=== PATIENT | female | born 1945 | race Hispanic/Latino ===

== ENCOUNTER 2017-07-17 08:50 | Observation (INO) | payer OTHER ==
[2017-07-17] MEDS ORDERED: NA CHLORIDE 0.9% 1,000 ML ONE (09:11)
[2017-07-17] MEDS ORDERED: METOPROLOL TARTRATE 5 MG/5 ML INJ IV ONE (09:11)
[2017-07-17 09:44] LABS: Absolute Lymphocytes (CBC) 2.5 K/uL (0.7-4.9); Absolute Monocytes 0.9 K/uL (0.1-1.3); Absolute Neutrophil 4.5 K/uL (1.8-8.0); Basophils % 0.7 % (0-1.3); Eosinophils % 1.8 % (0-4.4); Hematocrit 38.6 % (36.0-45.0); Lymphocytes % 31.2 % (15.3-44.8); MCH 26.8 pg (27.0-35.0); MCV 81.5 fL (80-100); MPV 9.1 fL (7.6-11.3); Monocytes % 11.6 % (3.3-12.3); RBC Red Blood Cell Count 4.73 M/uL (3.86-4.86)
[2017-07-17 09:47] LABS: Protime INR 0.99
[2017-07-17 09:50] LABS: Potassium 3.7 mEq/L (3.6-5.0)
[2017-07-17 09:53] LABS: Albumin 4.2 g/dL (3.2-5.5); Bilirubin Total 0.5 mg/dL (0.3-1.2); Magnesium 2.2 mg/dL (1.8-2.5); Protein, Total 8.3 g/dL (6.0-8.3)
[2017-07-17 10:12] LABS: Urine Bacteria <20 /HPF (<20); Urine Culture Reflex Order NOT NEEDED; Urine RBC <5 /HPF (NONE SEEN)
--- NOTE | 2017-07-17 10:44 | EDPHYS ---
Physician Documentation [facility] Name: Jazz Jones Age: 72 yrs Sex: Female : 1945 Arrival Date: 07/17/2017 Time: 08:58 Bed 4 Private MD: ED Physician Lawrence Rich HPI: 07/17 10:24 This 72 yrs old Female presents to ER via EMS with complaints of Chest Pain. ps1 10:24 The patient or guardian reports chest pain that is located primarily in the substernal ps1 area. 10:25 Onset: this morning, upon awakening. The pain does not radiate. Associated signs and ps1 symptoms: Pertinent positives: palpitations. The chest pain is described as burning. Duration: The patient or guardian reports a single episode, that is still ongoing. Severity of pain: At its worst the pain was moderate in the emergency department the pain has improved. monitor on arrival demonstrated afib with RVR. . Historical: - Allergies: 09:00 No Known Allergies; ae1 - Home Meds: 09:00 amlodipine oral once daily [Active]; herbal supplements [Active]; Hydrochlorothiazide ae1 Oral [Active]; lisinopril Oral once daily for Hypertension [Active]; Tribenzor 40-5-12.5 mg Oral tab 1 tab once daily [Active]; - PMHx: 09:00 Anxiety; Diabetes - NIDDM; Hypertension; ae1 - Immunization history:: Flu vaccine is not up to date. - Social history:: Smoking status: Patient/guardian denies using tobacco. - Ebola Screening: : Patient negative for fever greater than or equal to 101.5 degrees Fahrenheit, and additional compatible Ebola Virus Disease symptoms Patient denies exposure to infectious person. ROS: 10:25 Constitutional: Negative for fever, chills, and weight loss, Eyes: Negative for injury, ps1 pain, redness, and discharge. 10:25 Abdomen/GI: Negative for abdominal pain, nausea, vomiting, diarrhea, and constipation, Back: Negative for injury and pain, : Negative for injury, bleeding, discharge, and swelling, MS/Extremity: Negative for injury and deformity, Skin: Negative for injury, rash, and discoloration, Neuro: Negative for headache, weakness, numbness, tingling, and seizure. 10:25 Cardiovascular: Positive for chest pain, palpitations. 10:25 Respiratory: Positive for cough, with no reported sputum. Exam: 10:25 Constitutional: This is a well developed, well nourished patient who is awake, alert, ps1 and in no acute distress. Head/Face: Normocephalic, atraumatic. Eyes: Pupils equal round and reactive to light, extra-ocular motions intact. Lids and lashes normal. Conjunctiva and sclera are non-icteric and not injected. ENT: Nares patent. No nasal discharge, no septal abnormalities noted. Tympanic membranes are normal and external auditory canals are clear. Oropharynx with no redness, swelling, or masses, exudates, or evidence of obstruction, uvula midline. Mucous membranes moist. Chest/axilla: Normal chest wall appearance and motion. Nontender with no deformity. No lesions are appreciated. 10:25 Cardiovascular: Rate: tachycardic, Rhythm: irregularly irregular, Pulses: no pulse deficits are appreciated. Vital Signs: 08:58 BP 163 / 64; Pulse 114; Resp 22; Temp 97.9(O); Pulse Ox 93% on R/A; Weight 104.33 kg ae1 (R); 09:29 BP 163 / 64; Pulse 67; Resp 15; Pulse Ox 100% on 2 lpm NC; ae1 10:18 BP 119 / 52; Pulse 50; Resp 19; Pulse Ox 98% on NC; jb1 10:52 BP 136 / 53; Pulse 72; Resp 18; Pulse Ox 98% on R/A; ae1 11:54 BP 139 / 71; Pulse 60; Resp 15; Pulse Ox 98% on R/A; ae1 MDM: 09:01 Data reviewed: vital signs, nurses notes, EMS record, lab test result(s), EKG, ps1 radiologic studies. Medication response: metoprolol iV. ED course: Patient spontaneously converted with IV metoprolol. Will give 50mg PO and plan for admission for chest pain rule out. . 09:09 Patient medically screened. ps1 07/17 09:08 Order name: BNP; Complete Time: 10: ps1 07/17 09:08 Order name: CBC with Diff; Complete Time: 10:23 ps1 07/17 09:08 Order name: Magnesium; Complete Time: 10: ps1 07/17 09:08 Order name: PT-INR; Complete Time: 10: ps1 07/17 09:08 Order name: Ptt, Activated; Complete Time: 10:23 ps1 07/17 09:08 Order name: Troponin (emerg Dept Use Only); Complete Time: 10: ps1 07/17 09:08 Order name: XRAY Chest (1 view); Complete Time: 11:37 ps1 07/17 09:08 Order name: EKG; Complete Time: 09:09 ps1 07/17 09:08 Order name: CMP; Complete Time: 10: [facility] 07/17 09:21 Order name: Urine Culture jb 07/17 09:21 Order name: Urine Microscopic Only; Complete Time: 10:23 jb 07/17 09:29 Order name: Urine Dipstick--Ancillary (enter results) 07/17 09:08 Order name: Cardiac monitoring; Complete Time: 09: ps1 07/17 09:08 Order name: EKG - Nurse/Tech; Complete Time: 09: ps1 07/17 09:08 Order name: IV Saline Lock; Complete Time: 09: ps1 07/17 09:08 Order name: Labs collected and sent; Complete Time: 09: ps1 07/17 09:08 Order name: O2 Per Protocol; Complete Time: 09: ps1 07/17 09:08 Order name: O2 Sat Monitoring; Complete Time: 09: [facility] 07/17 09:08 Order name: Urine Dipstick-Ancillary (obtain specimen); Complete Time: 09: [facility] 07/17 11:04 Order name: Heart Healthy EDAR EC:01 Rate is 152 beats/min. Rhythm is irregular. QRS Dubberly is Normal. QRS interval is normal. ps1 QT interval is normal. ST Segment is depressed in leads V2, V3, V4, V5. Clinical impression: Atrial Fibrillation and atrial fibrillation with RVR. Interpreted by me. Administered Medications: 09:09 Drug: Metoprolol 5 mg Route: IVP; Site: right antecubital; ae1 10:25 Follow up: Response: Cardiac rhythm changed ae1 09:09 Drug: NS 0.9% 1000 ml Route: IV; Rate: 1 bolus; Site: right antecubital; ae1 11:55 Follow up: IV Status: Completed infusion ae1 Disposition: 10:31 Critical Care:. ps1 Disposition: 07/17/17 10:43 Hospitalization ordered by Tad Cerda for Inpatient Admission. Preliminary diagnosis is Atrial fibrillation with RVR. Chest pain. - Bed requested for Telemetry/MedSurg (Inpatient). - Status is Inpatient Admission. ae1 - Condition is Stable. - Problem is new. - Symptoms have improved. UTI on Admission? No Critical care time excluding procedures: 10:31 Critical care time: Bedside Care: 45 minutes. Total time: 45 minutes ps1 Signatures: Dispatcher [employer] Nadira Fuentes RN RN dw Andrea Nelson RN RN ae1 Lawrence Rich MD MD ps1 Corrections: (The following items were deleted from the chart) 11:46 10:43 Hospitalization Ordered by Tad Cerda DO for Inpatient Admission. Preliminary diagnosis is Atrial fibrillation with RVR. Chest pain. Bed requested for Telemetry/MedSurg (Inpatient). Status is Inpatient Admission. Condition is Stable. Problem is new. Symptoms have improved. UTI on Admission? No. ps1 12:27 11:46 07/17/2017 10:43 Hospitalization Ordered by Tad Cerda DO for Inpatient ae1 Admission. Preliminary diagnosis is Atrial fibrillation with RVR. Chest pain. Bed requested for Telemetry/MedSurg (Inpatient). Status is Inpatient Admission. Condition is Stable. Problem is new. Symptoms have improved. UTI on Admission? No. dw
--- NOTE | 2017-07-17 10:44 | ER ---
Nurse's Notes [facility] Name: Jazz Jones Age: 72 yrs Sex: Female : 1945 Arrival Date: 07/17/2017 Time: 08:58 Bed 4 Private MD: Diagnosis: Atrial fibrillation with RVR. Chest pain Presentation: 07/17 09:01 Presenting complaint: EMS states: Patient called EMS for chest pain that awake patient ae1 from sleep this morning. Patient describes pain as "burning" to the med sternal area. Patient also reports cough for the last 2 weeks. Transition of care: patient was not received from another setting of care. Onset of symptoms was July 17, 2017 at 06:00. Risk Assessment: Do you want to hurt yourself or someone else? Patient reports no desire to harm self or others. Initial Sepsis Screen: Does the patient meet any 2 criteria? RR > 20 per min. HR > 90 bpm. Does the patient have a suspected source of infection? No. Patient's initial sepsis screen is negative. Care prior to arrival: Medication(s) given: Normal saline infusion, 500 mL, EKG, afib in the 140s IV initiated. 18 GA, in the right antecubital area. 09:01 Acuity: ISABEL 2 ae1 09:01 Method Of Arrival: EMS: [facility] ae1 Triage Assessment: 09:04 General: Appears uncomfortable, obese, Behavior is cooperative, anxious. Pain: Denies ae1 pain. Complains of pain in Patient denies pain at this time but had chest pain this morning to mid sternal area. Neuro: Level of Consciousness is awake, alert, obeys commands, Oriented to person, place, time, situation. Cardiovascular: Heart tones S1 S2 present Rhythm is atrial fibrillation. Respiratory: Reports shortness of breath at rest Breath sounds are clear bilaterally. GI: Abdomen is round obese, Bowel sounds present X 4 quads. : Urine is clear. Derm: Skin is pale. Historical: - Allergies: 09:00 No Known Allergies; ae1 - Home Meds: 09:00 amlodipine oral once daily [Active]; herbal supplements [Active]; Hydrochlorothiazide ae1 Oral [Active]; lisinopril Oral once daily for Hypertension [Active]; Tribenzor 40-5-12.5 mg Oral tab 1 tab once daily [Active]; - PMHx: 09:00 Anxiety; Diabetes - NIDDM; Hypertension; ae1 - Immunization history:: Flu vaccine is not up to date. - Social history:: Smoking status: Patient/guardian denies using tobacco. - Ebola Screening: : Patient negative for fever greater than or equal to 101.5 degrees Fahrenheit, and additional compatible Ebola Virus Disease symptoms Patient denies exposure to infectious person. Screenin:31 Abuse screen: Denies threats or abuse. Nutritional screening: No deficits noted. ae1 Tuberculosis screening: No symptoms or risk factors identified. Fall Risk None identified. Assessment: 09:16 Reassessment: HR decreased from 114-140, to 74 bpm, still atrial fibrillation. ae1 09:30 Pain: Pain does not radiate. Pain began suddenly. ae1 09:45 Reassessment: Patient was incontinent of urine. Bedding changed, pull-up applied, ae1 patient up to bedside commode as well to urinate again. 10:25 Reassessment: Patient appears in no apparent distress at this time. Patient and/or ae1 family updated on plan of care and expected duration. Pain level reassessed. Patient states feeling better. Patient states symptoms have improved. Pain: Denies pain. 10:53 Reassessment: Patient appears in no apparent distress at this time. Patient and/or ae1 family updated on plan of care and expected duration. Pain level reassessed. Patient states feeling better. Patient states symptoms have improved. Vital Signs: 08:58 BP 163 / 64; Pulse 114; Resp 22; Temp 97.9(O); Pulse Ox 93% on R/A; Weight 104.33 kg ae1 (R); 09:29 BP 163 / 64; Pulse 67; Resp 15; Pulse Ox 100% on 2 lpm NC; ae1 10:18 BP 119 / 52; Pulse 50; Resp 19; Pulse Ox 98% on NC; jb1 10:52 BP 136 / 53; Pulse 72; Resp 18; Pulse Ox 98% on R/A; ae1 11:54 BP 139 / 71; Pulse 60; Resp 15; Pulse Ox 98% on R/A; ae1 ED Course: 08:58 Patient arrived in ED. ae1 09:00 Lawrence Rich MD is Attending Physician. ps1 09:03 Triage completed. ae1 09:03 Oxygen administration via nasal cannula Response to oxygen therapy: symptoms improved. ae1 09:03 Placed in gown. Bed in low position. Call light in reach. Side rails up X2. Cardiac ae1 monitor on. Pulse ox on. NIBP on. Warm blanket given. 09:05 EKG completed in triage. Results shown to MD. ae1 09:15 Andrea Nelson, RN is Primary Nurse. ae1 09:22 Initial lab(s) drawn, by me, sent to lab. EKG done, by ED staff, reviewed by Lawrence Rich MD. 09:26 XRAY Chest (1 view) In Process Unspecified. EDMS 09:30 Arm band placed on left wrist. ae1 10:43 Tad Cerda DO is Hospitalizing Provider. ps1 12:06 No provider procedures requiring assistance completed. Patient admitted, IV remains in ae1 place. Administered Medications: 09:09 Drug: Metoprolol 5 mg Route: IVP; Site: right antecubital; ae1 10:25 Follow up: Response: Cardiac rhythm changed ae1 09:09 Drug: NS 0.9% 1000 ml Route: IV; Rate: 1 bolus; Site: right antecubital; ae1 11:55 Follow up: IV Status: Completed infusion ae1 Outcome: 10:43 Decision to Hospitalize by Provider. ps1 12:06 Admitted to Tele accompanied by tech, family with patient, via stretcher, room 413, ae1 with chart, Report called to FILIPE Guerra 12:06 Condition: stable 12:06 Instructed on follow up and referral plans. the need for admit, Demonstrated understanding of instructions. 12:27 Patient left the ED. ae1 Signatures: Dispatcher [employer] Alexandre Adamson Andrea, FILIPE RN josh1 Lawrence Rich MD MD ps1 Corrections: (The following items were deleted from the chart) 10:25 10:20 Reassessment: ae1 ae1
--- NOTE | 2017-07-17 11:34 | RAD REPORT ---
EXAM DESCRIPTION: RAD - Chest Single View - 07/17/2017 9:33 am CLINICAL HISTORY: Chest pain COMPARISON: April 09 TECHNIQUE: AP portable chest image was obtained 0916 hours . FINDINGS: No focal lung parenchymal process. Lung parenchyma similar to comparison. Heart size is ac centuated by body habitus and portable technique. No true vascular engorgement suspected. No measurab le pleural effusion and no pneumothorax. No gross bony abnormality seen. No acute aortic findings jesus pected. IMPRESSION: No acute cardiopulmonary process. Large body habitus and portable technique accentuate heart, vasculature and lung markings.
[2017-07-17] MEDS ORDERED: ACETAMINOPHEN 500 MG TAB PO PRN (12:52)
--- NOTE | 2017-07-17 12:58 | P.HP ---
Certification for Inpatient Patient admitted to: Observation Patient will require the following post-hospital care: None Practitioner: I am a practitioner with admitting privileges, knowledge of patient current condition, hospital course, and medical plan of care. Services: Services provided to patient in accordance with Admission requirements found in Title 42 Section 412.3 of the Code of Federal Regulations <Ratna Reyes - Last Filed: 07/17/17 13:15> Patient admitted to: Observation With expected LOS: <2 Midnights Patient will require the following post-hospital care: None Practitioner: I am a practitioner with admitting privileges, knowledge of patient current condition, hospital course, and medical plan of care. Services: Services provided to patient in accordance with Admission requirements found in Title 42 Section 412.3 of the Code of Federal Regulations <ElmiraphilomenaTad - Last Filed: 07/17/17 13:54> Patient History Date of Service: 07/17/17 Primary Care Provider: Dr. Burnett Reason for admission: Chest pain with new onset A. fib History of Present Illness: Pt was awoken from sleep with chest pain. Noted palpitations. Pt states this is new but is unable to get rid of an annoying cough for a while now Home medications list reviewed: Yes (Attempted to verify med list with [employer], unable 2nd to [employer] computer prob) - Past Medical/Surgical History Has patient received pneumonia vaccine in the past: No Diabetic: No -: HTN -: Anxiety -: "borderline diabetic" - Social History Smoking Status: Never smoker Alcohol use: No CD- Drugs: No Caffeine use: Yes Place of Residence: Home <Ratna Reyes - Last Filed: 07/17/17 13:15> Date of Service: 07/17/17 History of Present Illness: 72-year-old female with history of hypertension came to the emergency room with palpitations and chest pain. Patient takes multiple medications for blood pressure. Patient had some mild shortness of breath. Edema to the lower extremities noted. Upon evaluation in the emergency room she was found to be in new onset atrial fibrillation. Patient given medication in the ER. This corrected quickly. Patient now on back in normal sinus rhythm. When I evaluated the patient she was not in any distress. Patient remained stable. Patient has seen Cardiology in the past. - Past Medical/Surgical History Has patient received pneumonia vaccine in the past: No Diabetic: No -: Pre diabetes Past Surgical History: Reviewed- Non-Contributory Psychosocial/ Personal History: Patient is - Family History Family History: Reviewed- Non-Contributory - Social History Smoking Status: Never smoker Alcohol use: No CD- Drugs: No Caffeine use: Yes Place of Residence: Home <Tad Cerda - Last Filed: 07/17/17 13:54> Allergies No Known Allergies Allergy (Verified 06/19/16 08:35) Home Medications: Amlodipine [Norvasc*] 10 mg PO DAILY 06/19/16 Hydrochlorothiazide [Hydrochlorothiazide*] 12.5 mg PO DAILY 06/19/16 Lisinopril [Prinivil*] 20 mg PO DAILY 06/19/16 Doxazosin [Cardura*] 1 mg PO BID #60 tab 06/20/16 Review of Systems General: Unremarkable Eyes: Unremarkable ENT: Unremarkable Respiratory: Cough Cardiovascular: Chest Pain, Palpitations Gastrointestinal: Unremarkable Genitourinary: Unremarkable Musculoskeletal: Unremarkable Integumentary: Unremarkable Neurological: Unremarkable Lymphatics: Unremarkable <AmyAbbyy - Last Filed: 07/17/17 13:15> General: Unremarkable Eyes: Unremarkable ENT: Unremarkable Respiratory: Cough Cardiovascular: Chest Pain, Palpitations Gastrointestinal: Unremarkable Genitourinary: Unremarkable Musculoskeletal: Unremarkable Integumentary: As per HPI (Edema to the lower extremities) Neurological: Unremarkable Lymphatics: Unremarkable <Tad Cerad - Last Filed: 07/17/17 13:54> Physical Examination - Vital Signs Temperature: 97.9 F Blood Pressure: 139/71 Pulse: 60 Respirations: 15 Pulse Ox (%): 98 - Physical Exam General: In no apparent distress, Oriented x3 HEENT: Atraumatic, Normocephalic Neck: Supple, 2+ carotid pulse no bruit, JVD not distended Respiratory: Normal air movement, Other (bases with mild crackles) Cardiovascular: Normal pulses, No gallops, No rubs Gastrointestinal: Normal bowel sounds Musculoskeletal: No clubbing, No swelling Integumentary: No rashes Neurological: Normal speech, Normal strength at 5/5 x4 extr Lymphatics: No axilla or inguinal lymphadenopathy External genitalia: Deferred Rectal: Deferred - Studies Laboratory Data (last 24 hrs) 07/17/17 09:15: PT 11.7, INR 0.99, APTT 30.4 05/27/18 09:15: Sodium 140, Potassium 3.7, BUN 19, Creatinine 0.78, Glucose 100 , Magnesium 2.2, Total Bilirubin 0.5, AST 27, ALT 17, Alkaline Phosphatase 73 07/17/17 09:15: WBC 8.2, Hgb 12.7, Hct 38.6, Plt Count 251 07/17/17 09:15: B-Natriuretic Peptide 84 <Ratna Reyes - Last Filed: 07/17/17 13:15> - Physical Exam General: Alert, In no apparent distress, Oriented x3, Cooperative HEENT: Atraumatic, Normocephalic, PERRLA, Mucous membr. moist/pink Neck: Supple, 2+ carotid pulse no bruit, JVD not distended Respiratory: Crackles/rales (Crackles to the bases), Other Cardiovascular: Normal pulses (Patient now in normal sinus rhythm, rate controlled previously in atrial fibrillation) Gastrointestinal: Normal bowel sounds, Non-distended, No tenderness, No masses, No rebound, No guarding Integumentary: Tenderness/swelling (Mild pitting edema to the lower extremities bilateral) Neurological: Normal speech, Normal strength at 5/5 x4 extr, Normal tone, Normal affect Lymphatics: No axilla or inguinal lymphadenopathy - Studies Laboratory Data (last 24 hrs) 07/17/17 09:15: PT 11.7, INR 0.99, APTT 30.4 07/17/17 09:15: Sodium 140, Potassium 3.7, BUN 19, Creatinine 0.78, Glucose 100 , Magnesium 2.2, Total Bilirubin 0.5, AST 27, ALT 17, Alkaline Phosphatase 73 07/17/17 09:15: WBC 8.2, Hgb 12.7, Hct 38.6, Plt Count 251 07/17/17 09:15: B-Natriuretic Peptide 84 <Tad Cerda - Last Filed: 07/17/17 13:54> Assessment and Plan - Problems (Diagnosis) (1) Atrial fibrillation Current Visit: Yes Status: Acute Plan: Atrial fibrillation - Metoprolol po, will observe for return of chest pain or a. fib, Cardiology consult, anticoagulation Qualifiers: Atrial fibrillation type: paroxysmal Qualified Code(s): I48.0 - Paroxysmal atrial fibrillation Discharge Plan: Home Plan to discharge in: 24 Hours - Advance Directives Does patient have a Living Will: No Does patient have a Durable POA for Healthcare: No - Code Status/Comfort Care Code Status Assessed: Yes Code Status: Full Code Time Spent Managing Pts Care (In Minutes): 30 <Ratna Reyes - Last Filed: 07/17/17 13:15> - Problems (Diagnosis) (1) Palpitations Current Visit: Yes Status: Acute Plan: Patient presented with new onset atrial fibrillation with RVR. Patient now in normal sinus rhythm. Case discussed with cardiology. Will continue with metoprolol 50 mg 1 pill twice daily. Patient on multiple medications for blood pressure. Will hold her her home medications. Will review with cardiology. Will start DVT prophylaxis. Will continue with aspirin 325 mg daily. Will check tsh, echocardiogram. Mild overload noted. Likely underlying CHF. Will start Lasix. Recheck chest x-ray in the morning. (2) Chest pain Current Visit: Yes Status: Acute Plan: Will monitor cardiac enzymes. Will continue with above plan of care. Qualifiers: Chest pain type: unspecified Qualified Code(s): R07.9 - Chest pain, unspecified (3) Shortness of breath Current Visit: Yes Status: Acute Plan: Suspect underlying CHF. Echocardiogram ordered. Lasix ordered. Cardiology consulted. Will maintain sats above 90%. Will teach 1500 cc per day fluid restriction. (4) CHF (congestive heart failure) Current Visit: Yes Status: Suspected Plan: Suspect systolic dysfunction. Continue as above. IV Lasix started. Echocardiogram ordered. Cardiology consulted. Will teach on 1500 cc per day fluid restriction and low-salt diet. Qualifiers: Heart failure type: systolic Heart failure chronicity: acute on chronic Qualified Code(s): I50.23 - Acute on chronic systolic (congestive) heart failure (5) Hypertension Current Visit: Yes Status: Chronic Plan: Patient now on metoprolol 50 mg 1 pill twice daily. Will hold her other home medications. Qualifiers: Hypertension type: essential hypertension Qualified Code(s): I10 - Essential (primary) hypertension (6) Anxiety Current Visit: Yes Status: Chronic Plan: Will provide medication for anxiety. (7) Atrial fibrillation Current Visit: Yes Status: Acute Plan: Patient presented with atrial fibrillation with RVR. Now in normal sinus rhythm. Will continue with metoprolol 50 mg 1 pill twice daily. Will monitor closely. Will continue above plan of care. Will start DVT prophylaxis. Will start aspirin 325 mg daily. Cardiology consulted. Await further recommendations. Echocardiogram ordered. Qualifiers: Atrial fibrillation type: paroxysmal Qualified Code(s): I48.0 - Paroxysmal atrial fibrillation Discharge Plan: Home Plan to discharge in: 24 Hours - Advance Directives Does patient have a Living Will: No Does patient have a Durable POA for Healthcare: No - Code Status/Comfort Care Code Status Assessed: Yes Code Status: Full Code Physician Review: Patient Assessed, Agree with Above Assessment and Plan Time Spent Managing Pts Care (In Minutes): 55 <Tad Cerda - Last Filed: 07/17/17 13:54>
[2017-07-17 15:38] LABS: Urine Blood TRACE (NEG); Urine Glucose NEGATIVE (NEG); Urine Protein NEGATIVE (NEG); Urine Specific Gravity 1.015 (1.005-1.030); Urine pH 7.5 (5.0-7.0)
[2017-07-17 16:11] VITALS: BMI 44.9
[2017-07-17] MEDS ORDERED: ENOXAPARIN 40 MG/0.4 ML SQ SCH (17:00)
[2017-07-17] MEDS: FUROSEMIDE 20 MG/ 2ML VIAL IV SCH (17:38)
[2017-07-17] MEDS: METOPROLOL TAR 50 MG TAB PO SCH (20:39)
[2017-07-17] MEDS ORDERED: ATORVASTATIN 40 MG TAB PO SCH (21:00)
[2017-07-18 04:33] LABS: Absolute Lymphocytes (CBC) 2.3 K/uL (0.7-4.9); Absolute Neutrophil 3.7 K/uL (1.8-8.0); Basophils % 0.8 % (0-1.3); Hematocrit 33.6 % (36.0-45.0); Lymphocytes % 31.6 % (15.3-44.8); MCH 26.4 pg (27.0-35.0); MCV 81.8 fL (80-100); Monocytes % 14.4 % (3.3-12.3); RBC Red Blood Cell Count 4.11 M/uL (3.86-4.86)
[2017-07-18 05:19] LABS: Potassium 3.6 mEq/L (3.6-5.0); Thyroid Stimulating Hormone 2.3 uIU/mL (0.34-5.60)
--- NOTE | 2017-07-18 07:59 | RAD REPORT ---
EXAM DESCRIPTION: RAD - Chest Pa And Lat (2 Views) - 07/18/2017 7:10 am CLINICAL HISTORY: CHF COMPARISON: July 17 TECHNIQUE: PA and lateral views of the chest were obtained. FINDINGS: The lungs are clear of a focal mass or infiltrate. Trachea is midline. Heart size and pul monary vasculature within limits of normal. Known pulmonary edema pattern seen and no significant sahara lure or volume overload. Mild prominence of the interstitial markings is believed to be baseline for the patient. No pleural effusion or pneumothorax seen. Mild thoracic spine degenerative change present. No acute bone findings seen. No aortic abnormality. IMPRESSION: No acute cardiopulmonary process. No new or progressive finding from prior study.
[2017-07-18] MEDS: FUROSEMIDE 20 MG/ 2ML VIAL IV SCH (08:37)
[2017-07-18] MEDS: METOPROLOL TAR 50 MG TAB PO SCH (08:42)
--- NOTE | 2017-07-18 08:50 | P.DS ---
Admission Date: 07/17/17 Discharge Date: 07/18/17 Primary Care Provider: Dr. Burnett Disposition: ROUTINE DISCHARGE Discharge Condition: GOOD Reason for Admission: Chest pain with new onset A. fib Consultations: Cardiology-Dr. Hall - Problems (1) Palpitations Current Visit: Yes Status: Acute (2) Chest pain Current Visit: Yes Status: Acute Qualifiers: Chest pain type: unspecified Qualified Code(s): R07.9 - Chest pain, unspecified (3) Shortness of breath Current Visit: Yes Status: Acute (4) CHF (congestive heart failure) Current Visit: Yes Status: Suspected Qualifiers: Heart failure type: systolic Heart failure chronicity: acute on chronic Qualified Code(s): I50.23 - Acute on chronic systolic (congestive) heart failure (5) Hypertension Current Visit: Yes Status: Chronic Qualifiers: Hypertension type: essential hypertension Qualified Code(s): I10 - Essential (primary) hypertension (6) Anxiety Current Visit: Yes Status: Chronic (7) Atrial fibrillation Current Visit: Yes Status: Acute Qualifiers: Atrial fibrillation type: paroxysmal Qualified Code(s): I48.0 - Paroxysmal atrial fibrillation Brief History of Present Illness: 72-year-old female with history of hypertension came to the emergency room with palpitations and chest pain. Patient takes multiple medications for blood pressure. Patient had some mild shortness of breath. Edema to the lower extremities noted. Upon evaluation in the emergency room she was found to be in new onset atrial fibrillation. Patient given medication in the ER. This corrected quickly. Patient now on back in normal sinus rhythm. When I evaluated the patient she was not in any distress. Patient remained stable. Patient has seen Cardiology in the past. Hospital Course: Patient presented with palpitations. Patient found to have new onset atrial fibrillation. This resolved quickly in the ER. Patient was seen by Cardiology. Patient started on beta-dipti therapy. Patient remained normal sinus rhythm during her stay. At discharge patient will continue with metoprolol 50 mg 1 pill twice daily. Patient may continue with aspirin 325 mg 1 pill daily. No need for chronic anti coagulation therapy at this time. Patient will need to follow up with cardiology within the next 5 days to follow up this hospitalization. Patient will need outpatient echocardiogram and possible cardiac stress test to further address her condition. Education on atrial fibrillation will be provided. Patient has hypertension. Medications have been adjusted. At discharge Derek and Alis had been discontinued. New medication includes metoprolol 50 mg 1 pill twice daily. Patient may continue with lisinopril 20 mg daily and hydrochlorothiazide 12.5 mg once daily. Recommendation is to maintain blood pressures less 150/80. Further adjustment can be done by her PCP or cardiology. Patient has hyperlipidemia. LDL 112. New medication includes Lipitor 40 mg 1 pill once daily. Suspect CHF. At discharge patient will continue with a 1500 cc per day fluid restriction and low-salt diet. Patient will follow up with cardiology to have outpatient echocardiogram and cardiac evaluation. Patient will continue with hydrochlorothiazide 12.5 mg 1 pill once daily. Vital Signs/Physical Exam: Temp Pulse Resp BP Pulse Ox 97.5 F 58 20 151/22 H 98 07/18/17 04:00 07/18/17 08:42 07/18/17 04:00 07/18/17 08:42 07/18/17 04:00 General: Alert, In no apparent distress, Oriented x3, Cooperative HEENT: Atraumatic, Mucous membr. moist/pink Neck: Supple Respiratory: Clear to auscultation bilaterally, Normal air movement Cardiovascular: Normal pulses, Regular rate/rhythm Gastrointestinal: Normal bowel sounds, Soft and benign, Non-distended, No tenderness, No masses, No rebound, No guarding Musculoskeletal: No erythema, No tenderness, No warmth Integumentary: No tenderness/swelling, No erythema, No warmth, No cyanosis Neurological: Normal speech, Normal strength at 5/5 x4 extr, Normal tone, Normal affect Lymphatics: No axilla or inguinal lymphadenopathy Laboratory Data at Discharge: WBC 7.2 K/uL (4.3-10.9) 07/18/17 03:56 Hgb 10.9 g/dL (12.0-15.0) L 07/18/17 03:56 Hct 33.6 % (36.0-45.0) L 07/18/17 03:56 Plt Count 226 K/uL (152-406) 07/18/17 03:56 PT 11.7 SECONDS (9.5-12.5) 07/17/17 09:15 INR 0.99 07/17/17 09:15 APTT 30.4 SECONDS (24.3-36.9) 07/17/17 09:15 Sodium 136 mEq/L (135-145) 07/18/17 03:56 Potassium 3.6 mEq/L (3.6-5.0) 07/18/17 03:56 BUN 22 mg/dL (6-20) H 07/18/17 03:56 Creatinine 0.88 mg/dL (0.44-1.00) 07/18/17 03:56 Glucose 94 mg/dL (65-120) 07/18/17 03:56 Magnesium 2.2 mg/dL (1.8-2.5) 07/17/17 09:15 Total Bilirubin 0.5 mg/dL (0.3-1.2) 07/17/17 09:15 AST 27 IU/L (10-42) 07/17/17 09:15 ALT 17 IU/L (10-60) 07/17/17 09:15 Alkaline Phosphatase 73 IU/L (42-121) 07/17/17 09:15 Troponin I < 0.03 ng/mL (<0.03) 07/17/17 17:00 B-Natriuretic Peptide 84 pg/ml (<=100) 07/17/17 09:15 Triglycerides 98 mg/dL (35-160) 07/18/17 03:56 Cholesterol 200 mg/dL (<200) 07/18/17 03:56 HDL Cholesterol 68 mg/dL (29-89) 07/18/17 03:56 Cholesterol/HDL Ratio 2.94 07/18/17 03:56 Home Medications: Hydrochlorothiazide [Hydrochlorothiazide*] 12.5 mg PO DAILY 06/19/16 Lisinopril [Prinivil*] 20 mg PO DAILY 06/19/16 Aspirin Tab [Sissy Aspirin*] 325 mg PO DAILY #90 tab 07/18/17 Atorvastatin Calcium [Lipitor] 40 mg PO BEDTIME #30 tab 07/18/17 Metoprolol Tartrate [Lopressor*] 50 mg PO BID #60 tab 07/18/17 New Medications: Aspirin Tab [Sissy Aspirin*] 325 mg PO DAILY #90 tab Atorvastatin Calcium [Lipitor] 40 mg PO BEDTIME #30 tab Metoprolol Tartrate [Lopressor*] 50 mg PO BID #60 tab Patient Discharge Instructions: 1. Patient will need to follow up with her PCP in 1 week to follow up this hospitalization. 2. Patient presented with palpitations. Patient found to have new onset atrial fibrillation. This resolved quickly. Patient was seen by Cardiology. Patient started on beta- dipti therapy. At discharge patient will continue with metoprolol 50 mg 1 pill twice daily. Patient may continue with aspirin 325 mg 1 pill daily. No need for chronic anti coagulation therapy at this time. Patient will need to follow up with cardiology within the next 5 days to follow up this hospitalization. Patient will need outpatient echocardiogram and possible cardiac stress test to further address her condition. Education on atrial fibrillation will be provided. 3. Patient has hypertension. Medications have been adjusted. At discharge Norvasc and Cardura had been discontinued. New medication includes metoprolol 50 mg 1 pill twice daily. Patient may continue with lisinopril 20 mg daily and hydrochlorothiazide 12.5 mg once daily. Recommendation is to maintain blood pressures less 150/80. Further adjustment can be done by her PCP or cardiology. 4. Patient has hyperlipidemia. LDL 112. New medication includes Lipitor 40 mg 1 pill once daily. 5. Suspect CHF. At discharge patient will continue with a 1500 cc per day fluid restriction and low-salt diet. Patient will follow up with cardiology to have outpatient echocardiogram and cardiac evaluation. Patient will continue with hydrochlorothiazide 12.5 mg 1 pill once daily. Diet: AHA Activity: Fall precautions Time spent managing pt's care (in minutes): 55
[2017-07-18] MEDS ORDERED: ASPIRIN 325 MG TAB PO SCH (09:00)
[2017-07-18] MEDS ORDERED: LISINOPRIL 20 MG TAB PO SCH (09:00)
[2017-07-18] MEDS ORDERED: hydroCHLOROthiazide 12.5 MG CAP PO SCH (09:00)
--- NOTE | 2017-07-18 09:32 | CON ---
Date of Consultation: 07/17/2017 Reason For Consultation: Atypical chest pain and atrial fibrillation that have already resolved. History Of Present Illness: Ms. Jones is a 72-year-old woman. We have seen her in the office in the past. She basically has a history of anxiety, diabetes, and hypertension. She came in with atypica l chest pain, was noted to be in atrial fibrillation with rapid ventricular response. IV beta-blocke rs and p.o. beta-blockers were given. She converted to normal sinus rhythm, and her chest pain went away. She denied PND, orthopnea, pedal edema, or syncope. Denies any nausea or vomiting. Has had s ome shortness of breath and diaphoresis with her chest pain. She has already ruled out from [place] stand point. Past Medical History: As stated above. Allergies: NONE. Review of Systems: Negative. Social History: Negative. Family History: Negative. Medications: Include amlodipine, lisinopril, and hydrochlorothiazide. Physical Examination: Vital Signs: Blood pressure was 140/60, O2 saturation was 97% on room air. I's and O's were adequat e. HEENT: Negative. Neck: Supple without any bruit, lymphadenopathy, JVD, or thyromegaly. Chest: Clear to auscultation and percussion. Cardiac: Revealed a regular rhythm and rate without any murmurs, gallops, or rubs. Abdomen: Benign. Extremities: Revealed no clubbing, cyanosis, or edema. Diagnostic Data: All normal except for the EKG that was stated earlier. Her chest x-ray was negativ e. The last EKG prior to this was in March 2017, and she showed sinus bradycardia at that time. Impression And Plan: Ms. Jones is normally a patient of Dr. Diana, but she had not seen him for a few years. Again, I think Ms. Jones probably needs to be on a beta-dipti and aspirin in addition t o her lisinopril and amlodipine. From my standpoint, she can go home whenever it is okay with Dr. Bernardo horvath. I would like to see her in the office in the very near future. She really needs to have an ec hocardiogram and a Lexiscan, and then decide whether to anticoagulate her with Coumadin or any of the novel anticoagulants depending on her findings. Case was discussed with the patient and the family. She can go home whenever it is okay with Dr. Cerda. ALICIA/GARRISON Voice ID: [id number] Report ID: [id number]
[2017-07-18 11:17] VITALS: TEMP 97.6
[2017-07-18 12:23] VITALS: O2SAT 99
--- NOTE | 2017-07-18 12:43 | EKG ---
Test Date: 2017-07-18 Test Time: 07:45:17 Box Sealing Machine Operator: MARCO MEASUREMENT RESULTS: Intervals: Rate: 47 [place]: 204 QRSD: 80 QT: 468 QTc: 414 [place]: P: 26 [place]: 204 QRS: 37 T: 35 INTERPRETIVE STATEMENTS: Marked sinus bradycardia with sinus arrhythmia Abnormal ECG Compared to ECG 07/17/2017 09:55:43 Sinus rhythm no longer present Electronically Signed On 07-18-17 12:43:20 CDT by Chuy Hall
--- NOTE | 2017-07-18 12:47 | EKG ---
Test Date: 2017-07-17 Test Time: 09:01:52 Core Feeder: JODY MEASUREMENT RESULTS: Intervals: Rate: 152 [place]: QRSD: 74 QT: 254 QTc: 403 [place]: P: [place]: QRS: -4 T: 132 INTERPRETIVE STATEMENTS: Atrial fibrillation with rapid ventricular response Marked ST abnormality, possible inferior subendocardial injury Abnormal ECG Compared to ECG 04/09/2017 10:35:53 ST (T wave) deviation now present Sinus bradycardia no longer present Left ventricular hypertrophy no longer present Electronically Signed On 07-18-17 12:43:55 CDT by Chuy Hall
--- NOTE | 2017-07-18 12:47 | EKG ---
Test Date: 2017-07-17 Test Time: 09:55:43 Supervisor Microwave: JODY MEASUREMENT RESULTS: Intervals: Rate: 63 [place]: 202 QRSD: 70 QT: 412 QTc: 421 [place]: P: 48 [place]: 202 QRS: 7 T: 18 INTERPRETIVE STATEMENTS: Normal sinus rhythm Normal ECG Compared to ECG 07/17/2017 09:01:52 Atrial fibrillation no longer present ST (T wave) deviation no longer present Electronically Signed On 07-18-17 12:43:54 CDT by Chuy Hall
[2017-07-18 13:49] VITALS: BP 134/56
== END 2017-07-18 12:43 | disposition home or self-care (01) ==
LOC: ER 08:50 → ERHOLD 11:00 → INTOOBSV 11:00 → 4TH 12:13
PROVIDERS: ADMIT Family Medicine; ATTEND Family Medicine
DX: I48.0 Paroxysmal atrial fibrillation (principal); R07.9 Chest pain, unspecified; R00.2 Palpitations; I10 Essential (primary) hypertension; F41.9 Anxiety disorder, unspecified; E78.5 Hyperlipidemia, unspecified
CPT/HCPCS: 36415; 71045; 71046; 80048; 80053; 80061; 83735; 83880; 84439; 84443; 84484 ×3; 85025 ×2; 85610; 85730; 87077; 87086; 87088; 87186; 93005 ×3; 96361; 96374; 99285; G0378 ×2; J1650; J1940 ×2; J7030; 81003; 81015

== ENCOUNTER 2017-08-04 09:09 | Emergency (ER) | payer OTHER ==
[2017-08-04 09:44] LABS: Absolute Lymphocytes (CBC) 1.6 K/uL (0.7-4.9); Absolute Monocytes 0.8 K/uL (0.1-1.3); Eosinophils % 2.6 % (0-4.4); Hematocrit 36.8 % (36.0-45.0); Lymphocytes % 23.3 % (15.3-44.8); MCH 27.3 pg (27.0-35.0); MCV 82.1 fL (80-100); Monocytes % 12.5 % (3.3-12.3); RBC Red Blood Cell Count 4.49 M/uL (3.86-4.86)
[2017-08-04 09:54] LABS: Urine Blood TRACE (NEG); Urine Glucose NEGATIVE (NEG); Urine Protein TRACE (NEG); Urine Specific Gravity 1.015 (1.005-1.030)
[2017-08-04 10:09] LABS: Potassium 3.6 mEq/L (3.6-5.0)
--- NOTE | 2017-08-04 10:44 | EDPHYS ---
Physician Documentation [facility] Name: Jazz Jones Age: 72 yrs Sex: Female : 1945 Arrival Date: 08/04/2017 Time: 09:10 Bed 6 Private MD: ED Physician Elian Mccormack HPI: 08/04 09:11 This 72 yrs old Female presents to ER via Unassigned with complaints of rn Shortness Of Breath. 09:11 The patient has shortness of breath while cleaning. Onset: The symptoms/episode rn began/occurred just prior to arrival. Duration: The symptoms are intermittent. Severity of symptoms: At their worst the symptoms were moderate in the emergency department the symptoms have resolved. The patient has experienced similar episodes in the past. Reports cleaning, has hx of anxiety, states the clutter andsmall area was making her anxious, felt palpitations and sob, has resolved since EMS arrival. No other changes recently, + chronic cough from lisinopril, no fever. NO current chest pain/sob.. Historical: - Allergies: 09:16 No Known Allergies; tw2 - Home Meds: 09:16 Tribenzor 40-5-12.5 mg Oral tab 1 tab once daily [Active]; lisinopril Oral once daily tw2 for Hypertension [Active]; Hydrochlorothiazide Oral [Active]; herbal supplements [Active]; amlodipine oral once daily [Active]; - PMHx: 09:16 Anxiety; Diabetes - NIDDM; Hypertension; tw2 - Immunization history:: Adult Immunizations up to date. - Family history:: not pertinent. - Social history:: Smoking status: Patient/guardian denies using tobacco. - Ebola Screening: : Patient denies travel to an Ebola-affected area in the 21 days before illness onset. - Hospitalizations: : No recent hospitalization is reported. ROS: 09:11 Constitutional: Negative for fever, chills, and weight loss, Neck: Negative for injury, rn pain, and swelling, Cardiovascular: Negative for chest pain, and edema, Respiratory: Negative for cough, wheezing, and pleuritic chest pain, Abdomen/GI: Negative for abdominal pain, nausea, vomiting, diarrhea, and constipation, MS/Extremity: Negative for injury and deformity, Skin: Negative for injury, rash, and discoloration, Neuro: Negative for headache, weakness, and seizure. Exam: 09:11 Constitutional: This is a well developed, well nourished patient who is awake, alert, rn and in no acute distress. Head/Face: Normocephalic, atraumatic. Eyes: Pupils equal round and reactive to light, extra-ocular motions intact. Lids and lashes normal. Conjunctiva and sclera are non-icteric and not injected. Cornea within normal limits. Periorbital areas with no swelling, redness, or edema. Neck: Trachea midline, no thyromegaly or masses palpated, and no cervical lymphadenopathy. Supple, full range of motion without nuchal rigidity, or vertebral point tenderness. No Meningismus. Cardiovascular: Regular rate and rhythm with a normal S1 and S2. No gallops, murmurs, or rubs. Normal PMI, no JVD. No pulse deficits. Respiratory: Lungs have equal breath sounds bilaterally, clear to auscultation and percussion. No rales, rhonchi or wheezes noted. No increased work of breathing, no retractions or nasal flaring. Abdomen/GI: Soft, non-tender, with normal bowel sounds. No distension or tympany. No guarding or rebound. No evidence of tenderness throughout. MS/ Extremity: Pulses equal, no cyanosis. Neurovascular intact. Full, normal range of motion. Equal circumference. Neuro: Awake and alert, GCS 15, oriented to person, place, time, and situation. Cranial nerves II-XII grossly intact. Motor strength 5/5 in all extremities. Sensory grossly intact. 09:31 ECG was reviewed by the Attending Physician. rn Vital Signs: 09:11 BP 195 / 68; Pulse 48; Resp 17; Temp 98.5(O); Pulse Ox 97% on R/A; Pain 0/10; tw2 10:19 BP 179 / 67; Pulse 42; Resp 17; Pulse Ox 97% on R/A; tw2 11:33 BP 148 / 82; Pulse 86; Resp 17; Pulse Ox 95% on R/A; tw2 MDM: 09:10 Patient medically screened. rn 10:42 Differential diagnosis: Anxiety Reaction pneumonia, Pneumothorax Psychogenic pulmonary rn edema. Data reviewed: vital signs, nurses notes, lab test result(s), EKG, radiologic studies, plain films, and as a result, I will discharge patient. Counseling: I had a detailed discussion with the patient and/or guardian regarding: the historical points, exam findings, and any diagnostic results supporting the discharge/admit diagnosis, lab results, radiology results, the need for outpatient follow up, to return to the emergency department if symptoms worsen or persist or if there are any questions or concerns that arise at home. Special discussion: I discussed with the patient/guardian in detail that at this point there is no indication for admission to the hospital. It is understood, however, that if the symptoms persist or worsen the patient needs to return immediately for re-evaluation. 08/04 09:11 Order name: CBC with Diff; Complete Time: 10:06 rn 08/04 09:11 Order name: Basic Metabolic Panel; Complete Time: 10:33 rn 08/04 09:11 Order name: Troponin (emerg Dept Use Only); Complete Time: 10:33 rn 08/04 09:11 Order name: BNP; Complete Time: 10:33 08/04 09:11 Order name: XRAY Chest Pa And Lat (2 Views) 08/04 09:52 Order name: Urine Dipstick--Ancillary (enter results); Complete Time: 10:06 08/04 09:11 Order name: IV Start; Complete Time: 09:35 rn 08/04 09:11 Order name: EKG; Complete Time: 09:11 rn 08/04 09:11 Order name: EKG - Nurse/Tech; Complete Time: 09:16 rn EC:31 Rate is 49 beats/min. Rhythm is regular. QRS [place] is Normal. [place] interval is normal. QRS rn interval is normal. No Q waves. T waves are Normal. No ST changes noted. Clinical impression: Sinus bradycardia. Interpreted by me. Administered Medications: No medications were administered Disposition: 08/04/17 10:42 Discharged to Home. Impression: Hyperventilation, Anxiety disorder, unspecified. - Condition is Stable. - Discharge Instructions: Panic Attacks, Hyperventilation, Generalized Anxiety Disorder. - Medication Reconciliation Form, Thank You Letter, Antibiotic Education, Prescription Opioid Use form. - Follow up: Private Physician; When: As needed; Reason: Recheck today's complaints, Re-evaluation by your physician. - Problem is new. - Symptoms have improved. Signatures: Dispatcher [employer] EDMS Mccormack, Elian, MD MD rn Borden, Amada, RN RN tw2 Corrections: (The following items were deleted from the chart) 11:47 10:42 08/04/2017 10:42 Discharged to Home. Impression: Hyperventilation; Anxiety tw2 disorder, unspecified. Condition is Stable. Forms are Medication Reconciliation Form, Thank You Letter, Antibiotic Education, Prescription Opioid Use. Follow up: Private Physician; When: As needed; Reason: Recheck today's complaints, Re-evaluation by your physician. Problem is new. Symptoms have improved. rn
--- NOTE | 2017-08-04 10:44 | ER ---
Nurse's Notes [facility] Name: Jazz Jones Age: 72 yrs Sex: Female : 1945 Arrival Date: 08/04/2017 Time: 09:10 Bed 6 Private MD: Diagnosis: Hyperventilation;Anxiety disorder, unspecified Presentation: 08/04 09:10 Presenting complaint: EMS states: pt c/o SOB, 95%RA upon arrival, pt states she just tw2 moved to a smaller apartment and is anxious over the clutter, vs stable. Transition of care: patient was not received from another setting of care. Onset of symptoms was August 04, 2017. Risk Assessment: Do you want to hurt yourself or someone else? Patient reports no desire to harm self or others. Initial Sepsis Screen: Does the patient meet any 2 criteria? No. Patient's initial sepsis screen is negative. Does the patient have a suspected source of infection? No. Patient's initial sepsis screen is negative. Care prior to arrival: None. 09:10 Method Of Arrival: EMS: [facility] tw2 09:10 Acuity: ISABEL 3 tw2 Triage Assessment: 09:36 General: Appears in no apparent distress. Respiratory: Reports shortness of breath tw2 while cleaning and being anxious d/t clutter in smaller apartment Onset: The symptoms/episode began/occurred this morning, the patient has mild shortness of breath. Historical: - Allergies: 09:16 No Known Allergies; tw2 - Home Meds: 09:16 Tribenzor 40-5-12.5 mg Oral tab 1 tab once daily [Active]; lisinopril Oral once daily tw2 for Hypertension [Active]; Hydrochlorothiazide Oral [Active]; herbal supplements [Active]; amlodipine oral once daily [Active]; - PMHx: 09:16 Anxiety; Diabetes - NIDDM; Hypertension; tw2 - Immunization history:: Adult Immunizations up to date. - Family history:: not pertinent. - Social history:: Smoking status: Patient/guardian denies using tobacco. - Ebola Screening: : Patient denies travel to an Ebola-affected area in the 21 days before illness onset. - Hospitalizations: : No recent hospitalization is reported. Screenin:15 Abuse screen: Denies threats or abuse. Nutritional screening: No deficits noted. tw2 Tuberculosis screening: No symptoms or risk factors identified. Fall Risk None identified. Assessment: 09:12 General: Appears in no apparent distress. obese, well groomed, Behavior is calm, tw2 cooperative, appropriate for age. Pain: Denies pain. Neuro: Level of Consciousness is awake, alert, obeys commands, Oriented to person, place, time, situation. Cardiovascular: Denies chest pain, shortness of breath, Rhythm is sinus bradycardia. Respiratory: Airway is patent Respiratory effort is even, unlabored, Respiratory pattern is regular, symmetrical, Breath sounds are clear bilaterally. GI: No signs and/or symptoms were reported involving the gastrointestinal system. Abdomen is round non-distended, Bowel sounds present X 4 quads. : No signs and/or symptoms were reported regarding the genitourinary system. EENT: No signs and/or symptoms were reported regarding the EENT system. Derm: No signs and/or symptoms reported regarding the dermatologic system. Musculoskeletal: Range of motion: intact in all extremities. 09:35 Reassessment: pt taken via w/c to xray at this time. tw2 10:19 Reassessment: Patient appears in no apparent distress at this time. No changes from tw2 previously documented assessment. Patient and/or family updated on plan of care and expected duration. Pain level reassessed. Patient is alert, oriented x 3, equal unlabored respirations, skin warm/dry/pink. 11:33 Reassessment: Patient appears in no apparent distress at this time. No changes from tw2 previously documented assessment. Patient and/or family updated on plan of care and expected duration. Pain level reassessed. Patient is alert, oriented x 3, equal unlabored respirations, skin warm/dry/pink. Vital Signs: 09:11 BP 195 / 68; Pulse 48; Resp 17; Temp 98.5(O); Pulse Ox 97% on R/A; Pain 0/10; tw2 10:19 BP 179 / 67; Pulse 42; Resp 17; Pulse Ox 97% on R/A; tw2 11:33 BP 148 / 82; Pulse 86; Resp 17; Pulse Ox 95% on R/A; tw2 ED Course: 09:10 Patient arrived in ED. tw2 09:10 Elian Mccormack MD is Attending Physician. rn 09:10 Bed in low position. Call light in reach. Side rails up X 1. phototypesetting equipment monitor on. Pulse tw2 ox on. NIBP on. Warm blanket given. 09:11 Triage completed. tw2 09:11 Arm band placed on. tw2 09:15 EKG done, by ED staff, reviewed by Elian Mccormack MD. jp3 09:17 Amada Borden, RN is Primary Nurse. tw2 09:25 No provider procedures requiring assistance completed. Inserted saline lock: 22 gauge tw2 in right antecubital area, using aseptic technique. Blood collected. 09:30 Urine collected: clean catch specimen, clear, deonte colored. jb1 09:42 X-ray completed. Patient tolerated procedure well. Patient moved to radiology via jb2 wheelchair. Patient moved back from radiology. 09:43 XRAY Chest Pa And Lat (2 Views) In Process Unspecified. EDMS 11:47 IV discontinued, intact, bleeding controlled, No redness/swelling at site. Pressure tw2 dressing applied. Administered Medications: No medications were administered Outcome: 10:42 Discharge ordered by MD. rn 11:47 Patient left the ED. tw2 11:47 Discharged to home ambulatory, with significant other. tw2 11:47 Condition: stable 11:47 Discharge instructions given to patient, significant other, Instructed on discharge instructions, follow up and referral plans. Demonstrated understanding of instructions, follow-up care. Signatures: Dispatcher [employer] EDMS Alexandre Del Real jb1 Clyde Villarreal jb2 Elian Mccormack MD MD rn Wise, Tara, RN RN tw2 Gregorio Jung jp3 Corrections: (The following items were deleted from the chart) 09:31 09:30 Missed attempt(s): freddy [email or web address]
--- NOTE | 2017-08-04 11:33 | EKG ---
Test Date: 2017-08-04 Test Time: 09:15:14 Electrical Logging Engineer: NICKIE MEASUREMENT RESULTS: Intervals: Rate: 49 [place]: 188 QRSD: 88 QT: 458 QTc: 413 [place]: P: 46 [place]: 188 QRS: 0 T: 9 INTERPRETIVE STATEMENTS: Sinus bradycardia with sinus arrhythmia Otherwise normal ECG Compared to ECG 07/18/2017 07:45:17 No significant changes Electronically Signed On 08-04-17 11:32:06 CDT by Chuy Hall
--- NOTE | 2017-08-04 11:44 | RAD REPORT ---
EXAM DESCRIPTION: RAD - Chest Pa And Lat (2 Views) - 08/04/2017 9:53 am CLINICAL HISTORY: Palpitations;Dyspnea Chest pain. COMPARISON: Chest Pa And Lat (2 Views) dated 07/18/2017; Chest Single View dated 07/17/2017; Chest Pa And Lat (2 Views) dated 04/09/2017; Chest Single View dated 06/19/2016 FINDINGS: The lungs are clear. The heart is mildly prominent in size. No displaced fractures. IMPRESSION: Mild cardiomegaly.
[2017-08-04 12:18] VITALS: TEMP 98.5
[2017-08-04 12:21] VITALS: BP 148/82; O2SAT 95
== END 2017-08-04 11:47 | disposition home or self-care (01) ==
LOC: ER 09:09
DX: R06.4 Hyperventilation (principal); F41.9 Anxiety disorder, unspecified; E11.9 Type 2 diabetes mellitus without complications; I10 Essential (primary) hypertension
CPT/HCPCS: 36415; 71046; 80048; 81003; 83880; 84484; 85025; 93005; 99284

== ENCOUNTER 2017-09-07 20:55 | Emergency (ER) | payer OTHER ==
[2017-09-07] MEDS ORDERED: HYDRALAZINE HCL 20 MG/ML VIAL ONE (21:33)
[2017-09-07 21:43] LABS: Absolute Lymphocytes (CBC) 2.1 K/uL (0.7-4.9); Absolute Monocytes 0.9 K/uL (0.1-1.3); Absolute Neutrophil 5.3 K/uL (1.8-8.0); Eosinophils % 1.4 % (0-4.4); Hematocrit 36.2 % (36.0-45.0); Lymphocytes % 24.5 % (15.3-44.8); MCH 27.4 pg (27.0-35.0); MCV 82.2 fL (80-100); MPV 9.3 fL (7.6-11.3); Monocytes % 10.9 % (3.3-12.3)
[2017-09-07 21:52] LABS: Potassium 3.9 mmol/L (3.5-5.1)
--- NOTE | 2017-09-07 22:23 | RAD REPORT ---
EXAM DESCRIPTION: Anh Single View09/07/2017 9:26 pm CLINICAL HISTORY: sob COMPARISON: none FINDINGS: The lungs appear clear of acute infiltrate. The heart is borderline enlarged IMPRESSION: No acute abnormalities displayed
--- NOTE | 2017-09-07 22:35 | ER ---
Nurse's Notes [facility] Name: Jazz Jones Age: 72 yrs Sex: Female : 1945 Arrival Date: 09/07/2017 Time: 20:56 Bed 7 Private MD: Diagnosis: Hypertensive heart disease without heart failure Presentation: 09/07 20:45 Presenting complaint: EMS states: HER DOCTOR HAS BEEN CHANGING HER MEDICINES AND HER bp BLOOD PRESSURE IS UP. 20:45 Transition of care: patient was not received from another setting of care. Onset of bp symptoms is unknown. Risk Assessment: Do you want to hurt yourself or someone else? Patient reports no desire to harm self or others. Initial Sepsis Screen: Does the patient meet any 2 criteria? No. Patient's initial sepsis screen is negative. Does the patient have a suspected source of infection? No. Patient's initial sepsis screen is negative. Care prior to arrival: IV initiated. 20 GA, in the right antecubital area, Glucose check: 140. 20:45 Method Of Arrival: EMS: [facility] bp 20:45 Acuity: ISABEL 3 bp Triage Assessment: 20:45 General: Appears in no apparent distress. comfortable, obese, Behavior is cooperative, bp appropriate for age, anxious. Pain: Denies pain. EENT: No deficits noted. Neuro: Level of Consciousness is awake, alert, obeys commands, Oriented to person, place, time, situation, Appropriate for age. Cardiovascular: No deficits noted. Respiratory: Airway is patent Respiratory effort is even, unlabored, Respiratory pattern is regular, symmetrical. GI: No signs and/or symptoms were reported involving the gastrointestinal system. : No signs and/or symptoms were reported regarding the genitourinary system. Derm: No deficits noted. Musculoskeletal: Circulation, motion, and sensation intact. Range of motion: intact in all extremities. Historical: - Allergies: 21:01 Lisinopril; bp - Home Meds: 21:01 Hydrochlorothiazide Oral [Active]; Lopressor Oral [Active]; bp - PMHx: 21:01 Anxiety; Diabetes - NIDDM; Hypertension; bp - Immunization history:: Adult Immunizations up to date. - Social history:: Smoking status: Patient/guardian denies using tobacco. - Ebola Screening: : Patient negative for fever greater than or equal to 101.5 degrees Fahrenheit, and additional compatible Ebola Virus Disease symptoms Patient denies exposure to infectious person Patient denies travel to an Ebola-affected area in the 21 days before illness onset No symptoms or risks identified at this time. Screenin:06 Abuse screen: Denies threats or abuse. Denies injuries from another. Nutritional bp screening: No deficits noted. Tuberculosis screening: No symptoms or risk factors identified. Fall Risk None identified. Assessment: 21:00 General: SEE TRIAGE NOTE. bp 22:00 Reassessment: S/S IMPROVING, NIDA AND HTN NOTED ON MONITOR. LABS IN PROCESS. bp 22:59 Reassessment: PT D/C HOME AMBULATORY, DX WITH HYPERTENSIVE HEART DISEASE. bp Vital Signs: 21:00 BP 210 / 68; Pulse 50; Resp 18; Temp 98.1; Pulse Ox 98% ; Weight 104.33 kg; bp 22:00 BP 176 / 64; Pulse 50; Resp 16; Pulse Ox 98% ; bp 23:00 BP 192 / 66; Pulse 46; Resp 14; Pulse Ox 99% ; bp ED Course: 20:45 Arm band placed on. bp 20:56 Patient arrived in ED. bp 21:00 Triage completed. bp 21:00 Jake Tillman MD is Attending Physician. gs 21:00 Patient has correct armband on for positive identification. Bed in low position. Call bp light in reach. Side rails up X2. Adult w/ patient. 21:00 Maintain EMS IV. Dressing intact. Good blood return noted. Site clean \T\ dry. Gauge \T\ bp site: 20 GAUGE R AC. 21:19 Paul Rodrigues, FILIPE is Primary Nurse. bp 21:24 X-ray completed. Portable x-ray completed in exam room. Patient tolerated procedure kp1 well. 21:26 XRAY Chest (1 view) In Process Unspecified. EDMS 23:00 No provider procedures requiring assistance completed. IV discontinued, intact, bp bleeding controlled, No redness/swelling at site. Pressure dressing applied. Administered Medications: 21:30 Drug: hydrALAZINE 10 mg Route: IV; Rate: calculated rate; Site: right antecubital; bp Outcome: 22:34 Discharge ordered by . gs 23:00 Discharged to home ambulatory, with family. bp 23:00 Condition: stable 23:00 Discharge instructions given to patient, Instructed on discharge instructions, follow up and referral plans. Demonstrated understanding of instructions, follow-up care. 23:01 Patient left the ED. bp Signatures: Dispatcher [employer] EDTammy Vasquez kp1 Jake Tillman MD MD gs Peltier, Brian, FILIPE RN bp Corrections: (The following items were deleted from the chart) 21:09 21:00 Inserted saline lock: 20 gauge in right antecubital area, using aseptic bp technique. bp
--- NOTE | 2017-09-07 22:35 | EDPHYS ---
Physician Documentation [facility] Name: Jazz Jones Age: 72 yrs Sex: Female : 1945 Arrival Date: 09/07/2017 Time: 20:56 Bed 7 Private MD: ED Physician Jake Tillman HPI: 09/07 22:31 This 72 yrs old Female presents to ER via EMS with complaints of Blood gs Pressure Problem. 22:31 The patient has elevated blood pressure and discovered this at home. Onset: The gs symptoms/episode began/occurred 2 week(s) ago. Modifying factors: The symptoms are aggravated by discontinuation of meds, The symptoms are alleviated by prescription meds. Associated signs and symptoms: Pertinent positives: dyspnea, occasionally. Severity of symptoms: At its worst the blood pressure was severe, in the emergency department the blood pressure is improved, mildly. The patient has experienced similar episodes in the past, a few times. The patient has been recently seen by a physician: a animal services officer. Historical: - Allergies: 21:01 Lisinopril; bp - Home Meds: 21:01 Hydrochlorothiazide Oral [Active]; Lopressor Oral [Active]; bp - PMHx: 21:01 Anxiety; Diabetes - NIDDM; Hypertension; bp - Immunization history:: Adult Immunizations up to date. - Social history:: Smoking status: Patient/guardian denies using tobacco. - Ebola Screening: : Patient negative for fever greater than or equal to 101.5 degrees Fahrenheit, and additional compatible Ebola Virus Disease symptoms Patient denies exposure to infectious person Patient denies travel to an Ebola-affected area in the 21 days before illness onset No symptoms or risks identified at this time. ROS: 22:31 All other systems are negative. gs Exam: 22:31 Head/Face: Normocephalic, atraumatic. Eyes: Pupils equal round and reactive to light, gs extra-ocular motions intact. Lids and lashes normal. Conjunctiva and sclera are non-icteric and not injected. Cornea within normal limits. Periorbital areas with no swelling, redness, or edema. ENT: Nares patent. No nasal discharge, no septal abnormalities noted. Tympanic membranes are normal and external auditory canals are clear. Oropharynx with no redness, swelling, or masses, exudates, or evidence of obstruction, uvula midline. Mucous membranes moist. Neck: Trachea midline, no thyromegaly or masses palpated, and no cervical lymphadenopathy. Supple, full range of motion without nuchal rigidity, or vertebral point tenderness. No Meningismus. Chest/axilla: Normal chest wall appearance and motion. Nontender with no deformity. No lesions are appreciated. Cardiovascular: Regular rate and rhythm with a normal S1 and S2. No gallops, murmurs, or rubs. Normal PMI, no JVD. No pulse deficits. Respiratory: Lungs have equal breath sounds bilaterally, clear to auscultation and percussion. No rales, rhonchi or wheezes noted. No increased work of breathing, no retractions or nasal flaring. Abdomen/GI: Soft, non-tender, with normal bowel sounds. No distension or tympany. No guarding or rebound. No evidence of tenderness throughout. Back: No spinal tenderness. No costovertebral tenderness. Full range of motion. Skin: Warm, dry with normal turgor. Normal color with no rashes, no lesions, and no evidence of cellulitis. MS/ Extremity: Pulses equal, no cyanosis. Neurovascular intact. Full, normal range of motion. Neuro: Awake and alert, GCS 15, oriented to person, place, time, and situation. Cranial nerves II-XII grossly intact. Motor strength 5/5 in all extremities. Sensory grossly intact. Cerebellar exam normal. Normal gait. 22:31 Constitutional: The patient appears alert, awake. 22:31 Cardiovascular: Rate: bradycardic. 22:31 ECG was reviewed by the Attending Physician. Vital Signs: 21:00 BP 210 / 68; Pulse 50; Resp 18; Temp 98.1; Pulse Ox 98% ; Weight 104.33 kg; bp 22:00 BP 176 / 64; Pulse 50; Resp 16; Pulse Ox 98% ; bp 23:00 BP 192 / 66; Pulse 46; Resp 14; Pulse Ox 99% ; bp MDM: 21:13 Patient medically screened. gs 22:31 Differential diagnosis: hypertensive crisis, Malignant HTN, cad. Data reviewed: vital gs signs, nurses notes. Counseling: I had a detailed discussion with the patient and/or guardian regarding: the need for outpatient follow up, a animal services officer. Response to treatment: the patient's symptoms have markedly improved after treatment, and as a result, I will discharge patient. 09/07 21:15 Order name: PT-INR; Complete Time: 22:10 09/07 21:15 Order name: Basic Metabolic Panel; Complete Time: 22:10 09/07 21:15 Order name: CBC with Diff; Complete Time: 22:10 09/07 21:15 Order name: Troponin (emerg Dept Use Only); Complete Time: 22:10 09/07 21:15 Order name: XRAY Chest (1 view); Complete Time: 22:30 09/07 22:33 Order name: Urine Dipstick--Ancillary (enter results) ms 09/07 21:15 Order name: O2 Sat Monitoring; Complete Time: 21:47 09/07 21:15 Order name: EKG; Complete Time: 21:16 09/07 21:15 Order name: Cardiac monitoring; Complete Time: 21:37 09/07 21:15 Order name: EKG - Nurse/Tech; Complete Time: 21:37 09/07 21:15 Order name: IV Saline Lock; Complete Time: 21:17 09/07 21:15 Order name: Labs collected and sent; Complete Time: 21:48 09/07 21:15 Order name: O2 Per Protocol; Complete Time: 21:17 EC:31 Rate is 42 beats/min. Rhythm is regular. SC interval is normal. QRS interval is normal. gs No Q waves. T waves are Normal. No ST changes noted. Clinical impression: Abnormal EKG without significant change. Interpreted by me. Administered Medications: 21:30 Drug: hydrALAZINE 10 mg Route: IV; Rate: calculated rate; Site: right antecubital; bp Disposition: 09/07/17 22:34 Discharged to Home. Impression: Hypertensive heart disease without heart failure. - Condition is Stable. - Discharge Instructions: Hypertension. - Medication Reconciliation Form, Thank You Letter, Antibiotic Education, Prescription Opioid Use form. - Follow up: Private Physician; When: 2 - 3 days; Reason: Re-evaluation by your physician. Signatures: Dispatcher [employer] Jake Galloway MD MD gs Peltier, Brian, RN RN bp Corrections: (The following items were deleted from the chart) 23:01 22:34 09/07/2017 22:34 Discharged to Home. Impression: Hypertensive heart disease bp without heart failure. Condition is Stable. Forms are Medication Reconciliation Form, Thank You Letter, Antibiotic Education, Prescription Opioid Use. Follow up: Private Physician; When: 2 - 3 days; Reason: Re-evaluation by your physician. gs
[2017-09-07 22:58] LABS: Urine Blood TRACE (NEG); Urine Glucose NEGATIVE (NEG); Urine Protein NEGATIVE (NEG); Urine Specific Gravity 1.015 (1.005-1.030)
[2017-09-07 23:05] VITALS: TEMP 98.1
[2017-09-07 23:07] VITALS: BP 192/66; O2SAT 99
--- NOTE | 2017-09-08 13:54 | EKG ---
Test Date: 2017-09-07 Test Time: 21:28:02 [employer] Network Technician: TREVOR MEASUREMENT RESULTS: Intervals: Rate: 42 [place]: 190 QRSD: 86 QT: 474 QTc: 395 [place]: P: 37 [place]: 190 QRS: 2 T: 17 INTERPRETIVE STATEMENTS: Marked sinus bradycardia with sinus arrhythmia Abnormal ECG Compared to ECG 08/04/2017 09:15:14 No significant changes Electronically Signed On 09-08-17 13:52:02 CDT by Chuy Hall
== END 2017-09-07 23:01 | disposition home or self-care (01) ==
LOC: ER 20:55
DX: I11.9 Hypertensive heart disease without heart failure (principal); E11.9 Type 2 diabetes mellitus without complications; Z79.4 Long term (current) use of insulin
CPT/HCPCS: 36415; 71045; 80048; 81003; 84484; 85025; 85610; 93005; 96374; 99283; J0360

== ENCOUNTER 2018-04-14 21:36 | Emergency (ER) | payer OTHER ==
[2011-11-11 16:59] VITALS: BP 179/57
[2018-04-14] MEDS ORDERED: TRAMADOL HCL 50 MG TAB ONE (22:31)
[2018-04-14] MEDS ORDERED: IBUPROFEN 400 MG TAB ONE (22:31)
--- NOTE | 2018-04-15 00:04 | EDPHYS ---
Physician Documentation [facility] Name: Jazz Jones Age: 72 yrs Sex: Female : 1945 Arrival Date: 04/14/2018 Time: 21:37 Bed 15 Private MD: Sami Diana F ED Physician Jake Tillman HPI: 04/14 22:15 This 72 yrs old Female presents to ER via EMS with complaints of right knee cp pain. 22:15 The patient presents with pain, that is acute. The complaints affect the right knee. cp 22:15 Onset: The symptoms/episode began/occurred suddenly, today, while driving. Modifying cp factors: the symptoms are aggravated by movement, weight bearing, bending knee. Associated signs and symptoms: Pertinent positives: swelling, Pertinent negatives calf tenderness, fever, warmth. 22:15 Context: the patient can fully bear weight, can ambulate using a cane. Treatment prior cp to arrival includes: no previous treatment. Severity of symptoms: in the emergency department the symptoms have improved, mildly. Historical: - Allergies: 21:33 Lisinopril; jb4 - Home Meds: 21:33 Hydrochlorothiazide Oral [Active]; Lopressor Oral [Active]; jb4 - PMHx: 21:33 Anxiety; Diabetes - NIDDM; Hypertension; jb4 - PSHx: 21:33 None; jb4 - Immunization history:: Adult Immunizations up to date, Pneumococcal vaccine is not up to date, Flu vaccine is not up to date. - Social history:: Smoking status: Patient/guardian denies using tobacco, Patient/guardian denies using alcohol. - Ebola Screening: : No symptoms or risks identified at this time. ROS: 22:20 Constitutional: Negative for body aches, chills, fever, poor PO intake. cp 22:20 Eyes: Negative for injury, pain, redness, and discharge. cp 22:20 ENT: Negative for drainage from ear(s), ear pain, sore throat, difficulty swallowing, difficulty handling secretions. 22:20 Cardiovascular: Negative for chest pain, palpitations. 22:20 Respiratory: Negative for cough, shortness of breath, wheezing. 22:20 Abdomen/GI: Negative for abdominal pain, nausea, vomiting, and diarrhea. 22:20 Back: Negative for pain at rest, pain with movement, radiated pain. 22:20 MS/extremity: Positive for pain, swelling, tenderness, of the right knee, Negative for injury or acute deformity, decreased range of motion, paresthesias. 22:20 Skin: Negative for cellulitis, rash. 22:20 Neuro: Negative for dizziness, numbness, weakness. 22:20 All other systems are negative. Exam: 22:28 Constitutional: The patient appears in no acute distress, alert, awake, cp non-diaphoretic, non-toxic, well developed, well nourished, obese. 22:28 Head/Face: Normocephalic, atraumatic. cp 22:28 Eyes: Periorbital structures: appear normal, Conjunctiva: normal, no exudate, no injection, Sclera: no appreciated abnormality, Lids and lashes: appear normal, bilaterally. 22:28 ENT: External ear(s): are unremarkable, Nose: is normal, Mouth: is normal, Posterior pharynx: Airway: no evidence of obstruction, patent. 22:28 Neck: ROM/movement: is normal, is supple, without pain, no range of motions limitations, no nuchal rigidity. 22:28 Chest/axilla: Inspection: normal. 22:28 Cardiovascular: Rate: normal. 22:28 Respiratory: the patient does not display signs of respiratory distress, Respirations: normal, no use of accessory muscles, no retractions, no splinting, no tachypnea. 22:28 Back: pain, is absent, ROM is normal. 22:28 Skin: cellulitis, is not appreciated, no rash present. 22:30 Musculoskeletal/extremity: ROM: limited passive range of motion due to pain, in the cp right knee, Perfusion: the extremity is normally perfused throughout, Sensation intact. Joints: All joints are normal except the right knee displays painful range of motion, tenderness, Weight bearing: can bear weight with assistance only, uses cane, DVT Exam: No signs of deep vein thrombosis. Vital Signs: 21:33 BP 193 / 67; Pulse 70; Resp 16; Temp 97.7(O); Pulse Ox 98% on R/A; Weight 113.4 kg (R); jb4 Height 5 ft. 0 in. (152.40 cm) (R); Pain 4/10; 22:15 BP 186 / 85; Pulse 76; Resp 17 S; Pulse Ox 97% on R/A; cc3 23:27 BP 167 / 89; Pulse 75; Resp 18 S; Pulse Ox 97% on R/A; cc3 04/15 00:25 BP 155 / 52; Pulse 77; Resp 18 S; Pulse Ox 96% on R/A; cc3 04/14 21:33 Body Mass Index 48.82 (113.40 kg, 152.40 cm) jb4 MDM: 04/14 21:50 Patient medically screened. cp 22:15 Differential diagnosis: dislocation, closed fracture, tendonitis. cp 04/15 00:00 Data reviewed: vital signs, nurses notes, radiologic studies, plain films. cp 00:00 Test interpretation: by ED physician or midlevel provider: plain radiologic studies. cp Counseling: I had a detailed discussion with the patient and/or guardian regarding: the historical points, exam findings, and any diagnostic results supporting the discharge/admit diagnosis, the presence of at least one elevated blood pressure reading (>120/80) during this emergency department visit, radiology results, the need for outpatient follow up, a orthopedic surgeon, to return to the emergency department if symptoms worsen or persist or if there are any questions or concerns that arise at home. Response to treatment: the patient's symptoms have markedly improved after treatment, and as a result, I will discharge patient. 04/14 22:14 Order name: XRAY Knee RIGHT 3 view cp Administered Medications: 04/14 22:29 Drug: Ibuprofen 800 mg {Note: given FILIPE Wasserman.} Route: PO; cc3 23:00 Follow up: Response: No adverse reaction; Pain is decreased cc3 22:29 Drug: traMADol 50 mg {Note: given by FILIPE Wasserman.} Route: PO; cc3 23:00 Follow up: Response: No adverse reaction; Pain is decreased cc3 Disposition: 04/15 03:45 Co-signature as Attending Physician, Jake Tillman MD. Disposition: 04/15/18 00:02 Discharged to Home. Impression: Pain in right knee. - Condition is Stable. - Discharge Instructions: Knee Pain. - Prescriptions for Mobic 7.5 mg Oral Tablet - take 1 tablet by ORAL route once daily take with food; 20 tablet. Ultracet 37.5- 325 mg Oral Tablet - take 1 tablet by ORAL route every 6 hours - for up to 5 days; do not exceed 8 tablets per day.; 20 tablet. - Medication Reconciliation Form, Thank You Letter, Antibiotic Education, Prescription Opioid Use form. - Follow up: Jesse Paulino MD; When: 2 - 3 days; Reason: Recheck today's complaints. - Problem is new. - Symptoms have improved. Signatures: Dispatcher [employer] EDMS Padilla Syed PA PA cp Moi Cano RN RN jb4 Jake Tillman MD MD gs Cordel, Charlene cc3 Corrections: (The following items were deleted from the chart) : 00:02 04/15/2018 00:02 Discharged to Home. Impression: Pain in right knee. Condition is cc3 Stable. Forms are Medication Reconciliation Form, Thank You Letter, Antibiotic Education, Prescription Opioid Use. Follow up: Jesse Paulino; When: 2 - 3 days; Reason: Recheck today's complaints. Problem is new. Symptoms have improved. cp 17:04/14 23:00 Data reviewed: vital signs, nurses notes, radiologic studies, plain films, cp 04/15 17:04/14 23:00 Test interpretation: by ED physician or midlevel provider: plain radiologic cp studies, cp 04/15 17:04/14 23:00 Counseling: I had a detailed discussion with the patient and/or guardian cp regarding: the historical points, exam findings, and any diagnostic results supporting the discharge/admit diagnosis, radiology results, the need for outpatient follow up, a orthopedic surgeon, to return to the emergency department if symptoms worsen or persist or if there are any questions or concerns that arise at home, cp 04/15 17:04/14 23:00 Response to treatment: the patient's symptoms have markedly improved after cp treatment, and as a result, I will discharge patient, cp
--- NOTE | 2018-04-15 00:04 | ER ---
Nurse's Notes [facility] Name: Jazz Jones Age: 72 yrs Sex: Female : 1945 Arrival Date: 04/14/2018 Time: 21:37 Bed 15 Private MD: Sami Diana F Diagnosis: Pain in right knee Presentation: 04/14 21:33 Presenting complaint: EMS states: Pt was driving her car a couple hours ago. Started jb4 having right knee pain when applying pressure to the knee. Reports that the pain radiates up the leg, and is 9/10. Was able to ambulate to the restroom with her walker. Reports that the right knee is swollen. 21:33 Transition of care: patient was not received from another setting of care. Onset of jb4 symptoms was April 14, 2018. Risk Assessment: Do you want to hurt yourself or someone else? Patient reports no desire to harm self or others. Initial Sepsis Screen: Does the patient meet any 2 criteria? No. Patient's initial sepsis screen is negative. Does the patient have a suspected source of infection? No. Patient's initial sepsis screen is negative. Care prior to arrival: None. 21:33 Method Of Arrival: EMS: [facility] jb4 21:33 Acuity: ISABEL 3 jb4 Triage Assessment: 22:30 General: Appears in no apparent distress. uncomfortable, Behavior is calm, cooperative, cc3 appropriate for age. Pain: Complains of pain in right knee. EENT: No signs and/or symptoms were reported regarding the EENT system. Neuro: Level of Consciousness is awake, alert, obeys commands, Oriented to person, place, time, situation, Appropriate for age. Cardiovascular: Denies chest pain, Patient's skin is warm and dry. Respiratory: Airway is patent Respiratory effort is even, unlabored, Respiratory pattern is regular, symmetrical. GI: Abdomen is round obese. : No signs and/or symptoms were reported regarding the genitourinary system. Derm: No signs and/or symptoms reported regarding the dermatologic system. Musculoskeletal: Circulation, motion, and sensation intact. Range of motion: limited in right knee. Historical: - Allergies: 21:33 Lisinopril; jb4 - Home Meds: 21:33 Hydrochlorothiazide Oral [Active]; Lopressor Oral [Active]; jb4 - PMHx: 21:33 Anxiety; Diabetes - NIDDM; Hypertension; jb4 - PSHx: 21:33 None; jb4 - Immunization history:: Adult Immunizations up to date, Pneumococcal vaccine is not up to date, Flu vaccine is not up to date. - Social history:: Smoking status: Patient/guardian denies using tobacco, Patient/guardian denies using alcohol. - Ebola Screening: : No symptoms or risks identified at this time. Screenin:30 Abuse screen: Denies threats or abuse. Denies injuries from another. Nutritional cc3 screening: No deficits noted. Tuberculosis screening: No symptoms or risk factors identified. Fall Risk Ambulatory Aid- None/Bed Rest/Nurse Assist (0 pts). Gait- Weak (10 pts.). Mental Status- Oriented to own ability (0 pts). Assessment: 22:30 General: see triage assessment. cc3 23:18 Reassessment: Patient appears in no apparent distress at this time. Patient and/or cc3 family updated on plan of care and expected duration. Pain level reassessed. Patient is alert, oriented x 3, equal unlabored respirations, skin warm/dry/pink. 04/15 00:30 Reassessment: Patient appears in no apparent distress at this time. Patient and/or cc3 family updated on plan of care and expected duration. Pain level reassessed. Patient is alert, oriented x 3, equal unlabored respirations, skin warm/dry/pink. PA Page discharged the patient home with prescription given. No IV cannula in situ. Patient left ER vitally stable by wheelchair escorted by her . Patient states feeling better. Patient states symptoms have improved. Vital Signs: 04/14 21:33 BP 193 / 67; Pulse 70; Resp 16; Temp 97.7(O); Pulse Ox 98% on R/A; Weight 113.4 kg (R); jb4 Height 5 ft. 0 in. (152.40 cm) (R); Pain 4/10; 22:15 BP 186 / 85; Pulse 76; Resp 17 S; Pulse Ox 97% on R/A; cc3 23:27 BP 167 / 89; Pulse 75; Resp 18 S; Pulse Ox 97% on R/A; cc3 04/15 00:25 BP 155 / 52; Pulse 77; Resp 18 S; Pulse Ox 96% on R/A; cc3 04/14 21:33 Body Mass Index 48.82 (113.40 kg, 152.40 cm) jb4 ED Course: 04/14 21:33 Arm band placed on left wrist. jb4 21:37 Patient arrived in ED. ds1 21:44 Moi Cano, RN is Primary Nurse. jb4 21:46 Triage completed. jb4 21:49 Padilla Syed PA is PHCP. cp 21:50 Jake Tillman MD is Attending Physician. cp 22:27 Bhavya Fisher is Primary Nurse. cc3 22:30 Patient has correct armband on for positive identification. Placed in gown. Bed in low cc3 position. Side rails up X 1. Pulse ox on. NIBP on. 04/15 00:01 Sami Diana MD is Private Physician. ds1 00:01 Jesse Paulino MD is Referral Physician. cp 00:30 No provider procedures requiring assistance completed. Patient did not have IV access cc3 during this emergency room visit. 02:43 XRAY Knee RIGHT 3 view In Process Unspecified. EDMS Administered Medications: 04/14 22:29 Drug: Ibuprofen 800 mg {Note: given FILIPE Wasserman.} Route: PO; cc3 23:00 Follow up: Response: No adverse reaction; Pain is decreased cc3 22:29 Drug: traMADol 50 mg {Note: given by FILIPE Wasserman.} Route: PO; cc3 23:00 Follow up: Response: No adverse reaction; Pain is decreased cc3 Outcome: 04/15 00:02 Discharge ordered by MD. cp 00:30 Discharged to home via wheelchair, with family. cc3 00:30 Condition: stable 00:30 Discharge instructions given to patient, family, Instructed on discharge instructions, follow up and referral plans. medication usage, Demonstrated understanding of instructions, follow-up care, medications, Prescriptions given X 2. 00:31 Patient left the ED. cc3 Signatures: Dispatcher [employer] EDNM Cici Vaz ds1 Padilla Syed PA PA cp Moi Cano, FILIPE DENT jbBhavya Resendiz cc3
--- NOTE | 2018-04-15 10:57 | RAD REPORT ---
EXAM DESCRIPTION: RAD - Knee Right 3 View - 04/14/2018 10:40 pm CLINICAL HISTORY: PAIN Pain and swelling COMPARISON: No comparisons FINDINGS: Prominent tricompartmental osteoarthritis. A moderate suprapatellar joint effusion. The erika cheryl are demineralized. An acute fracture is not identified. IMPRESSION: Moderate suprapatellar joint effusion.
== END 2018-04-15 00:31 | disposition home or self-care (01) ==
LOC: ER 21:36
DX: M25.561 Pain in right knee (principal); F41.9 Anxiety disorder, unspecified; E11.9 Type 2 diabetes mellitus without complications; I10 Essential (primary) hypertension
CPT/HCPCS: 99284

== ENCOUNTER 2019-02-03 08:21 | Observation (INO) | payer OTHER ==
[2019-02-03] MEDS ORDERED: NITROGLYCERIN 1 GM PKT TD ONE (08:43)
[2019-02-03] MEDS ORDERED: IPRATROPIUM BROM 0.5MG/2.5ML ONE (08:43)
[2019-02-03] MEDS ORDERED: LEVALBUTEROL 1.25 MG/3 ML NEB ONE (08:43)
[2019-02-03] MEDS ORDERED: MORPHINE 2 MG/ML SYR ONE (08:44)
[2019-02-03] MEDS ORDERED: FUROSEMIDE 40 MG/4 ML VIAL ONE (08:44)
[2019-02-03] MEDS ORDERED: ONDANSETRON 4 MG/2 ML VIAL ONE (08:44)
[2019-02-03 08:58] LABS: Absolute Lymphocytes (CBC) 1.4 K/uL (0.7-4.9); Basophils % 1.1 % (0-1.3); Hematocrit 37.8 % (36.0-45.0); Lymphocytes % 16.1 % (15.3-44.8); MPV 8.6 fL (7.6-11.3)
[2019-02-03 09:00] LABS: Protime INR 1.08
--- NOTE | 2019-02-03 09:11 | EDPHYS ---
Physician Documentation [facility] Name: Jazz Jones Age: 73 yrs Sex: Female : 1945 Arrival Date: 02/03/2019 Time: 08:24 Bed 4 Private MD: ED Physician Padilla Dominique HPI: 02/03 08:29 This 73 yrs old Female presents to ER via EMS with complaints of Breathing radhika Difficulty. 08:29 The patient has shortness of breath at rest, with light activity. Onset: The radhika symptoms/episode began/occurred 2 day(s) ago. Duration: The symptoms are continuous, and are steadily getting worse. The patient's shortness of breath is aggravated by exertion, supine position, is alleviated by rest, sitting up, application of supplemental oxygen. Associated signs and symptoms: The patient has no apparent associated signs or symptoms. Severity of symptoms: At their worst the symptoms were moderate in the emergency department the symptoms are unchanged. The patient has experienced similar episodes in the past, several times. Historical: - Allergies: 08:29 Lisinopril; sv - Home Meds: 08:29 hydrochlorothiazide 12.5 mg oral tab once daily [Active]; Norvasc 10 mg Oral tab 1 tab sv once daily [Active]; losartan potassium 50 mg BID [Active]; 08:32 aspirin 325 mg Oral tab 1 tab once daily [Active]; sv - PMHx: 08:29 Anxiety; Diabetes - NIDDM; Hypertension; sv 08:32 CHF; sv - PSHx: 08:29 None; vc - Immunization history:: Adult Immunizations up to date, Flu vaccine is up to date. - Social history:: Smoking status: Patient/guardian denies using tobacco. - Family history:: not pertinent. - Ebola Screening: : No symptoms or risks identified at this time. ROS: 08:29 Constitutional: Negative for fever, chills, and weight loss, Eyes: Negative for injury, radhika pain, redness, and discharge, ENT: Negative for injury, pain, and discharge, Neck: Negative for injury, pain, and swelling, Cardiovascular: Negative for chest pain, palpitations, and edema, Abdomen/GI: Negative for abdominal pain, nausea, vomiting, diarrhea, and constipation, Back: Negative for injury and pain, : Negative for injury, bleeding, discharge, and swelling, MS/Extremity: Negative for injury and deformity, Skin: Negative for injury, rash, and discoloration, Neuro: Negative for headache, weakness, numbness, tingling, and seizure, Psych: Negative for depression, anxiety, suicide ideation, homicidal ideation, and hallucinations, Allergy/Immunology: Negative for hives, rash, and allergies, Endocrine: Negative for neck swelling, polydipsia, polyuria, polyphagia, and marked weight changes, Hematologic/Lymphatic: Negative for swollen nodes, abnormal bleeding, and unusual bruising. 08:29 Respiratory: Positive for cough, dyspnea on exertion, orthopnea, shortness of breath. Exam: 08:31 Constitutional: This is a well developed, well nourished patient who is awake, alert, radhika and in no acute distress. Head/Face: Normocephalic, atraumatic. Eyes: Pupils equal round and reactive to light, extra-ocular motions intact. Lids and lashes normal. Conjunctiva and sclera are non-icteric and not injected. Cornea within normal limits. Periorbital areas with no swelling, redness, or edema. ENT: Nares patent. No nasal discharge, no septal abnormalities noted. Tympanic membranes are normal and external auditory canals are clear. Oropharynx with no redness, swelling, or masses, exudates, or evidence of obstruction, uvula midline. Mucous membranes moist. Neck: Trachea midline, no thyromegaly or masses palpated, and no cervical lymphadenopathy. Supple, full range of motion without nuchal rigidity, or vertebral point tenderness. No Meningismus. Chest/axilla: Normal chest wall appearance and motion. Nontender with no deformity. No lesions are appreciated. Cardiovascular: Regular rate and rhythm with a normal S1 and S2. No gallops, murmurs, or rubs. Normal PMI, no JVD. No pulse deficits. Respiratory: Lungs have equal breath sounds bilaterally, clear to auscultation and percussion. No rales, rhonchi or wheezes noted. No increased work of breathing, no retractions or nasal flaring. Abdomen/GI: Soft, non-tender, with normal bowel sounds. No distension or tympany. No guarding or rebound. No evidence of tenderness throughout. Back: No spinal tenderness. No costovertebral tenderness. Full range of motion. Skin: Warm, dry with normal turgor. Normal color with no rashes, no lesions, and no evidence of cellulitis. MS/ Extremity: Pulses equal, no cyanosis. Neurovascular intact. Full, normal range of motion. Neuro: Awake and alert, GCS 15, oriented to person, place, time, and situation. Cranial nerves II-XII grossly intact. Motor strength 5/5 in all extremities. Sensory grossly intact. Cerebellar exam normal. Normal gait. Psych: Awake, alert, with orientation to person, place and time. Behavior, mood, and affect are within normal limits. 08:31 Cardiovascular: Rate: normal, Rhythm: regular, Pulses: Pulses are 4+ in bilateral radial, brachial, femoral, popliteal, posterior tibial and and dorsalis pedis arteries.. Heart sounds: normal, normal S1and S2, no S3 or S4, no murmur, no rub, no gallop, Edema: is not appreciated, JVD: is noted bilaterally, to 3 cm. 10:24 Musculoskeletal/extremity: DVT Exam: No signs of deep vein thrombosis. no pain, no radhika swelling, no tenderness, negative Homans' sign noted on exam, no appreciated bluish discoloration, no erythema, no increased warmth. Vital Signs: 08:29 BP 180 / 70; Pulse 77; Resp 15; Temp 97.9; Pulse Ox 98% ; Weight 117.93 kg; Height 5 sv ft. 0 in. (152.40 cm); 09:27 BP 116 / 93; Pulse 81; Resp 20; Pulse Ox 100% ; sv 09:33 BP 137 / 62; Pulse 81; Resp 18; Pulse Ox 100% ; sv 10:47 BP 141 / 103; Pulse 92; Resp 20; Temp 97.7(TE); Pulse Ox 98% on R/A; Pain 0/10; vc 08:29 Body Mass Index 50.78 (117.93 kg, 152.40 cm) sv MDM: 08:25 Patient medically screened. [facility] 08:32 Data reviewed: vital signs, nurses notes, lab test result(s), EKG, radiologic studies, [facility] plain films. 02/03 08:28 Order name: Basic Metabolic Panel; Complete Time: 09:50 [facility] 02/03 08:28 Order name: CBC with Diff; Complete Time: 09:06 [facility] 02/03 08:28 Order name: LFT's; Complete Time: 09:50 [facility] 02/03 08:28 Order name: Magnesium; Complete Time: 09:50 [facility] 02/03 08:28 Order name: NT PRO-BNP; Complete Time: 09:50 [facility] 02/03 08:28 Order name: PT-INR; Complete Time: 09:06 [facility] 02/03 08:28 Order name: Troponin (emerg Dept Use Only); Complete Time: 09:50 [facility] 02/03 08:28 Order name: Lipase; Complete Time: 09:50 [facility] 02/03 09:15 Order name: Urine Dipstick--Ancillary (enter results) ms 02/03 09:35 Order name: CBC with Automated Diff EDMS 02/03 09:35 Order name: CBC with Automated Diff EDMS 02/03 09:35 Order name: Comprehensive Metabolic Panel EDLA 02/03 09:35 Order name: Comprehensive Metabolic Panel EDLA 02/03 09:38 Order name: D-Dimer EDLA 02/03 08:28 Order name: XRAY Chest (1 view) [facility] 02/03 08:28 Order name: EKG; Complete Time: 08:29 [facility] 02/03 09:35 Order name: CONS Pharmacy Consult EDLA 02/03 09:35 Order name: Heart Healthy EDLA 02/03 09:35 Order name: Chest Pa And Lat (2 Views) EDMS 02/03 09:35 Order name: Chest Pa And Lat (2 Views) EDLA 02/03 09:37 Order name: Chest For Pe Angio EDLA 02/03 09:39 Order name: ABG Arterial Blood Gas EDLA 02/03 10:12 Order name: CT Chest For PE Angio 02/03 08:28 Order name: Cardiac monitoring; Complete Time: 08:28 [facility] 02/03 08:28 Order name: EKG - Nurse/Tech; Complete Time: 08:35 [facility] 02/03 08:28 Order name: IV Saline Lock; Complete Time: 08:50 [facility] 02/03 08:28 Order name: Labs collected and sent; Complete Time: 08:50 [facility] 02/03 08:28 Order name: O2 Per Protocol; Complete Time: 08:28 [facility] 02/03 08:28 Order name: O2 Sat Monitoring; Complete Time: 08:28 [facility] 02/03 08:28 Order name: Urine Dipstick-Ancillary (obtain specimen); Complete Time: 09:15 [facility] Administered Medications: 08:45 Drug: Lasix 40 mg Route: IVP; Site: right antecubital; vc 09:38 Follow up: Response: No adverse reaction; Marked relief of symptoms; Blood pressure is vc lowered 08:45 Drug: Nitro-Bid Ointment 2 % 1 inches Route: Transdermal; Site: anterior chest wall; vc 09:38 Follow up: Response: No adverse reaction; Blood pressure is lowered vc 09:24 Drug: Xopenex 1.25 mg Route: Inhalation; vc 09:24 Drug: AtroVENT Aerosol 0.5 mg Route: Inhalation; vc 10:17 Drug: Potassium Effervescent Tablet 50 mEq Route: PO; vc 10:27 Follow up: Response: No adverse reaction vc Disposition: 02/03/19 09:09 Hospitalization ordered by Alli Mart for Inpatient Admission. Preliminary diagnosis are Dyspnea, Essential (primary) hypertension, Unspecified combined systolic (congestive) and diastolic (congestive) heart failure, Type 2 diabetes mellitus, Hypokalemia. - Bed requested for Telemetry/MedSurg (Inpatient). - Status is Inpatient Admission. vc - Condition is Stable. - Problem is new. - Symptoms have improved. UTI on Admission? No Signatures: Dispatcher [employer] EDEden Grimes RN RN sv Anderson, Corey, MD MD cha Villarreal, Maria ms Calcote, Vanessa, RN RN vc Corrections: (The following items were deleted from the chart) 09:52 09:09 Hospitalization Ordered by Alli Mart MD for Inpatient Admission. radhika Preliminary diagnosis is Dyspnea; Essential (primary) hypertension; Unspecified combined systolic (congestive) and diastolic (congestive) heart failure; Type 2 diabetes mellitus. Bed requested for Telemetry/MedSurg (Inpatient). Status is Inpatient Admission. Condition is Stable. Problem is new. Symptoms have improved. UTI on Admission? No. radhika 10:07 09:52 02/03/2019 09:09 Hospitalization Ordered by Alli Mart MD for Inpatient ms Admission. Preliminary diagnosis is Dyspnea; Essential (primary) hypertension; Unspecified combined systolic (congestive) and diastolic (congestive) heart failure; Type 2 diabetes mellitus; Hypokalemia. Bed requested for Telemetry/MedSurg (Inpatient). Status is Inpatient Admission. Condition is Stable. Problem is new. Symptoms have improved. UTI on Admission? No. radhika 10:55 10:07 02/03/2019 09:09 Hospitalization Ordered by Alli Mart MD for Inpatient vc Admission. Preliminary diagnosis is Dyspnea; Essential (primary) hypertension; Unspecified combined systolic (congestive) and diastolic (congestive) heart failure; Type 2 diabetes mellitus; Hypokalemia. Bed requested for Telemetry/MedSurg (Inpatient). Status is Inpatient Admission. Condition is Stable. Problem is new. Symptoms have improved. UTI on Admission? No. ms
--- NOTE | 2019-02-03 09:11 | ER ---
Nurse's Notes [facility] Name: Jazz Jones Age: 73 yrs Sex: Female : 1945 Arrival Date: 02/03/2019 Time: 08:24 Bed 4 Private MD: Diagnosis: Dyspnea;Essential (primary) hypertension;Unspecified combined systolic (congestive) and diastolic (congestive) heart failure;Type 2 diabetes mellitus;Hypokalemia Presentation: 02/03 08:17 Presenting complaint: EMS states: called out for dyspnea, then started c/o dull sv epigastric pain, denies n/v/d/bloody stool. BP 120s/80s. Transition of care: patient was not received from another setting of care. Onset of symptoms was February 03, 2019. Risk Assessment: Do you want to hurt yourself or someone else? Patient reports no desire to harm self or others. Initial Sepsis Screen: Does the patient meet any 2 criteria? No. Patient's initial sepsis screen is negative. Does the patient have a suspected source of infection? No. Patient's initial sepsis screen is negative. Care prior to arrival: EKG-SR. 08:17 Method Of Arrival: EMS: [facility] sv 08:17 Acuity: ISABEL 2 sv Triage Assessment: 09:17 General: Appears distressed, uncomfortable, Behavior is calm, cooperative. Pain: Denies vc pain. Respiratory: Reports shortness of breath at rest Onset: The symptoms/episode began/occurred yesterday, the patient has mild shortness of breath. Historical: - Allergies: 08:29 Lisinopril; sv - Home Meds: 08:29 hydrochlorothiazide 12.5 mg oral tab once daily [Active]; Norvasc 10 mg Oral tab 1 tab sv once daily [Active]; losartan potassium 50 mg BID [Active]; 08:32 aspirin 325 mg Oral tab 1 tab once daily [Active]; sv - PMHx: 08:29 Anxiety; Diabetes - NIDDM; Hypertension; sv 08:32 CHF; sv - PSHx: 08:29 None; vc - Immunization history:: Adult Immunizations up to date, Flu vaccine is up to date. - Social history:: Smoking status: Patient/guardian denies using tobacco. - Family history:: not pertinent. - Ebola Screening: : No symptoms or risks identified at this time. Screenin:28 Abuse screen: Denies threats or abuse. Nutritional screening: No deficits noted. vc Tuberculosis screening: No symptoms or risk factors identified. Fall Risk IV access (20 points). Total Fernandez Fall Scale indicates No Risk (0-24 pts). Assessment: 08:29 Cardiovascular: Rhythm is regular. Respiratory: Airway is patent Trachea midline vc Respiratory effort is even, unlabored. 08:29 Respiratory: Airway is patent Trachea midline Respiratory effort is even, unlabored, vc Breath sounds are clear bilaterally. Breath sounds are diminished bilaterally. 08:29 General: Appears in no apparent distress. uncomfortable, Behavior is cooperative, vc anxious. Pain: Denies pain. Neuro: Level of Consciousness is awake, alert, obeys commands, Oriented to person, place, time, Moves all extremities. GI: No signs and/or symptoms were reported involving the gastrointestinal system. : Urine is clear. EENT: No deficits noted. Derm: Skin is intact, is thin, Skin is. Musculoskeletal: Range of motion: intact in all extremities. 09:17 Reassessment: Dr Mart at the bedside. sv 09:42 Reassessment: Called outside lab and spoke with Oly who will add on a D-dimer to be sv added. 10:11 Reassessment: Called Dr Mart and informed him of the D-dimer result. He wants a CT sv r/o PE to be ordered. 10:25 Reassessment: Patient in CT. Attempted to call report to 4th floor. Nurse will call vc back. Vital Signs: 08:29 BP 180 / 70; Pulse 77; Resp 15; Temp 97.9; Pulse Ox 98% ; Weight 117.93 kg; Height 5 sv ft. 0 in. (152.40 cm); 09:27 BP 116 / 93; Pulse 81; Resp 20; Pulse Ox 100% ; sv 09:33 BP 137 / 62; Pulse 81; Resp 18; Pulse Ox 100% ; sv 10:47 BP 141 / 103; Pulse 92; Resp 20; Temp 97.7(TE); Pulse Ox 98% on R/A; Pain 0/10; vc 08:29 Body Mass Index 50.78 (117.93 kg, 152.40 cm) sv ED Course: 08:24 Patient arrived in ED. sv 08:24 Babita Martins RN is Primary Nurse. sv 08:25 Padilla Dominique MD is Attending Physician. radhika 08:26 Triage completed. sv 08:29 Arm band placed on. sv 08:30 Patient has correct armband on for positive identification. Placed in gown. Bed in low sv position. Call light in reach. Side rails up X2. soft mud molder on. Pulse ox on. NIBP on. Door closed. Warm blanket given. Head of bed elevated. 08:37 EKG done, by ED staff, reviewed by Padilla Dominique MD. em1 08:45 Initial lab(s) drawn, by ok, sent to lab. Urine collected: clean catch specimen, clear. vc Inserted saline lock: 20 gauge in right antecubital area, using aseptic technique. Blood collected. 09:07 Alli Mart MD is Hospitalizing Provider. radhika 09:18 Awaiting bed assignment. sv 09:25 XRAY Chest (1 view) In Process Unspecified. EDMS 10:[address] via stretcher. vc 10:39 CT completed. Patient tolerated procedure well. Patient moved back from CT. mw3 10:40 Report given to FILIPE Echevarria. vc 10:41 No provider procedures requiring assistance completed. Patient admitted, IV remains in vc place. Administered Medications: 08:45 Drug: Lasix 40 mg Route: IVP; Site: right antecubital; vc 09:38 Follow up: Response: No adverse reaction; Marked relief of symptoms; Blood pressure is vc lowered 08:45 Drug: Nitro-Bid Ointment 2 % 1 inches Route: Transdermal; Site: anterior chest wall; vc 09:38 Follow up: Response: No adverse reaction; Blood pressure is lowered vc 09:24 Drug: Xopenex 1.25 mg Route: Inhalation; vc 09:24 Drug: AtroVENT Aerosol 0.5 mg Route: Inhalation; vc 10:17 Drug: Potassium Effervescent Tablet 50 mEq Route: PO; vc 10:27 Follow up: Response: No adverse reaction vc Outcome: 09:09 Decision to Hospitalize by Provider. radhika 10:41 Condition: good vc 10:41 Discharge instructions given to patient, Instructed on the need for admit, Demonstrated understanding of instructions. 10:54 Admitted to Tele accompanied by tech, via stretcher, with chart, Report called to vc Swathi, RN 10:55 Patient left the ED. vc Signatures: Dispatcher [employer] Eden Degroot RN RN Padilla Dominique MD MD cha Martinez, Eric em1 Julianna Clancy mw3 Babita Martins RN RN vc Corrections: (The following items were deleted from the chart) 08:30 08:29 Pulse 77bpm; Resp 15bpm; Pulse Ox 98%; Temp 97.9F; 117.93 kg; Height 5 ft. 0 in.; sv BMI: 50.7; sv 08:31 08:17 Acuity: ISABEL 3 sv sv 09:29 08:29 Respiratory: Airway is patent Respiratory effort is even, unlabored, vc vc 09: 08:29 Respiratory: Breath sounds are diminished bilaterally. vc vc
[2019-02-03 09:21] LABS: ALT/SGPT 24 U/L (12-78); AST/SGOT 20 U/L (15-37); Albumin 3.7 g/dL (3.4-5.0); Alkaline Phosphatase 106 U/L (45-117); BUN Blood Urea Nitrogen 17 mg/dL (7-18); Bicarbonate 33 mmol/L (21-32); Bilirubin Direct 0.2 mg/dL (0-0.2); Bilirubin Total 0.5 mg/dL (0.2-1.0); Glucose Level 105 mg/dL (74-106); Lipase 82 U/L (73-393); Magnesium 2.5 mg/dL (1.8-2.4); NT PRO-BNP 156 pg/mL (<125); Potassium 3.3 mmol/L (3.5-5.1); Protein, Total 8.9 g/dL (6.4-8.2); Sodium Level 140 mmol/L (136-145); Troponin (Emerg Dept Use Only) < 0.02 ng/mL (0.0-0.045)
[2019-02-03 09:54] LABS: Urine Blood TRACE (NEG); Urine Glucose NEGATIVE (NEG); Urine Protein NEGATIVE (NEG); Urine Specific Gravity 1.015 (1.005-1.030)
[2019-02-03] MEDS ORDERED: POTASSIUM 25 MEQ EFFERV TAB ONE (10:13)
--- NOTE | 2019-02-03 10:21 | RAD REPORT ---
EXAM DESCRIPTION: RAD - Chest Single View - 02/03/2019 9:24 am CLINICAL HISTORY: DYSPNEA Chest pain. COMPARISON: Chest Single View dated 09/07/2017; Chest Pa And Lat (2 Views) dated 08/04/2017; Chest Pa And Lat (2 Views) dated 07/18/2017; Chest Single View dated 07/17/2017 FINDINGS: Portable technique limits examination quality. The lungs are underinflated which results in vascular crowding. No focal infiltrate suspected. The he art is normal in size. No displaced fractures. IMPRESSION: No acute intrathoracic process suspected.
[2019-02-03 10:43] LABS: Arterial Blood Carboxyhemoglob 0.9 % (0-1.5); Blood Gas Oxyhemoglobin 93.3 % (94-97); Blood O2 Saturation 95.1 % (92-98.5)
[2019-02-03] MEDS ORDERED: ALBUTEROL 2.5 MG/3 ML NEB SOL NEB PRN (11:01)
[2019-02-03] MEDS: FORMOTEROL FUMARATE 20 MCG/2 ML VIAL.NEB NEB SCH ×2 (11:01→20:00)
--- NOTE | 2019-02-03 11:07 | P.HP ---
Certification for Inpatient Patient admitted to: Observation With expected LOS: <2 Midnights Practitioner: I am a practitioner with admitting privileges, knowledge of patient current condition, hospital course, and medical plan of care. Services: Services provided to patient in accordance with Admission requirements found in Title 42 Section 412.3 of the Code of Federal Regulations Patient History Date of Service: 02/03/19 Reason for admission: Shortness of breath History of Present Illness: Patient is a pleasant 73-year-old lady poor historian admitted with acute onset of shortness of breath she has had dyspnea on exertion for quite some time diagnosis of congestive heart failure complaining of some orthopnea a lower extremity edema compliant with medications denies any fever chills chest pain admitted from the emergency room takes hydrochlorothiazide at home seen by a medical records specialist Allergies lisinopril Allergy (Unverified 09/07/17 23:04) Unknown Home Medications: hydroCHLOROthiazide [Hydrochlorothiazide*] 12.5 mg PO DAILY 06/19/16 Aspirin Tab [Sissy Aspirin*] 325 mg PO DAILY #90 tab 07/18/17 Atorvastatin Calcium [Lipitor] 40 mg PO BEDTIME #30 tab 07/18/17 Losartan Potassium 50 mg PO DAILY #30 tablet 07/18/17 Metoprolol Tartrate [Lopressor*] 50 mg PO BID #60 tab 07/18/17 - Past Medical/Surgical History Diabetic: No -: HTN -: Anxiety -: HTN -: Anxiety Psychosocial/ Personal History: Patient is - Social History Smoking Status: Never smoker Alcohol use: No CD- Drugs: No Caffeine use: Yes Review of Systems 10-point ROS is otherwise unremarkable Respiratory: Shortness of Breath Physical Examination - Vital Signs Temperature: 97.9 F Blood Pressure: 180/70 Pulse: 77 Respirations: 15 - Physical Exam General: Alert, In no apparent distress, Oriented x3 HEENT: Atraumatic Neck: Supple Respiratory: Clear to auscultation bilaterally Cardiovascular: No edema, Regular rate/rhythm, Normal S1 S2 Gastrointestinal: Normal bowel sounds, Soft and benign Musculoskeletal: No clubbing, No swelling - Studies Laboratory Data (last 24 hrs) 02/03/19 08:40: PT 12.7 H, INR 1.08 02/03/19 08:40: WBC 8.8, Hgb 12.6, Hct 37.8, Plt Count 267 12/14/19 08:40: Sodium 140, Potassium 3.3 L, BUN 17, Creatinine 0.85, Glucose 105, Magnesium 2.5 H, Total Bilirubin 0.5, AST 20, ALT 24, Alkaline Phosphatase 106, Lipase 82 Assessment and Plan - Problems (Diagnosis) (1) Shortness of breath Current Visit: Yes Status: Acute Plan: Patient is 73 years of age admitted with acute on chronic shortness of breath doubt pulmonary embolism over her D-dimer is elevated CT angio report is pending is no evidence of pleural effusions interstitial disease BNP is also normal patient has mild metabolic alkalosis mild hypokalemia CBCs normal trial of bronchodilator therapy she may have hypokalemic metabolic alkalosis patient' s blood pressure is elevated changed to spironolactone replace potassium is probably has underlying diastolic dysfunction - Advance Directives Does patient have a Living Will: No Does patient have a Durable POA for Healthcare: Yes
--- NOTE | 2019-02-03 11:08 | RAD REPORT ---
EXAM DESCRIPTION: CT - Chest For Pe Angio - 02/03/2019 10:39 am CLINICAL HISTORY: Chest pain. DYSPNEA COMPARISON: CT ABD PELVIS W CONTRAST dated 08/14/2012No comparisons TECHNIQUE: CT angiogram of the pulmonary arteries was performed with MIP. All CT scans are performed using dose optimization technique as appropriate and may include automated exposure control or mA/KV adjustment according to patient size. FINDINGS: No evidence of pulmonary thromboembolism. No acute aortic finding suspected. Mild interstitial pulmonary edema is seen. Trace pleural fluid bilaterally. No pericardial fluid. No concerning bony finding. Small hiatal hernia. IMPRESSION: No evidence of pulmonary thromboembolism. Mild interstitial pulmonary edema noted.
[2019-02-03] MEDS: POTASSIUM 25 MEQ EFFERV TAB PO SCH ×2 (12:38→20:00)
[2019-02-03] MEDS ORDERED: PNEUMOCOCCAL VACCINE 0.5 ML IMVAC ONE (16:00)
[2019-02-03] MEDS: METOPROLOL TAR 50 MG TAB PO SCH (18:00)
--- NOTE | 2019-02-03 18:48 | EKG ---
Test Date: 2019-02-03 Test Time: 08:33:17 Entry Level Sales Associate: BRIA MEASUREMENT RESULTS: Intervals: Rate: 76 WY: 202 QRSD: 78 QT: 396 QTc: 445 [place]: P: 59 WY: 202 QRS: 22 T: 58 INTERPRETIVE STATEMENTS: Normal sinus rhythm Nonspecific ST abnormality Abnormal ECG Compared to ECG 09/07/2017 21:28:02 ST (T wave) deviation now present Sinus bradycardia no longer present Sinus arrhythmia no longer present Electronically Signed On 02-03-19 18:47:07 GAS BLENDER by Chuy Hall
[2019-02-03] MEDS ORDERED: SPIRONOLACTONE 25 MG TABLET PO SCH (21:00)
[2019-02-03 22:27] VITALS: O2SAT 95
[2019-02-04 04:34] LABS: Basophils % 0.4 % (0-1.3); Hematocrit 32.2 % (36.0-45.0); Lymphocytes % 23.8 % (15.3-44.8); MPV 8.7 fL (7.6-11.3); RBC Red Blood Cell Count 3.97 M/uL (3.86-4.86)
[2019-02-04 04:44] LABS: Bilirubin Total 0.5 mg/dL (0.2-1.0); Potassium 3.6 mmol/L (3.5-5.1)
[2019-02-04] MEDS: METOPROLOL TAR 50 MG TAB PO SCH (05:10)
[2019-02-04 05:37] VITALS: BMI 51.4
[2019-02-04] MEDS: FORMOTEROL FUMARATE 20 MCG/2 ML VIAL.NEB NEB SCH (08:50)
[2019-02-04] MEDS: POTASSIUM 25 MEQ EFFERV TAB PO SCH (08:52)
[2019-02-04] MEDS ORDERED: LOSARTAN POTASSIUM 50 MG TABLET PO SCH (09:00)
--- NOTE | 2019-02-04 10:16 | RAD REPORT ---
EXAM DESCRIPTION: RAD - Chest Pa And Lat (2 Views) - 02/04/2019 9:45 am CLINICAL HISTORY: SOB COMPARISON: February 03 TECHNIQUE: PA and lateral views of the chest were obtained. FINDINGS: The lungs are clear. Lung volumes are low. Lateral view has significant motion degradatio n. Interstitial pattern is not substantially different. New or progressive finding is not suspected. Heart size is normal and central vasculature is within normal limits. No pleural effusion or pneumot horax seen. No acute bony finding noted. No aortic abnormality. IMPRESSION: No acute cardiopulmonary process. No new or progressive finding.
--- NOTE | 2019-02-04 11:23 | P.DS ---
Admission Date: 02/03/19 Discharge Date: 02/04/19 Disposition: ROUTINE DISCHARGE Discharge Condition: GOOD Reason for Admission: Shortness of breath - Problems (1) Shortness of breath Current Visit: Yes Status: Acute Brief History of Present Illness: Patient is a pleasant 73-year-old lady poor historian admitted with acute onset of shortness of breath she has had dyspnea on exertion for quite some time diagnosis of congestive heart failure complaining of some orthopnea a lower extremity edema compliant with medications denies any fever chills chest pain admitted from the emergency room takes hydrochlorothiazide at home seen by a furnace installer helper Hospital Course: Patient is 73 years of age admitted with worsening shortness of breath, possible underlying diastolic dysfunction heart failure she did much better on spironolactone Esteban by Cardiology that time of discharge patient had improved significantly no orthopnea was ambulating O new complaints vital signs are stable labs all reviewed hypokalemia corrected hydrochlorothiazide discontinued the patient's spironolactone Vital Signs/Physical Exam: Temp Pulse Resp BP Pulse Ox 97.9 F 77 15 180/70 H 95 02/04/19 11:21 02/04/19 11:21 02/04/19 11:21 02/04/19 11:21 02/04/19 08:00 Laboratory Data at Discharge: WBC 8.4 K/uL (4.3-10.9) 02/04/19 04:08 Hgb 11.1 g/dL (12.0-15.0) L 02/04/19 04:08 Hct 32.2 % (36.0-45.0) L 02/04/19 04:08 Plt Count 258 K/uL (152-406) 02/04/19 04:08 PT 12.7 SECONDS (9.5-12.5) H 02/03/19 08:40 INR 1.08 02/03/19 08:40 Sodium 136 mmol/L (136-145) 02/04/19 04:08 Potassium 3.6 mmol/L (3.5-5.1) 02/04/19 04:08 BUN 24 mg/dL (7-18) H 02/04/19 04:08 Creatinine 1.06 mg/dL (0.55-1.3) 02/04/19 04:08 Glucose 110 mg/dL (74-106) H 02/04/19 04:08 Magnesium 2.5 mg/dL (1.8-2.4) H 02/03/19 08:40 Total Bilirubin 0.5 mg/dL (0.2-1.0) 02/04/19 04:08 AST 17 U/L (15-37) 02/04/19 04:08 ALT 19 U/L (12-78) 02/04/19 04:08 Alkaline Phosphatase 89 U/L (45-117) 02/04/19 04:08 Lipase 82 U/L (73-393) 02/03/19 08:40 Home Medications: Aspirin Tab [Sissy Aspirin*] 325 mg PO DAILY #90 tab 07/18/17 Amlodipine Besylate 10 mg PO DAILY 02/03/19 Losartan Potassium 50 mg PO BID 02/03/19 Spironolactone [Aldactone*] 25 mg PO BID #60 tab 02/04/19 New Medications: Spironolactone [Aldactone*] 25 mg PO BID #60 tab Patient Discharge Instructions: DC hydrochlorothiazide and change to spironolactone Diet: Low sodium Activity: Ad remi
[2019-02-04 12:05] VITALS: BP 149/67; TEMP 97.5
--- NOTE | 2019-02-04 20:08 | CON ---
Date of Consultation: 02/03/2019 Reason For Consultation: Shortness of breath. History Of Present Illness: Ms. Jones is a 73-year-old woman. She is known to me from office visits in the past. She has a history of diabetes, congestive heart failure, hypertension, anxiety. Has h ad atrial fibrillation in the past that has resolved almost 2 years ago. She came in with an episode of shortness of breath that resolved spontaneously. She herself thinks as anxiety. She denied any chest pain, nausea, vomiting, diaphoresis, PND, orthopnea, pedal edema, palpitation, or syncope. She has already ruled out for an [place]. She had an elevated D-dimer of [address] angiogram for pulmonary embolus. She had an EKG that was normal. Troponin was normal. Her potassium was 3.3. Past Medical History: As stated above. Allergies: TO LISINOPRIL AND METOPROLOL. Medications: At home includes: 1.Hydrochlorothiazide. 2.Losartan. 3.Norvasc. 4.Aspirin. Review of Systems: Negative. Social History: Negative. Family History: Negative. Physical Examination: General: She weighed 260 pounds. She was in sinus rhythm. No acute distress. Vital Signs: Stable, afebrile. HEENT: Negative. Neck: Supple, with no bruit. Chest: Clear. Cardiac: Regular rhythm and rate. No murmurs, gallops, or rubs. Abdomen: Benign. Extremities: Revealed no clubbing, cyanosis, or edema. Diagnostic Data: As stated earlier. Impression And Plan: Episode of shortness of breath that has resolved. She did get some diuresis. This could have been an acute exacerbation of chronic diastolic congestive heart failure. Certainly could be an anxiety attack as well. Nevertheless, I suggested that she take some potassium supplemen ts at home in the form of diet. She has a followup with me in the office in February. I will check w hen the last time we did any cardiac workup on her in the past. I will continue her home medication otherwise and I am comfortable with her going home whenever it is okay with Dr. Mart. Her diabet es is fairly well controlled. Her hypertension is well controlled and her atrial fibrillation has re solved. ALICIA/GARRISON Voice ID: [id number] Report ID: [id number]
== END 2019-02-04 12:40 | disposition home or self-care (01) ==
LOC: ER 08:21 → SUPCPDRO 08:21 → ERHOLD 09:34 → 4TH 11:06
PROVIDERS: ADMIT Internal Medicine Sleep Medicine; ATTEND Internal Medicine Sleep Medicine
DX: R06.02 Shortness of breath (principal); I10 Essential (primary) hypertension; F41.9 Anxiety disorder, unspecified; Z23 Encounter for immunization
CPT/HCPCS: 93005; 85025 ×2; 80048; 36415 ×2; 83735; 85610; 85379; 80076; 81003; 84484; 83690; 80053; 83880; 71275; 71045; 71046; 90471; 90670; 82805; 94760 ×2; 96374; 99285; Q9967; J1940; G0378 ×3; J2270; J2405

== ENCOUNTER 2019-10-05 20:45 | Emergency (ER) | payer OTHER ==
[2019-10-05 22:26] LABS: Absolute Lymphocytes (CBC) 1.6 K/uL (0.7-4.9); Basophils % 0.4 % (0-1.3); Lymphocytes % 18.7 % (15.3-44.8); MPV 8.9 fL (7.6-11.3); RBC Red Blood Cell Count 4.38 M/uL (3.86-4.86)
--- NOTE | 2019-10-05 22:30 | RAD REPORT ---
EXAM DESCRIPTION: RAD - Chest Single View - 10/05/2019 10:21 pm CLINICAL HISTORY: hypertension Chest pain. COMPARISON: Chest Pa And Lat (2 Views) dated 02/04/2019; Chest Single View dated 02/03/2019; Chest S severino View dated 09/07/2017; Chest Pa And Lat (2 Views) dated 08/04/2017 FINDINGS: Portable technique limits examination quality. The lungs are grossly clear. The heart is upper limit of normal in size. No displaced fractures. IMPRESSION: No acute intrathoracic process suspected.
[2019-10-05 22:31] LABS: Potassium 3.7 mmol/L (3.5-5.1)
--- NOTE | 2019-10-05 22:42 | EDPHYS ---
Physician Documentation [facility] Name: Jazz Jones Age: 74 yrs Sex: Female : 1945 Arrival Date: 10/05/2019 Time: 20:46 Bed 6 Private MD: ED Physician Bradford Cerrato HPI: 10/04 21:49 This 74 yrs old Female presents to ER via EMS with complaints of High Blood pkl Pressure. 21:49 The patient has elevated blood pressure and discovered this at home, with a home pkl device. Onset: The symptoms/episode began/occurred just prior to arrival. Associated signs and symptoms: The patient has no apparent associated signs or symptoms. Severity of symptoms: At its worst the blood pressure was 200 mm Hg, in the emergency department the blood pressure is improved, 159 mm Hg. Historical: - Allergies: 20:54 Lisinopril; jd3 - Home Meds: 20:54 losartan potassium 50 mg BID [Active]; amlodipine oral [Active]; atorvastatin oral oral jd3 [Active]; Furosemide Oral [Active]; Metoprolol Tartrate Oral [Active]; - PMHx: 20:54 Anxiety; CHF; Diabetes - NIDDM; Hypertension; jd3 - PSHx: 20:54 None; jd3 - Immunization history:: Adult Immunizations up to date. - Social history:: Smoking status: Patient denies any tobacco usage or history of. ROS: 21:49 Eyes: Negative for injury, pain, redness, and discharge, ENT: Negative for injury, pkl pain, and discharge, Neck: Negative for injury, pain, and swelling, Cardiovascular: Negative for chest pain, palpitations, and edema, Respiratory: Negative for shortness of breath, cough, wheezing, and pleuritic chest pain, Abdomen/GI: Negative for abdominal pain, nausea, vomiting, diarrhea, and constipation, Back: Negative for injury and pain, : Negative for injury, bleeding, discharge, and swelling, MS/Extremity: Negative for injury and deformity, Skin: Negative for injury, rash, and discoloration, Neuro: Negative for headache, weakness, numbness, tingling, and seizure. Exam: 21:49 Head/Face: Normocephalic, atraumatic. Eyes: Pupils equal round and reactive to light, pkl extra-ocular motions intact. Lids and lashes normal. Conjunctiva and sclera are non-icteric and not injected. Cornea within normal limits. Periorbital areas with no swelling, redness, or edema. ENT: Nares patent. No nasal discharge, no septal abnormalities noted. Tympanic membranes are normal and external auditory canals are clear. Oropharynx with no redness, swelling, or masses, exudates, or evidence of obstruction, uvula midline. Mucous membranes moist. Neck: Trachea midline, no thyromegaly or masses palpated, and no cervical lymphadenopathy. Supple, full range of motion without nuchal rigidity, or vertebral point tenderness. No Meningismus. Chest/axilla: Normal chest wall appearance and motion. Nontender with no deformity. No lesions are appreciated. Cardiovascular: Regular rate and rhythm with a normal S1 and S2. No gallops, murmurs, or rubs. Normal PMI, no JVD. No pulse deficits. Respiratory: Lungs have equal breath sounds bilaterally, clear to auscultation and percussion. No rales, rhonchi or wheezes noted. No increased work of breathing, no retractions or nasal flaring. Abdomen/GI: Soft, non-tender, with normal bowel sounds. No distension or tympany. No guarding or rebound. No evidence of tenderness throughout. Back: No spinal tenderness. No costovertebral tenderness. Full range of motion. Skin: Warm, dry with normal turgor. Normal color with no rashes, no lesions, and no evidence of cellulitis. MS/ Extremity: Pulses equal, no cyanosis. Neurovascular intact. Full, normal range of motion. Neuro: Awake and alert, GCS 15, oriented to person, place, time, and situation. Cranial nerves II-XII grossly intact. Motor strength 5/5 in all extremities. Sensory grossly intact. Cerebellar exam normal. Normal gait. Vital Signs: 20:50 BP 159 / 55; Pulse 82; Resp 20 S; Temp 97.0(O); Pulse Ox 99% on R/A; Weight 123.83 kg wh (R); Height 5 ft. 0 in. (152.40 cm) (R); Pain 0/10; 22:15 BP 158 / 55; Pulse 69; Resp 18; Pulse Ox 98% on R/A; wh 22:45 BP 155 / 58; Pulse 79; Resp 18; Pulse Ox 98% on R/A; wh 20:50 Body Mass Index 53.32 (123.83 kg, 152.40 cm) MDM: 21:17 Patient medically screened. pkl 22:38 Data reviewed: vital signs, nurses notes, lab test result(s), radiologic studies, plain pkl films. ED course: Patient feeling better. Discussed lab. and X' rays results with patient. Advised to follow up with PCP next week. Patient understood instructions. 10/04 21:49 Order name: CBC with Diff; Complete Time: 22:34 pkl 10/04 21:49 Order name: Chem 7; Complete Time: 22:32 pkl 10/04 21:49 Order name: EKG; Complete Time: 21:49 pkl 10/04 21:49 Order name: XRAY CXR (1 view); Complete Time: 22:32 pkl Administered Medications: No medications were administered Disposition: 10/05/19 22:41 Discharged to Home. Impression: Hypertension. - Condition is Stable. - Medication Reconciliation Form, Thank You Letter, Antibiotic Education, Prescription Opioid Use form. - Follow up: Private Physician; When: 2 - 3 days; Reason: Re-evaluation by your physician. - Problem is new. - Symptoms have improved. Signatures: Dispatcher [employer] EDMS Bradford Cerrato MD MD pkl Habalo, Winsy wh Davies, Jonathon RN RN jd3 Corrections: (The following items were deleted from the chart) 22:57 22:41 10/05/2019 22:41 Discharged to Home. Impression: Hypertension. Condition is Stable. Forms are Medication Reconciliation Form, Thank You Letter, Antibiotic Education, Prescription Opioid Use. Follow up: Private Physician; When: 2 - 3 days; Reason: Re-evaluation by your physician. Problem is new. Symptoms have improved. pkl
--- NOTE | 2019-10-05 22:42 | ER ---
Nurse's Notes [facility] Name: Jazz Jones Age: 74 yrs Sex: Female : 1945 Arrival Date: 10/05/2019 Time: 20:46 Bed 6 Private MD: Diagnosis: Hypertension Presentation: 10/04 20:49 Chief complaint: EMS states: "the pt took her blood pressure at her house and her jd3 systolic was constantly over 200. our blood pressure readings were also very high. this made her very anxious. denies pain, but she is worried about her high blood pressure.". Coronavirus screen: At this time, the client does not indicate any symptoms associated with coronavirus-19. Ebola Screen: Patient negative for fever greater than or equal to 101.5 degrees Fahrenheit, and additional compatible Ebola Virus Disease symptoms. Initial Sepsis Screen: Does the patient meet any 2 criteria? No. Patient's initial sepsis screen is negative. Does the patient have a suspected source of infection? No. Patient's initial sepsis screen is negative. Risk Assessment: Do you want to hurt yourself or someone else? Patient reports no desire to harm self or others. Onset of symptoms was October 05, 2019. 20:49 Method Of Arrival: EMS: [facility] jd3 20:49 Acuity: ISABEL 3 jd3 Historical: - Allergies: 20:54 Lisinopril; jd3 - Home Meds: 20:54 losartan potassium 50 mg BID [Active]; amlodipine oral [Active]; atorvastatin oral oral jd3 [Active]; Furosemide Oral [Active]; Metoprolol Tartrate Oral [Active]; - PMHx: 20:54 Anxiety; CHF; Diabetes - NIDDM; Hypertension; jd3 - PSHx: 20:54 None; jd3 - Immunization history:: Adult Immunizations up to date. - Social history:: Smoking status: Patient denies any tobacco usage or history of. Screenin:10 Abuse screen: Denies threats or abuse. Denies injuries from another. Nutritional wh screening: No deficits noted. Tuberculosis screening: No symptoms or risk factors identified. Fall Risk None identified. Assessment: 21:09 General: Appears in no apparent distress. Behavior is calm, cooperative, appropriate wh for age. Pain: Denies pain. Neuro: Level of Consciousness is awake, alert, obeys commands, Oriented to person, place, time, situation, Appropriate for age. Cardiovascular: Heart tones S1 S2 Edema is 2+ to left foot and right foot pitting to left foot and right foot Rhythm is regular. Respiratory: Airway is patent Respiratory effort is even, unlabored, Respiratory pattern is regular, symmetrical, Breath sounds are clear bilaterally. GI: Abdomen is flat, non-distended. : No signs and/or symptoms were reported regarding the genitourinary system. EENT: No signs and/or symptoms were reported regarding the EENT system. Derm: Skin is intact, is healthy with good turgor, Skin is pink, warm \\T\\ dry. normal. Musculoskeletal: Circulation, motion, and sensation intact. 22:20 Reassessment: Patient appears in no apparent distress at this time. No changes from previously documented assessment. Patient and/or family updated on plan of care and expected duration. Pain level reassessed. Patient is alert, oriented x 3, equal unlabored respirations, skin warm/dry/pink. Vital Signs: 20:50 BP 159 / 55; Pulse 82; Resp 20 S; Temp 97.0(O); Pulse Ox 99% on R/A; Weight 123.83 kg (R); Height 5 ft. 0 in. (152.40 cm) (R); Pain 0/10; 22:15 BP 158 / 55; Pulse 69; Resp 18; Pulse Ox 98% on R/A; wh 22:45 BP 155 / 58; Pulse 79; Resp 18; Pulse Ox 98% on R/A; wh 20:50 Body Mass Index 53.32 (123.83 kg, 152.40 cm) ED Course: 20:46 Patient arrived in ED. cl3 20:49 Florinda Basurto is Primary Nurse. wh 20:50 Triage completed. jd3 20:51 Arm band placed on. jd3 21:10 Patient has correct armband on for positive identification. Placed in gown. Bed in low wh position. Call light in reach. Side rails up X 1. panel monitor on. Pulse ox on. NIBP on. 21:17 Bradford Cerrato MD is Attending Physician. pkl 22:00 Inserted saline lock: 20 gauge in right antecubital area, using aseptic technique. Blood collected. 22:21 XRAY CXR (1 view) In Process Unspecified. EDMS 22:55 No provider procedures requiring assistance completed. IV discontinued, intact, bleeding controlled, No redness/swelling at site. Administered Medications: No medications were administered Outcome: 22:41 Discharge ordered by . sherry 22:56 Discharged to home via wheelchair. 22:56 Condition: stable 22:56 Discharge instructions given to patient, Instructed on discharge instructions, follow up and referral plans. POC Demonstrated understanding of instructions, follow-up care, POC 22:57 Patient left the ED. Signatures: Dispatcher [employer] EDMS Bradford Cerrato MD MD pkl Habalo, Winsy Clay Prakash RN RN Silvestre Acevedo cl3 Corrections: (The following items were deleted from the chart) 21:03 20:50 Pulse 82bpm; Resp 20bpm; Spontaneous; Pulse Ox 99% RA; Temp 97.0F Oral; 123.83 kg wh Reported; Height 5 ft. 0 in. Reported; BMI: 53.3; Pain 0/10; jd3 21:44 21:09 Cardiovascular: Heart tones S1 S2 Rhythm is regular [facility]
[2019-10-05 23:14] VITALS: TEMP 97
[2019-10-05 23:21] VITALS: O2SAT 98
[2019-10-05 23:28] VITALS: BP 155/58
--- NOTE | 2019-10-06 08:10 | EKG ---
Test Date: 2019-10-05 Test Time: 20:58:20 Rug Setter Velvet: SILVIA MEASUREMENT RESULTS: Intervals: Rate: 62 MO: 198 QRSD: 78 QT: 416 QTc: 422 [place]: P: 52 MO: 198 QRS: 26 T: 31 INTERPRETIVE STATEMENTS: Normal sinus rhythm Nonspecific ST abnormality Abnormal ECG Compared to ECG 02/03/2019 08:33:17 No significant changes Electronically Signed On 10-06-19 08:09:18 CDT by Chuy Hall
== END 2019-10-05 22:57 | disposition home or self-care (01) ==
LOC: ER 20:45
DX: I10 Essential (primary) hypertension (principal)
CPT/HCPCS: 36415; 71045; 80048; 85025; 93005; 99284

== ENCOUNTER 2020-03-29 22:20 | Emergency (ER) | payer OTHER ==
[2020-03-30] MEDS ORDERED: LIDOCAINE 1% 20 ML MDV ONE (01:15)
[2020-03-30] MEDS ORDERED: HALOPERIDOL LACT 5 MG/ML INJ ONE (01:18)
--- NOTE | 2020-03-30 01:30 | EDPHYS ---
Physician Documentation [facility] Name: Jazz Jones Age: 74 yrs Sex: Female : 1945 Arrival Date: 03/29/2020 Time: 22:23 Bed 17 Private MD: ED Physician Mac Morfin HPI: 03/30 01:04 This 74 yrs old Female presents to ER via Ambulatory with complaints of cp Foreign Body In Ear - Insect in left ear. 01:04 The patient presents with a foreign body sensation, presumably from an insect. The cp complaints affect the left ear. Onset: The symptoms/episode began/occurred last night. Associated signs and symptoms: Pertinent negatives: vertigo, vomiting. Severity of symptoms: in the emergency department the symptoms are unchanged despite home interventions. Historical: - Allergies: 03/29 22:33 Lisinopril; sg - PMHx: 22:33 Anxiety; CHF; Diabetes - NIDDM; Hypertension; sg - PSHx: 22:33 None; sg ROS: 03/30 01:05 ENT: Positive for foreign body left ear canal. cp All other systems are negative. Exam: 01:10 Constitutional: The patient appears in no acute distress, alert, awake, non-toxic, well cp developed, well nourished. 01:10 Head/Face: Normocephalic, atraumatic. cp 01:10 Eyes: Periorbital structures: appear normal, Conjunctiva: normal, no exudate, no injection, Sclera: no appreciated abnormality, Lids and lashes: appear normal, bilaterally. 01:10 ENT: External ear(s): are unremarkable, Ear canal(s): bloody discharge, that is minimal, in the left canal, foreign body, an insect, in the left external ear canal, Examination of the other ear shows no obvious abnormality, Nose: is normal, Mouth: Lips: moist, Oral mucosa: moist, Posterior pharynx: Airway: no evidence of obstruction, patent. 01:10 Neck: ROM/movement: is normal, is supple, without pain, no range of motions limitations. 01:10 Chest/axilla: Inspection: normal. 01:10 Cardiovascular: Rate: normal. 01:10 Respiratory: the patient does not display signs of respiratory distress, Respirations: normal, no use of accessory muscles, no retractions, labored breathing, is not present. Vital Signs: 01:35 BP 159 / 61; Pulse 76; Resp 18; Temp 97.7; Pulse Ox 100% on R/A; Pain 3/10; sg MDM: 01:04 Patient medically screened. cp 01:25 Differential diagnosis: otitis media, otitis externa, ruptured TM, foreign body, cp barotrauma . 01:30 Data reviewed: vital signs, nurses notes, and as a result, I will discharge patient. cp 01:30 Counseling: I had a detailed discussion with the patient and/or guardian regarding: the cp historical points, exam findings, and any diagnostic results supporting the discharge/admit diagnosis, the need for outpatient follow up, for definitive care, an ENT specialist. ED course: VSS. Insect partially removed using alligator clamps and water irrigation. Patient tolerated well. Will discharge to home to f/u with ENT. RX for ciprodex ear drops given. Administered Medications: 01:29 Not Given (hospital has none at this time): CIPRODEX 4 drops Otic in left ear once sg Disposition: 01:45 Chart complete. cp 05:34 Co-signature as Attending Physician, Mac Morfin MD. [email or web address] Disposition: 03/30/20 01:30 Discharged to Home. Impression: Foreign body in left ear - insect, partially removed from canal of left ear. - Condition is Stable. - Discharge Instructions: Ear Foreign Body. - Prescriptions for Ciprodex 0.3- 0.1 % Otic Drops, Suspension - instill 4 drop by OTIC route every 12 hours for 7 days , for ears ONLY; 1 Container. - Medication Reconciliation Form, Thank You Letter, Antibiotic Education, Prescription Opioid Use form. - Follow up: Eden Corey MD; When: 1 - 2 days; Reason: Recheck today's complaints. - Problem is new. - Symptoms have improved. Signatures: Agustin Stern RN RN sg Elijah Stanley ds4 Padilla Syed PA PA cp Holmes, Maurice, MD MD [email or web address] Corrections: (The following items were deleted from the chart) 01:42 01:30 03/30/2020 01:30 Discharged to Home. Impression: Foreign body in left ear - ds4 insect, partially removed from canal of left ear. Condition is Stable. Prescriptions for Ciprodex 0.3-0.1 % Otic Drops, Suspension - instill 4 drop by OTIC route every 12 hours for 7 days , for ears ONLY; 1 Container. and Forms are Medication Reconciliation Form, Thank You Letter, Antibiotic Education, Prescription Opioid Use. Follow up: Eden Corey; When: 1 - 2 days; Reason: Recheck today's complaints. Problem is new. Symptoms have improved. cp
--- NOTE | 2020-03-30 01:30 | ER ---
Nurse's Notes [facility] Name: Jazz Jones Age: 74 yrs Sex: Female : 1945 Arrival Date: 03/29/2020 Time: 22:23 Bed 17 Private MD: Diagnosis: Foreign body in left ear-insect, partially removed from canal of left ear Presentation: 03/29 22:32 Acuity: ISABEL 5 03/30 00:53 Chief complaint: Patient states: Feels like there is something in my ear. Coronavirus sg screen: Client denies travel out of the [place] in the last 14 days. At this time, the client does not indicate any symptoms associated with coronavirus-19. Ebola Screen: Patient negative for fever greater than or equal to 101.5 degrees Fahrenheit, and additional compatible Ebola Virus Disease symptoms Patient denies exposure to infectious person. Patient denies travel to an Ebola-affected area in the 21 days before illness onset. No symptoms or risks identified at this time. Initial Sepsis Screen: Does the patient meet any 2 criteria? No. Patient's initial sepsis screen is negative. Does the patient have a suspected source of infection? No. Patient's initial sepsis screen is negative. Risk Assessment: Do you want to hurt yourself or someone else? Patient reports no desire to harm self or others. Onset of symptoms was March 30, 2020. Care prior to arrival: None. Transition of care: patient was not received from another setting of care. 00:53 Method Of Arrival: Ambulatory sg Historical: - Allergies: 03/29 22:33 Lisinopril; sg - PMHx: 22:33 Anxiety; CHF; Diabetes - NIDDM; Hypertension; sg - PSHx: 22:33 None; sg Vital Signs: 03/30 01:35 BP 159 / 61; Pulse 76; Resp 18; Temp 97.7; Pulse Ox 100% on R/A; Pain 3/10; sg ED Course: 03/29 22:23 Patient arrived in ED. am2 22:33 Triage completed. 03/30 00:53 Arm band placed on. sg 00:54 Padilla Syed PA is PHCP. cp 00:54 Mac Morfin MD is Attending Physician. cp 00:56 Linscombe, Allyn, RN is Primary Nurse. ll2 01:25 Eden Corey MD is Referral Physician. cp Administered Medications: 01:29 Not Given (hospital has none at this time): CIPRODEX 4 drops Otic in left ear once sg Outcome: 01:30 Discharge ordered by . cp 01:42 Patient left the ED. ds4 Signatures: Agustin Stern RN RN sg Elijah Stanley ds4 Padilla Syed PA PA cp Lisa Catalan 2 Allyn Lomeli, FILIPE RN 2
[2020-03-30 01:52] VITALS: BP 159/61; TEMP 97.7; O2SAT 100
== END 2020-03-30 01:42 | disposition home or self-care (01) ==
LOC: ER 22:20
PROC: 09C4XZZ Extirpation of Matter from Left External Auditory Canal, External Approach (ICD-10-PCS; principal; 2020-03-30)
DX: T16.2XXA Foreign body in left ear, initial encounter (principal); I10 Essential (primary) hypertension
CPT/HCPCS: 99281; J1630

== ENCOUNTER 2020-06-27 11:31 | Emergency (ER) | payer OTHER ==
[2020-06-27 12:27] LABS: Absolute Lymphocytes (CBC) 1.1 K/uL (0.7-4.9); Basophils % 0.7 % (0-1.3); Hematocrit 36.3 % (36.0-45.0); Lymphocytes % 14.8 % (15.3-44.8); MPV 8.5 fL (7.6-11.3); RBC Red Blood Cell Count 4.49 M/uL (3.86-4.86)
[2020-06-27 12:52] LABS: ALT/SGPT 22 U/L (12-78); AST/SGOT 22 U/L (15-37); BUN Blood Urea Nitrogen 17 mg/dL (7-18); Bicarbonate 28 mmol/L (21-32); Glucose Level 97 mg/dL (74-106); Potassium 3.9 mmol/L (3.5-5.1); Sodium Level 137 mmol/L (136-145)
[2020-06-27 12:53] LABS: Albumin 3.5 g/dL (3.4-5.0); Alkaline Phosphatase 108 U/L (45-117); Bilirubin Direct 0.2 mg/dL (0-0.2); Bilirubin Total 0.8 mg/dL (0.2-1.0); Magnesium 2.3 mg/dL (1.8-2.4); NT PRO-BNP 264 pg/mL (<125); Protein, Total 8.1 g/dL (6.4-8.2); Troponin (Emerg Dept Use Only) < 0.02 ng/mL (0.0-0.045)
--- NOTE | 2020-06-27 14:26 | ER ---
Nurse's Notes [facility] [place], [place] Name: Jazz Jones Age: 75 yrs Sex: Female : 1945 Arrival Date: 06/27/2020 Time: 11:33 Bed 23 Private MD: Diagnosis: Elevated Blood Pressure Presentation: 06/27 11:37 Chief complaint: Patient states: HTN 207/96 started today. Hx HTN. Coronavirus screen: sv Client denies travel out of the [place] in the last 14 days. At this time, the client does not indicate any symptoms associated with coronavirus-19. Ebola Screen: No symptoms or risks identified at this time. Risk Assessment: Do you want to hurt yourself or someone else? Patient reports no desire to harm self or others. Onset of symptoms was June 27, 2020. 11:37 Method Of Arrival: Ambulatory sv 11:37 Acuity: ISABEL 4 sv 11:38 Initial Sepsis Screen: Does the patient meet any 2 criteria? No. Patient's initial sv sepsis screen is negative. Does the patient have a suspected source of infection? No. Patient's initial sepsis screen is negative. Triage Assessment: 11:37 General: Appears in no apparent distress. comfortable, obese, well developed, Behavior sv is calm, cooperative, appropriate for age. Pain: Denies pain. Neuro: Level of Consciousness is awake, alert, obeys commands, Oriented to person, place, time, situation, Gait is steady. Respiratory: Respiratory effort is even, unlabored. Historical: - Allergies: 11:37 Lisinopril; sv - PMHx: 11:37 Anxiety; CHF; Diabetes - NIDDM; Hypertension; sv - PSHx: 11:37 None; sv - Immunization history:: Client reports having NOT received the Covid vaccine. - Social history:: Smoking status: Patient denies any tobacco usage or history of. Screenin:02 Abuse screen: Denies threats or abuse. Nutritional screening: No deficits noted. vg1 Tuberculosis screening: No symptoms or risk factors identified. Fall Risk No fall in past 12 months (0 pts). No secondary diagnosis (0 pts). IV access (20 points). Ambulatory Aid- None/Bed Rest/Nurse Assist (0 pts). Gait- Normal/Bed Rest/Wheelchair (0 pts) Mental Status- Oriented to own ability (0 pts). Total Fernandez Fall Scale indicates No Risk (0-24 pts). Assessment: 12:01 General: Appears in no apparent distress. comfortable, Behavior is calm, cooperative. vg1 Pain: Denies pain. Neuro: Level of Consciousness is awake, alert, obeys commands, Oriented to person, place, time, situation. Cardiovascular: Patient's skin is warm and dry. Respiratory: Airway is patent Respiratory effort is even, unlabored. GI: No signs and/or symptoms were reported involving the gastrointestinal system. : No signs and/or symptoms were reported regarding the genitourinary system. EENT: No signs and/or symptoms were reported regarding the EENT system. Derm: Skin is intact, is healthy with good turgor. Musculoskeletal: Circulation, motion, and sensation intact. 13:05 Reassessment: Patient appears in no apparent distress at this time. Patient and/or vg1 family updated on plan of care and expected duration. Pain level reassessed. Patient is alert, oriented x 3, equal unlabored respirations, skin warm/dry/pink. Patient states feeling better. 14:05 Reassessment: Patient appears in no apparent distress at this time. Patient and/or vg1 family updated on plan of care and expected duration. Pain level reassessed. Patient is alert, oriented x 3, equal unlabored respirations, skin warm/dry/pink. Patient denies pain at this time. 14:57 Reassessment: Patient appears in no apparent distress at this time. Patient and/or vg1 family updated on plan of care and expected duration. Pain level reassessed. Patient is alert, oriented x 3, equal unlabored respirations, skin warm/dry/pink. Patient denies pain at this time. Patient states feeling better. Vital Signs: 11:38 BP 157 / 60; Pulse 74; Resp 16; Temp 98.3; Pulse Ox 100% ; Weight 121.56 kg; Height 5 sv ft. 2 in. (157.48 cm); Pain 0/10; 12:02 BP 153 / 55; Pulse 74; Resp 18; Pulse Ox 98% on R/A; vg1 12:30 BP 145 / 42; Pulse 50; Resp 18; Pulse Ox 98% on R/A; vg1 13:00 BP 165 / 52; Pulse 57; Resp 18; Pulse Ox 100% on R/A; vg1 13:30 BP 110 / 87; Pulse 53; Resp 16; Pulse Ox 100% ; vg1 11:38 Body Mass Index 49.02 (121.56 kg, 157.48 cm) sv ED Course: 11:33 Patient arrived in ED. ds1 11:37 Arm band placed on. sv 11:38 Triage completed. sv 11:41 Augusto William PA is PHCP. [facility] 11:41 Padilla Doimnique MD is Attending Physician. [facility] 11:46 Paris Chu, RN is Primary Nurse. vg1 12:03 Patient has correct armband on for positive identification. Bed in low position. Call vg1 light in reach. Side rails up X 1. Adult w/ patient. 12:14 Initial lab(s) drawn, by me, sent to lab. EKG done. EKG done, by ED staff, reviewed by nick GA. Inserted saline lock: 20 gauge in right antecubital area, using aseptic technique. Blood collected. Patient maintains SpO2 saturation greater than 95% on room air. 13:47 Basic Metabolic Panel Sent. sv 13:47 CBC with Diff Sent. sv 13:47 LFT's Sent. sv 13:47 Magnesium Sent. sv 14:56 No provider procedures requiring assistance completed. IV discontinued, intact, vg1 bleeding controlled, No redness/swelling at site. Pressure dressing applied. Administered Medications: No medications were administered Outcome: 14:25 Discharge ordered by . [facility] 14:57 Discharged to home ambulatory, with family. vg1 14:57 Condition: stable 14:57 Discharge instructions given to patient, Instructed on discharge instructions, follow up and referral plans. Demonstrated understanding of instructions, follow-up care. 14:58 Patient left the ED. vg1 Signatures: Eden Tobar, RN RN Augusto William PA PA [facility] Cici Vaz ds1 Gregorio Jung jp3 Paris Chu, RN RN vg1
--- NOTE | 2020-06-27 14:26 | EDPHYS ---
Physician Documentation [facility] Name: Jazz Jones Age: 75 yrs Sex: Female : 1945 Arrival Date: 06/27/2020 Time: 11:33 Bed 23 Private MD: AUBREE Physician Padilla Dominique HPI: 06/27 11:44 This 75 yrs old Female presents to ER via Ambulatory with complaints of High jmm Blood Pressure. 11:44 The patient has elevated blood pressure and discovered this at home. Onset: The jmm symptoms/episode began/occurred this morning. Modifying factors: The symptoms are aggravated by activity, The symptoms are alleviated by. Associated signs and symptoms: Pertinent positives: palpitations, Pertinent negatives: chest pain, dizziness, headache, lightheadedness, nausea, visual changes. . Historical: - Allergies: 11:37 Lisinopril; sv - PMHx: 11:37 Anxiety; CHF; Diabetes - NIDDM; Hypertension; sv - PSHx: 11:37 None; sv - Immunization history:: Client reports having NOT received the Covid vaccine. - Social history:: Smoking status: Patient denies any tobacco usage or history of. ROS: 11:44 Constitutional: Negative for fever, chills, and weight loss. jmm 11:44 Respiratory: Negative for shortness of breath, cough, wheezing, and pleuritic chest pain, Abdomen/GI: Negative for abdominal pain, nausea, vomiting, diarrhea, and constipation, Neuro: Negative for headache, weakness, numbness, tingling, and seizure. 11:44 Cardiovascular: Positive for palpitations. 11:44 All other systems are negative. Exam: 11:44 Constitutional: This is a well developed, well nourished patient who is awake, alert, jmm and in no acute distress. Head/Face: atraumatic. Eyes: EOMI, no conjunctival erythema appreciated ENT: Moist Mucus Membranes Neck: Trachea midline, Supple Chest/axilla: Normal chest wall appearance and motion. Cardiovascular: Regular rate and rhythm. No edema appreciated Respiratory: Normal respirations, no respiratory distress appreciated Abdomen/GI: Non distended, soft Back: Normal ROM Skin: General appearance color normal MS/ Extremity: Moves all extremities, no obvious deformities appreciated, no edema noted to the lower extremities Neuro: Awake and alert, normal gait Psych: Behavior is normal, Mood is normal, Patient is cooperative and pleasant Vital Signs: 11:38 BP 157 / 60; Pulse 74; Resp 16; Temp 98.3; Pulse Ox 100% ; Weight 121.56 kg; Height 5 sv ft. 2 in. (157.48 cm); Pain 0/10; 12:02 BP 153 / 55; Pulse 74; Resp 18; Pulse Ox 98% on R/A; vg1 12:30 BP 145 / 42; Pulse 50; Resp 18; Pulse Ox 98% on R/A; vg1 13:00 BP 165 / 52; Pulse 57; Resp 18; Pulse Ox 100% on R/A; vg1 13:30 BP 110 / 87; Pulse 53; Resp 16; Pulse Ox 100% ; vg1 11:38 Body Mass Index 49.02 (121.56 kg, 157.48 cm) sv MDM: 11:44 Patient medically screened. radhika 14:22 Data reviewed: vital signs, nurses notes. Counseling: I had a detailed discussion with larry the patient and/or guardian regarding: the historical points, exam findings, and any diagnostic results supporting the discharge/admit diagnosis, lab results, radiology results, the need for outpatient follow up, to return to the emergency department if symptoms worsen or persist or if there are any questions or concerns that arise at home. ED course: Patient is alert and non toxic mady ppearance in the ED. Labs wnl. Patient is asymptomatic. BP is wnl in the ED. Patient advised to follow up with pcp and otherwise given strict return precautions. patient understood and agrees with the plan of care. . 06/27 12:04 Order name: Basic Metabolic Panel [facility] 06/27 12:04 Order name: CBC with Diff [facility] 06/27 12:04 Order name: LFT's [facility] 06/27 12:04 Order name: Magnesium [facility] 06/27 12:04 Order name: NT PRO-BNP; Complete Time: 12:55 [facility] 06/27 12:04 Order name: Troponin (emerg Dept Use Only); Complete Time: 12:56 [facility] 06/27 12:04 Order name: EKG; Complete Time: 12:05 [facility] 06/27 12:04 Order name: Cardiac monitoring; Complete Time: 12:15 [facility] 06/27 12:04 Order name: EKG - Nurse/Tech; Complete Time: 12:15 [facility] 06/27 12:04 Order name: Basic Metabolic Panel; Complete Time: 12:55 [facility] 06/27 12:04 Order name: CBC with Automated Diff; Complete Time: 12:33 [facility] 06/27 12:04 Order name: Liver (Hepatic) Function; Complete Time: 12:56 [facility] 06/27 12:04 Order name: Magnesium; Complete Time: 12:56 [facility] 06/27 12:04 Order name: IV Saline Lock; Complete Time: 12:15 [facility] 06/27 12:04 Order name: Labs collected and sent; Complete Time: 12:15 [facility] 06/27 12:04 Order name: O2 Per Protocol; Complete Time: 12:05 [facility] 06/27 12:04 Order name: O2 Sat Monitoring; Complete Time: 12:05 [facility] Administered Medications: No medications were administered Disposition: 06/27/20 14:25 Discharged to Home. Impression: Elevated Blood Pressure. - Condition is Stable. - Discharge Instructions: Hypertension. - Medication Reconciliation Form, Thank You Letter, Antibiotic Education, Prescription Opioid Use form. - Follow up: Private Physician; When: 2 - 3 days; Reason: Recheck today's complaints, Continuance of care, Re-evaluation by your physician. Addendum: 06/30/2020 09:26 Co-signature as Attending Physician, Padilla Dominique MD I agree with the assessment and c avina plan of care. Signatures: Dispatcher [employer] Eden Degroot, Padilla Vuong RN, MD MD cha Mickail, Joel, PA PA jmm Garcia, Victoria RN RN vg1 Corrections: (The following items were deleted from the chart) 06/27 14:58 14:25 06/27/2020 14:25 Discharged to Home. Impression: Elevated Blood Pressure. vg1 Condition is Stable. Forms are Medication Reconciliation Form, Thank You Letter, Antibiotic Education, Prescription Opioid Use. Follow up: Private Physician; When: 2 - 3 days; Reason: Recheck today's complaints, Continuance of care, Re-evaluation by your physician. larry
[2020-06-27 15:09] VITALS: TEMP 98.3
[2020-06-27 15:30] VITALS: O2SAT 100
[2020-06-27 15:32] VITALS: BP 110/87
--- NOTE | 2020-06-28 10:38 | EKG ---
Test Date: 2020-06-27 Test Time: 12:12:30 Finisher Denture: DON MEASUREMENT RESULTS: Intervals: Rate: 68 IN: 190 QRSD: 84 QT: 416 QTc: 442 [place]: P: 47 IN: 190 QRS: 8 T: 20 INTERPRETIVE STATEMENTS: Normal sinus rhythm Normal ECG Compared to ECG 10/05/2019 20:58:20 ST (T wave) deviation no longer present Electronically Signed On 06-28-20 10:36:44 CDT by Chuy Hall
== END 2020-06-27 14:58 | disposition home or self-care (01) ==
LOC: ER 11:31
DX: I10 Essential (primary) hypertension (principal); Z88.8 Allergy status to other drugs, medicaments and biological substances
CPT/HCPCS: 36415; 80048; 80076; 83735; 83880; 84484; 85025; 93005; 99284

== ENCOUNTER 2021-04-20 09:41 | Emergency (ER) | payer OTHER ==
[2021-04-20 10:21] LABS: Urine Blood Trace-intact (Negative); Urine Glucose Negative (Negative); Urine Protein Negative (Negative); Urine Specific Gravity 1.015 (1.005-1.030)
[2021-04-20] MEDS ORDERED: NA CHLORIDE 0.9% 1,000 ML ONE (10:23)
[2021-04-20] MEDS ORDERED: AMLODIPINE 10 MG TAB ONE (10:23)
[2021-04-20 10:30] LABS: Absolute Lymphocytes (CBC) 1.5 K/uL (0.7-4.9); Hematocrit 38.9 % (36.0-45.0); Lymphocytes % 20.1 % (15.3-44.8); MPV 8.3 fL (7.6-11.3); RBC Red Blood Cell Count 4.57 M/uL (3.86-4.86)
[2021-04-20 10:39] LABS: Protime INR 1.06
[2021-04-20 10:54] LABS: Albumin 3.4 g/dL (3.4-5.0); Bilirubin Direct 0.2 mg/dL (0-0.2); Bilirubin Total 0.6 mg/dL (0.2-1.0); Magnesium 2.5 mg/dL (1.8-2.4); Potassium 3.5 mmol/L (3.5-5.1); Protein, Total 8.3 g/dL (6.4-8.2); Troponin High Sensitivity 22.5 pg/mL (<58.9)
--- NOTE | 2021-04-20 11:48 | RAD REPORT ---
EXAM DESCRIPTION: RAD - Chest Single View - 04/20/2021 10:57 am CLINICAL HISTORY: High Blood pressure COMPARISON: Chest Single View dated 10/05/2019; Chest Pa And Lat (2 Views) dated 02/04/2019; Chest Si ngle View dated 02/03/2019; Chest Single View dated 09/07/2017 FINDINGS: Lines: None. Lungs: No evidence of edema or pneumonia. Pleural: No significant pleural effusions or pneumothorax. Cardiac: The heart size is within normal limits. Bones: No acute fractures. Other: IMPRESSION: No acute cardiopulmonary disease.
--- NOTE | 2021-04-20 13:18 | ER ---
Nurse's Notes [facility] Name: Jazz Jones Age: 75 yrs Sex: Female : 1945 Arrival Date: 04/20/2021 Time: 09:51 Bed 23 Private MD: Diagnosis: Obesity, unspecified;Essential (primary) hypertension;Type 2 diabetes mellitus with hyperglycemia Presentation: 04/20 09:39 Chief complaint: EMS states: pt toned out for High Blood Pressure; EMS states manual BP vg1 was 250/100, stated no s/s of stoke, automatic BP stated 170's systolic; pt states dizziness and weakness x 2 weeks and this morning upon wakening around 0500 dizziness and weakness became worse. Pt denies chest pain or shortness of breath, denies heachache or N/V. 09:39 Coronavirus screen: Vaccine status: Patient reports being unvaccinated. Client denies vg1 travel out of the [place] in the last 14 days. Ebola Screen: Patient negative for fever greater than or equal to 101.5 degrees Fahrenheit, and additional compatible Ebola Virus Disease symptoms. Initial Sepsis Screen: Does the patient meet any 2 criteria? No. Patient's initial sepsis screen is negative. Does the patient have a suspected source of infection? No. Patient's initial sepsis screen is negative. Risk Assessment: Do you want to hurt yourself or someone else? Patient reports no desire to harm self or others. Onset of symptoms was April 20, 2021. 09:39 Method Of Arrival: EMS: [facility] vg1 09:39 Acuity: ISABEL 2 vg1 Triage Assessment: 09:55 General: Appears uncomfortable, Behavior is anxious. Pain: Denies pain. EENT: No signs vg1 and/or symptoms were reported regarding the EENT system. Neuro: Level of Consciousness is awake, alert, obeys commands, Oriented to person, place, time, situation, Powder Carrier are equal bilaterally Moves all extremities. Gait is unsteady, Speech is normal, Facial symmetry appears normal. Cardiovascular: Patient's skin is warm and dry. Respiratory: Airway is patent Respiratory effort is even, unlabored. Historical: - Allergies: 10:55 Lisinopril; eo2 - Home Meds: 09:55 losartan potassium 50 mg BID [Active]; Spironolactone Oral [Active]; vg1 Hydrochlorothiazide Oral [Active]; - PMHx: 09:55 Anxiety; CHF; Diabetes - NIDDM; Hypertension; vg1 - Immunization history:: Client reports having NOT received the Covid vaccine. - Social history:: Smoking status: Patient denies any tobacco usage or history of. Screenin:58 Abuse screen: Denies threats or abuse. Nutritional screening: No deficits noted. vg1 Tuberculosis screening: No symptoms or risk factors identified. Fall Risk No fall in past 12 months (0 pts). No secondary diagnosis (0 pts). IV access (20 points). Ambulatory Aid- Crutches/Cane/Walker (15 pts). Gait- Weak (10 pts.). Mental Status- Oriented to own ability (0 pts). Total Fernandez Fall Scale indicates High Risk Score (45 or more points). Fall prevention measures have been instituted. Side Rails Up X 2 Placed Close to Nursing Station. Assessment: 10:50 General: Appears in no apparent distress. Behavior is anxious. Pain: Denies pain. eo2 Neuro: Level of Consciousness is awake, alert, obeys commands, Oriented to person, place, time, situation, Reports dizziness, weakness for 2 weeks, presently denies SANCHEZ dizziness. Cardiovascular: Denies chest pain, shortness of breath. Respiratory: Airway is patent Trachea midline Respiratory effort is even, unlabored, Respiratory pattern is regular, symmetrical, Breath sounds are clear bilaterally. Denies shortness of breath. GI: Abdomen is round Patient currently denies abdominal pain. 10:54 Reassessment: noted hx of lisinopril from previous info in chart, pt states she does eo2 not know if she is allergic to lisinopril, showed losartan, spironolactone, hctz as the medications she currently takes. Vital Signs: 09:39 BP 202 / 132; Pulse 78; Resp 17; Temp 98.4; Pulse Ox 100% ; Weight 127.01 kg; Height 5 vg1 ft. 0 in. (152.40 cm); Pain 0/10; 10:00 BP 184 / 71; Pulse 78; Resp 15; Pulse Ox 100% ; Pain 0/10; eo2 10:40 BP 163 / 80; Pulse 77; Resp 16; Pulse Ox 100% ; eo2 11:30 BP 162 / 91; Pulse 70; Resp 17; Pulse Ox 97% ; Pain 0/10; eo2 12:30 BP 154 / 48; Pulse 76; Resp 16; Pulse Ox 98% ; Pain 0/10; eo2 14:30 BP 144 / 79; Pulse 77; Resp 17; Pulse Ox 100% ; Pain 0/10; eo2 09:39 Body Mass Index 54.68 (127.01 kg, 152.40 cm) vg1 Vitals: 10:40 Cardiac Rhythm Assessment Regular. eo2 ED Course: 09:51 Patient arrived in ED. vg1 09:55 Triage completed. vg1 09:55 Arm band placed on. EKG completed in triage. Results shown to MD. vg1 09:58 Patient has correct armband on for positive identification. Placed in gown. Bed in low vg1 position. Call light in reach. Side rails up X2. passenger interline clerk on. Pulse ox on. NIBP on. 10:07 Padilla Dominique MD is Attending Physician. [facility] 10:07 EKG done, by ED staff, reviewed by Padilla Dominique MD. mb 10:14 Initial lab(s) drawn, by de, sent to lab. Inserted saline lock: 22 gauge in right vg1 wrist, using aseptic technique. Blood collected. 10:15 Angy Fregoso, RN is Primary Nurse. eo2 10:35 No provider procedures requiring assistance completed. eo2 10:40 Door closed. Noise minimized. Warm blanket given. Pillow given. eo2 10:57 CBC with Diff Sent. eo2 10:57 Basic Metabolic Panel Sent. eo2 10:58 XRAY Chest (1 view) In Process Unspecified. EDMS 13:17 Chuy Hall MD is Referral Physician. radhika 14:56 IV discontinued, intact. eo2 Administered Medications: 10:50 Drug: NS 0.9% 1000 ml Route: IV; Rate: 125 ml/hr; Site: right wrist; eo2 14:50 Follow up: Response: No adverse reaction; IV Status: Completed infusion; IV Intake: eo2 500ml 10:50 Drug: Norvasc (amlodipine) 10 mg Route: PO; eo2 12:40 Follow up: Response: No adverse reaction eo2 Intake: 14:50 IV: 500ml; Total: 500ml. eo2 Outcome: 13:17 Discharge ordered by . radhika 14:56 Discharged to home ambulatory, WC to [facility] eo2 14:56 Condition: stable 14:56 Discharge instructions given to patient, Instructed on discharge instructions, follow up and referral plans. medication usage, Demonstrated understanding of instructions, follow-up care, medications, Prescriptions given X 1. 14:58 Patient left the ED. eo2 Signatures: Dispatcher [employer] EDMS Padilla Dominique MD MD cha Garcia, Victoria RN RN vg1 Astrid Barboza [id number] Angy Fregoso RN RN eo2 Corrections: (The following items were deleted from the chart) 10:36 09:55 Allergies: NKDA; vg1 eo2 10:36 10:35 Allergies: Lisinopril; eo2 eo2 10:56 09:55 Home Meds: Lisinopril Oral; vg1 eo2 10:56 10:35 Allergies: No Known Allergies; eo2 eo2 10:56 10:36 Home Meds: Metoprolol Tartrate Oral; eo2 eo2 10:56 10:36 Home Meds: Furosemide Oral; eo2 eo2 10:56 10:36 Home Meds: atorvastatin Oral; eo2 eo2 10:56 10:36 Home Meds: amlodipine oral; eo2 eo2
--- NOTE | 2021-04-20 13:18 | EDPHYS ---
Physician Documentation [facility] Name: Jazz Jones Age: 75 yrs Sex: Female : 1945 Arrival Date: 04/20/2021 Time: 09:51 Bed 23 Private MD: ED Physician Padilla Dominique HPI: 04/20 11:26 This 75 yrs old Female presents to ER via EMS with complaints of High Blood radhika Pressure. 11:26 The patient has elevated blood pressure and discovered this at home, with a home radhika device. Onset: The symptoms/episode began/occurred 2 day(s) ago. Modifying factors: The symptoms are aggravated by activity, The symptoms are alleviated by remaining still. Associated signs and symptoms: Pertinent positives: weakness. Severity of symptoms: At its worst the blood pressure was moderate, in the emergency department the blood pressure is unchanged. The patient has experienced similar episodes in the past, several times. Historical: - Allergies: 10:55 Lisinopril; eo2 - Home Meds: 09:55 losartan potassium 50 mg BID [Active]; Spironolactone Oral [Active]; vg1 Hydrochlorothiazide Oral [Active]; - PMHx: 09:55 Anxiety; CHF; Diabetes - NIDDM; Hypertension; vg1 - Immunization history:: Client reports having NOT received the Covid vaccine. - Social history:: Smoking status: Patient denies any tobacco usage or history of. ROS: 11:28 Constitutional: Negative for fever, chills, and weight loss, Eyes: Negative for injury, radhika pain, redness, and discharge, ENT: Negative for injury, pain, and discharge, Neck: Negative for injury, pain, and swelling, Cardiovascular: Negative for chest pain, palpitations, and edema, Respiratory: Negative for shortness of breath, cough, wheezing, and pleuritic chest pain, Abdomen/GI: Negative for abdominal pain, nausea, vomiting, diarrhea, and constipation, Back: Negative for injury and pain, : Negative for injury, bleeding, discharge, and swelling, MS/Extremity: Negative for injury and deformity, Skin: Negative for injury, rash, and discoloration, Neuro: Negative for headache, weakness, numbness, tingling, and seizure, Psych: Negative for depression, anxiety, suicide ideation, homicidal ideation, and hallucinations, Allergy/Immunology: Negative for hives, rash, and allergies, Endocrine: Negative for neck swelling, polydipsia, polyuria, polyphagia, and marked weight changes, Hematologic/Lymphatic: Negative for swollen nodes, abnormal bleeding, and unusual bruising. Exam: 11:28 Constitutional: This is a well developed, well nourished patient who is awake, alert, radhika and in no acute distress. Head/Face: Normocephalic, atraumatic. Eyes: Pupils equal round and reactive to light, extra-ocular motions intact. Lids and lashes normal. Conjunctiva and sclera are non-icteric and not injected. Cornea within normal limits. Periorbital areas with no swelling, redness, or edema. ENT: Nares patent. No nasal discharge, no septal abnormalities noted. Tympanic membranes are normal and external auditory canals are clear. Oropharynx with no redness, swelling, or masses, exudates, or evidence of obstruction, uvula midline. Mucous membranes moist. Neck: Trachea midline, no thyromegaly or masses palpated, and no cervical lymphadenopathy. Supple, full range of motion without nuchal rigidity, or vertebral point tenderness. No Meningismus. Chest/axilla: Normal chest wall appearance and motion. Nontender with no deformity. No lesions are appreciated. Cardiovascular: Regular rate and rhythm with a normal S1 and S2. No gallops, murmurs, or rubs. Normal PMI, no JVD. No pulse deficits. Respiratory: Lungs have equal breath sounds bilaterally, clear to auscultation and percussion. No rales, rhonchi or wheezes noted. No increased work of breathing, no retractions or nasal flaring. Abdomen/GI: Soft, non-tender, with normal bowel sounds. No distension or tympany. No guarding or rebound. No evidence of tenderness throughout. Back: No spinal tenderness. No costovertebral tenderness. Full range of motion. Female : Normal external genitalia. Skin: Warm, dry with normal turgor. Normal color with no rashes, no lesions, and no evidence of cellulitis. MS/ Extremity: Pulses equal, no cyanosis. Neurovascular intact. Full, normal range of motion. Neuro: Awake and alert, GCS 15, oriented to person, place, time, and situation. Cranial nerves II-XII grossly intact. Motor strength 5/5 in all extremities. Sensory grossly intact. Cerebellar exam normal. Normal gait. Psych: Awake, alert, with orientation to person, place and time. Behavior, mood, and affect are within normal limits. 11:28 Musculoskeletal/extremity: DVT Exam: No signs of deep vein thrombosis. no pain, no swelling, no tenderness, negative Homans' sign noted on exam, no appreciated bluish discoloration, no erythema, no increased warmth. 13:15 ECG was reviewed by the Attending Physician. [facility] Vital Signs: 09:39 BP 202 / 132; Pulse 78; Resp 17; Temp 98.4; Pulse Ox 100% ; Weight 127.01 kg; Height 5 vg1 ft. 0 in. (152.40 cm); Pain 0/10; 10:00 BP 184 / 71; Pulse 78; Resp 15; Pulse Ox 100% ; Pain 0/10; eo2 10:40 BP 163 / 80; Pulse 77; Resp 16; Pulse Ox 100% ; eo2 11:30 BP 162 / 91; Pulse 70; Resp 17; Pulse Ox 97% ; Pain 0/10; eo2 12:30 BP 154 / 48; Pulse 76; Resp 16; Pulse Ox 98% ; Pain 0/10; eo2 14:30 BP 144 / 79; Pulse 77; Resp 17; Pulse Ox 100% ; Pain 0/10; eo2 09:39 Body Mass Index 54.68 (127.01 kg, 152.40 cm) vg1 MDM: 10:[address] [facility] 11:29 Differential diagnosis: Malignant HTN. Data reviewed: vital signs, nurses notes, lab [facility] test result(s), EKG, radiologic studies, plain films. Data interpreted: hospital monitor: rate is 77 beats/min, Pulse oximetry: on room air is 100 %. Test interpretation: by ED physician or midlevel provider: ECG, plain radiologic studies. Counseling: I had a detailed discussion with the patient and/or guardian regarding: the historical points, exam findings, and any diagnostic results supporting the discharge/admit diagnosis, lab results, radiology results. 04/20 10:03 Order name: Basic Metabolic Panel [facility] 04/20 10:03 Order name: CBC with Diff [facility] 04/20 10:03 Order name: LFT's; Complete Time: 11:17 [facility] 04/20 10:03 Order name: Magnesium; Complete Time: 11: vg04/20 10:03 Order name: NT PRO-BNP; Complete Time: 11:17 04/20 10:03 Order name: PT-INR; Complete Time: 10:52 04/20 10:03 Order name: Troponin HS; Complete Time: 11:17 04/20 10:03 Order name: XRAY Chest (1 view); Complete Time: 11:50 04/20 10:03 Order name: EKG; Complete Time: 10:04 04/20 10:03 Order name: Basic Metabolic Panel; Complete Time: 11:17 EDMS 04/20 10:03 Order name: CBC with Automated Diff; Complete Time: 10:52 EDMS 04/20 10:21 Order name: Urine Dipstick-Ancillary; Complete Time: 10:52 EDRI 04/20 10:03 Order name: Cardiac monitoring; Complete Time: 10:03 04/20 10:03 Order name: EKG - Nurse/Tech; Complete Time: 10:03 04/20 10:03 Order name: IV Saline Lock; Complete Time: 10:37 04/20 10:03 Order name: Labs collected and sent; Complete Time: 10:37 04/20 10:03 Order name: O2 Per Protocol; Complete Time: 10: 04/20 10:03 Order name: O2 Sat Monitoring; Complete Time: 10: 04/20 10:08 Order name: Urine Dipstick-Ancillary (obtain specimen); Complete Time: 10:20 radhika EC:15 Rate is 73 beats/min. Rhythm is regular. QRS [place] is Normal. [place] interval is normal. QRS radhika interval is normal. QT interval is normal. No Q waves. T waves are Normal. No ST changes noted. Clinical impression: NSR w/ Non-specific ST/T Changes and No evidence of ischemia. Interpreted by me. Reviewed by me. Administered Medications: 10:50 Drug: NS 0.9% 1000 ml Route: IV; Rate: 125 ml/hr; Site: right wrist; eo2 14:50 Follow up: Response: No adverse reaction; IV Status: Completed infusion; IV Intake: eo2 500ml 10:50 Drug: Norvasc (amlodipine) 10 mg Route: PO; eo2 12:40 Follow up: Response: No adverse reaction eo2 Disposition Summary: 04/20/21 13:17 Discharge Ordered Location: Home radhika Problem: new radhika Symptoms: have improved radhika Condition: Stable radhika Diagnosis - Obesity, unspecified radhika - Essential (primary) hypertension radhika - Type 2 diabetes mellitus with hyperglycemia radhika Followup: radhika - With: Private Physician - When: 2 - 3 days - Reason: Recheck today's complaints, Re-evaluation by your physician Followup: radhika - With: Chuy Hall MD - When: 2 - 3 days - Reason: Recheck today's complaints, Continuance of care, Re-evaluation by your physician Discharge Instructions: - Discharge Summary Sheet radhika - Type 2 Diabetes Mellitus, Diagnosis, Adult radhika - Hyperglycemia radhika - Hypertension, Adult radhika - Obesity, Adult radhika - Hypertension, Adult, [id number] radhika - How to Take Your Blood Pressure, Xiko-mg-Near radhika - Aspirin and Your Heart radhika - Managing Your Hypertension radhika Forms: - Medication Reconciliation Form radhika - Thank You Letter radhika - Antibiotic Education radhika - Prescription Opioid Use radhika Prescriptions: - Norvasc 5 mg Oral Tablet - take 1 tablet by ORAL route once daily; 20 tablet; Refills: 0, Product radhika Selection Permitted Signatures: Dispatcher [employer] EDMS Padilla Dominique MD MD cha Page, Corey, PA PA cp Garcia, Victoria, RN RN vg1 Angy Fregoso RN RN eo2 Corrections: (The following items were deleted from the chart) 10:36 09:55 Allergies: NKDA; vg1 eo2 10:36 10:35 Allergies: Lisinopril; eo2 eo2 10:56 09:55 Home Meds: Lisinopril Oral; vg1 eo2 10:56 10:35 Allergies: No Known Allergies; eo2 eo2 10:56 10:36 Home Meds: Metoprolol Tartrate Oral; eo2 eo2 10:56 10:36 Home Meds: Furosemide Oral; eo2 eo2 10:56 10:36 Home Meds: atorvastatin Oral; eo2 eo2 10:56 10:36 Home Meds: amlodipine oral; eo2 eo2
[2021-04-20 15:24] VITALS: BP 144/79; O2SAT 100
--- NOTE | 2021-04-21 09:13 | EKG ---
Test Date: 2021-04-20 Test Time: 10:02:53 Big Data Developer: CLARITA MEASUREMENT RESULTS: Intervals: Rate: 73 [place]: 190 QRSD: 78 QT: 412 QTc: 453 [place]: P: 56 [place]: 190 QRS: 50 T: 8 INTERPRETIVE STATEMENTS: Normal sinus rhythm Nonspecific ST abnormality Abnormal ECG Compared to ECG 06/27/2020 12:12:30 ST (T wave) deviation now present Electronically Signed On 04-21-21 09:09:26 ATTIC BLOWER by Chuy Hall
== END 2021-04-20 14:58 | disposition home or self-care (01) ==
LOC: ER 09:41
DX: I10 Essential (primary) hypertension (principal); E11.65 Type 2 diabetes mellitus with hyperglycemia; E66.9 Obesity, unspecified; Z68.43 Body mass index [BMI] 50.0-59.9, adult; I50.9 Heart failure, unspecified; F41.9 Anxiety disorder, unspecified; Z88.8 Allergy status to other drugs, medicaments and biological substances
CPT/HCPCS: 96361; 93005; 85025; 80048; 36415; 83735; 85610; 80076; 81003; 84484; 83880; 71045; 96360; 99285; J7030

== ENCOUNTER 2022-09-28 15:26 | Emergency (ER) | payer OTHER ==
--- NOTE | 2022-09-28 16:33 | RAD REPORT ---
EXAM DESCRIPTION: RAD - Chest Pa And Lat (2 Views) - 09/28/2022 4:19 pm CLINICAL HISTORY: SOB COMPARISON: Chest Single View dated 11/30/2021; Chest Single View dated 04/20/2021; Chest Single View dated 10/05/2019; Chest Pa And Lat (2 Views) dated 02/04/2019 TECHNIQUE: PA and lateral views of the chest were obtained. FINDINGS: The lungs are clear. Right diaphragmatic eventration again noted. Heart size is normal and central vasculature is within normal limits. No pleural effusion or pneumothorax seen. No acute bony finding noted. IMPRESSION: No acute cardiopulmonary process.
--- NOTE | 2022-09-28 17:14 | RAD REPORT ---
EXAM DESCRIPTION: US - Extrem Venous W Compress [place] - 09/28/2022 4:41 pm CLINICAL HISTORY: Swelling COMPARISON: None. TECHNIQUE: Real-time sonographic evaluation of the bilateral lower extremity deep venous systems was performed. FINDINGS: Normal compressibility, flow augmentation, phasic flow and spontaneous flow is identified in both the left and right lower extremity deep venous systems, although nonvisualization of the left posterior tibial veins limits evaluation. No intraluminal filling defects seen. Right popliteal fossa lobulated 2.5 x 2.5 x 2.4 cm cyst. Moderate subcutaneous edema along the lower legs bilaterally. IMPRESSION: No evidence of DVT in either lower extremity allowing nonvisualization of left posterior tibial veins limits evaluation. Right popliteal fossa lobulated 2.5 x 2.5 x 2.4 cm cyst. Moderate subcutaneous edema along the lower legs bilaterally.
--- NOTE | 2022-09-28 18:17 | EDPHYS ---
Physician Documentation [facility] Name: Jazz Jones Age: 77 yrs Sex: Female : 1945 Arrival Date: 09/28/2022 Time: 15:26 Bed 9 Private MD: ED Physician Elian Mccormack HPI: 09/28 16:42 This 77 yrs old Female presents to ER via Ambulatory with complaints of Leg snw Swelling - Left. 16:42 The patient presents with swelling, tenderness. The complaints affect the bilateral snw lower ext with lymphedema appearance. Onset: The symptoms/episode began/occurred acutely. Severity of symptoms: At their worst the symptoms were moderate. The patient has experienced a previous episode. It is unknown whether or not the patient has recently seen a physician. 18:12 Mrs. Jones has been sitting at her family's bedside with legs dependent. She forgot to snw take her regular medications and will do better at keeping her legs elevated and staying on her diuretics and wearing her JUAN [employer] hose.. Historical: - Allergies: 15:55 Lisinopril; nj1 - PMHx: 15:55 Anxiety; CHF; Hypertension; nj1 - Immunization history:: Client reports receiving the 2nd dose of the Covid vaccine. - Social history:: Smoking status: Patient denies any tobacco usage or history of. ROS: 18:12 Constitutional: Negative for fever, chills, and weight loss, Eyes: Negative for injury, snw pain, redness, and discharge, ENT: Negative for injury, pain, and discharge, Neck: Negative for injury, pain, and swelling, Cardiovascular: Negative for chest pain, palpitations, and edema, Respiratory: Negative for shortness of breath, cough, wheezing, and pleuritic chest pain, Abdomen/GI: Negative for abdominal pain, nausea, vomiting, diarrhea, and constipation, Back: Negative for injury and pain, : Negative for injury, bleeding, discharge, and swelling, Neuro: Negative for headache, weakness, numbness, tingling, and seizure. 18:12 MS/extremity: Positive for swelling, of the right leg and left leg, left lower extremity weeping. Exam: 16:41 Constitutional: This is a well developed, well nourished patient who is awake, alert, snw and in no acute distress. Head/Face: Normocephalic, atraumatic. Eyes: Pupils equal round and reactive to light, extra-ocular motions intact. Lids and lashes normal. Conjunctiva and sclera are non-icteric and not injected. Cornea within normal limits. Periorbital areas with no swelling, redness, or edema. ENT: Nares patent. No nasal discharge, no septal abnormalities noted. Tympanic membranes are normal and external auditory canals are clear. Oropharynx with no redness, swelling, or masses, exudates, or evidence of obstruction, uvula midline. Mucous membranes moist. Neck: Trachea midline, no thyromegaly or masses palpated, and no cervical lymphadenopathy. Supple, full range of motion without nuchal rigidity, or vertebral point tenderness. No Meningismus. Chest/axilla: Normal chest wall appearance and motion. Nontender with no deformity. No lesions are appreciated. Cardiovascular: Regular rate and rhythm with a normal S1 and S2. No gallops, murmurs, or rubs. Normal PMI, no JVD. No pulse deficits. lower ext edema with weeping Respiratory: Lungs have equal breath sounds bilaterally, clear to auscultation and percussion. No rales, rhonchi or wheezes noted. No increased work of breathing, no retractions or nasal flaring. Abdomen/GI: Soft, non-tender, with normal bowel sounds. No distension or tympany. No guarding or rebound. No evidence of tenderness throughout. Back: No spinal tenderness. No costovertebral tenderness. Full range of motion. MS/ Extremity: Pulses equal, no cyanosis. Neurovascular intact. Full, normal range of motion. Neuro: Awake and alert, GCS 15, oriented to person, place, time, and situation. Cranial nerves II-XII grossly intact. Motor strength 5/5 in all extremities. Sensory grossly intact. Cerebellar exam normal. Normal gait. 16:41 Skin: Appearance: normal except for affected area, weeping at distal left lower extremity. Vital Signs: 15:52 BP 164 / 67; Pulse 60; Resp 18; Temp 98.8(TE); Pulse Ox 100% ; Weight 126.1 kg; Height nj1 5 ft. 0 in. ; Pain 0/10; 15:52 Body Mass Index 54.29 (126.10 kg, 152.4 cm) [facility] 15:52 Pain Scale: Adult nj1 MDM: 15:41 Patient medically screened. snw 18:18 Differential diagnosis: DVT, lymphedema, congestive heart failure. Data reviewed: vital snw signs, nurses notes, radiologic studies. Historians other than the Patient: Daughter/Son: Daughter. Counseling: I had a detailed discussion with the patient and/or guardian regarding: the historical points, exam findings, and any diagnostic results supporting the discharge/admit diagnosis, radiology results, the need for outpatient follow up, to return to the emergency department if symptoms worsen or persist or if there are any questions or concerns that arise at home. Response to treatment: the patient's symptoms have mildly improved after treatment. Special discussion: Based on the history and exam findings, there is no indication for further emergent testing or inpatient evaluation. I discussed with the patient/guardian the need to see the primary care provider for further evaluation of the symptoms. 09/28 15:56 Order name: US Extremity Venous W Compression Chetan; Complete Time: 17:15 snw 09/28 15:56 Order name: Chest Pa And Lat (2 Views) XRAY; Complete Time: 16:35 snw Administered Medications: No medications were administered Disposition Summary: 09/28/22 18:16 Discharge Ordered Location: Home snw Condition: Stable snw Diagnosis - Lymphedema, not elsewhere classified snw - Edema, unspecified - dependent snw Followup: snw - With: Private Physician - When: 1 - 2 days - Reason: Recheck today's complaints, Continuance of care, Re-evaluation by your physician Followup: snw - With: Emergency Department - When: As needed - Reason: Worsening of condition Discharge Instructions: - Discharge Summary Sheet snw - Edema snw - Lymphedema snw - Peripheral Edema snw Forms: - Medication Reconciliation Form snw - Thank You Letter snw - Antibiotic Education snw - Prescription Opioid Use snw - Patient Portal Instructions snw Signatures: Dispatcher [employer] Ratna Art, TECHNICAL PROJECT COORDINATOR-C TECHNICAL PROJECT COORDINATOR-Csnw Rebeca Moy RN RN nj1 Corrections: (The following items were deleted from the chart) 15:56 15:55 PMHx: Diabetes - NIDDM; nj1 nj1
--- NOTE | 2022-09-28 18:17 | ER ---
Nurse's Notes [facility] Name: Jazz Jones Age: 77 yrs Sex: Female : 1945 Arrival Date: 09/28/2022 Time: 15:26 Bed 9 Private MD: Diagnosis: Lymphedema, not elsewhere classified;Edema, unspecified-dependent Presentation: 09/28 15:52 Chief complaint: Patient states: Chetan leg swelling, left worse than right. "It is nj1 leaking". Coronavirus screen: Vaccine status:. Ebola Screen: Patient denies travel to an Ebola-affected area in the 21 days before illness onset. Initial Sepsis Screen: Does the patient meet any 2 criteria? No. Patient's initial sepsis screen is negative. Does the patient have a suspected source of infection? No. Patient's initial sepsis screen is negative. Risk Assessment: Do you want to hurt yourself or someone else? Patient reports no desire to harm self or others. Onset of symptoms was September 24, 2022. 15:52 Method Of Arrival: Ambulatory [facility] 15:52 Acuity: ISABEL 3 nj1 Triage Assessment: 18:42 General: Appears in no apparent distress. comfortable, Behavior is calm, cooperative. cm10 Historical: - Allergies: 15:55 Lisinopril; nj1 - PMHx: 15:55 Anxiety; CHF; Hypertension; nj1 - Immunization history:: Client reports receiving the 2nd dose of the Covid vaccine. - Social history:: Smoking status: Patient denies any tobacco usage or history of. Screenin:11 [facility] ED Fall Risk Assessment (Adult) History of falling in the last 3 months, cm10 including since admission No falls in past 3 months (0 pts) Confusion or Disorientation No (0 pts) Intoxicated or Sedated No (0 pts) Impaired Gait Yes (1 pt) Mobility Assist Device Used Yes (1 pt) Altered Elimination No (0 pt) Score/Fall Risk Level 0 - 2 = Low Risk Oriented to surroundings, Maintained a safe environment, Used ambulatory aids as needed (educated on \\T\\ assisted with). Abuse screen: Denies threats or abuse. Denies injuries from another. Nutritional screening: No deficits noted. Tuberculosis screening: No symptoms or risk factors identified. Assessment: 18:11 Pain: Complains of pain in left leg. Neuro: No deficits noted. Cardiovascular: No cm10 deficits noted. Respiratory: No deficits noted. Musculoskeletal: Swelling present in left leg. Vital Signs: 15:52 BP 164 / 67; Pulse 60; Resp 18; Temp 98.8(TE); Pulse Ox 100% ; Weight 126.1 kg; Height nj1 5 ft. 0 in. ; Pain 0/10; 15:52 Body Mass Index 54.29 (126.10 kg, 152.4 cm) [facility] 15:52 Pain Scale: Adult [facility] ED Course: 15:31 Patient arrived in ED. mg5 15:41 Ratna Guevara FNP-C is PHCP. snw 15:41 Elian Mccormack MD is Attending Physician. snw 15:55 Triage completed. nj1 15:57 Arm band placed on left wrist. nj1 16:18 Chest Pa And Lat (2 Views) XRAY In Process Unspecified. EDMS 16:43 US Extremity Venous W Compression Chetan In Process Unspecified. EDMS 17:55 Lisset Banegas, RN is Primary Nurse. cm10 18:11 Patient has correct armband on for positive identification. Call light in reach. cm10 Provided Education on: N/A. 18:11 No provider procedures requiring assistance completed. Patient did not have IV access cm10 during this emergency room visit. Administered Medications: No medications were administered Medication: 18:11 VIS not applicable for this client. cm10 Outcome: 18:16 Discharge ordered by MD. snw 18:42 Discharged to home via wheelchair, with family. cm10 18:42 Condition: good 18:42 Discharge instructions given to patient, Instructed on discharge instructions, follow up and referral plans. Demonstrated understanding of instructions, follow-up care. 18:42 Patient left the ED. cm10 Signatures: Dispatcher [employer] EDMS Ratna Guevara FNP-C FINANCIAL REPORTING CONSULTANT-Csnw Rebeca Moy RN RN nj1 Lisset Banegas, RN RN [email or web address] Nicki Gaytan mg5 Corrections: (The following items were deleted from the chart) 15:56 15:55 PMHx: Diabetes - NIDDM; [place] [id number] 15:57 15:52 Pulse 60bpm; Resp 18bpm; Pulse Ox 100%; Temp 98.8F Temporal; 126.1 kg; Height 5 nj1 ft. 0 in.; BMI: 54.2; Pain 0/10, Adult; nj1
[2022-09-28 18:53] VITALS: BP 164/67; TEMP 98.8; O2SAT 100
== END 2022-09-28 18:42 | disposition home or self-care (01) ==
LOC: ER 15:26
DX: I89.0 Lymphedema, not elsewhere classified (principal); R60.9 Edema, unspecified; M79.89 Other specified soft tissue disorders; Z88.8 Allergy status to other drugs, medicaments and biological substances; I10 Essential (primary) hypertension; I50.9 Heart failure, unspecified; F41.9 Anxiety disorder, unspecified
CPT/HCPCS: 71046; 93970

== ENCOUNTER 2023-08-18 22:11 | Emergency (ER) | payer OTHER ==
[2023-08-18] MEDS ORDERED: FOLIC ACID 5 MG/ML VIAL ONE (23:04)
[2023-08-18] MEDS ORDERED: NA CHLORIDE 0.9% 1,000 ML ONE (23:05)
[2023-08-18] MEDS ORDERED: TENECTEPLASE 50 MG/10 ML VIAL IV ONE (23:05)
[2023-08-18 23:11] LABS: Absolute Eosinophils 0.1 K/uL (0-0.5); Absolute Lymphocytes (CBC) 1.6 K/uL (0.7-4.9); Basophils % 0.4 % (0-1.3); Hematocrit 38.2 % (36.0-45.0); Hemoglobin 12.5 g/dL (12.0-15.0); MCH 27.9 pg (27.0-35.0); MCHC 32.6 g/dL (32.0-36.0); MCV 85.7 fL (80-100); MPV 8.7 fL (7.6-11.3); Monocytes % 11.5 % (3.3-12.3); Neutrophils % 69.1 % (41.7-73.7); Nucleated Red Blood Cells % 0.1 % (0-0); PT Prothrombin Time 12.4 SECONDS (9.4-12.5); Platelets 294 thou/uL (152-406); Protime INR 1.13; RBC Red Blood Cell Count 4.46 M/uL (3.86-4.86); Red Cell Distribution Width 16.2 % (12.1-15.2)
[2023-08-18 23:37] LABS: ALT/SGPT 17 U/L (13-56); AST/SGOT 14 U/L (15-37); Albumin 3.3 g/dL (3.4-5.0); Albumin/Globulin Ratio 0.7 (1.1-1.8); Alkaline Phosphatase 97 U/L (45-117); Anion Gap 7.8 mEq/L (5.0-15.0); BUN Blood Urea Nitrogen 19 mg/dL (7-18); Bicarbonate 29 mEq/L (21-32); Bilirubin Total 0.3 mg/dL (0.2-1.0); Globulin 4.7 g/dL (2.3-3.5); Glomerular Filtration Rate 49 ml/min (=/>90); Glucose Level 113 mg/dL (74-106); Magnesium 2.1 mg/dL (1.6-2.4); NT PRO-BNP 2744 pg/mL (<450); Potassium 3.8 mEq/L (3.5-5.1); Sodium Level 137 mEq/L (136-145); Troponin High Sensitivity 48.9 pg/mL (<58.9)
[2023-08-18 23:41] LABS: Bilirubin Direct < 0.2 mg/dL (0-0.2); Bilirubin Indirect, Calculated 0.1 mg/dL (0.2-0.8)
--- NOTE | 2023-08-18 23:42 | EDPHYS ---
Physician Documentation [facility] Name: Jazz Jones Age: 78 yrs Sex: Female : 1945 Arrival Date: 08/18/2023 Time: 22:11 Bed 6 Private MD: ED Physician Padilla Dominique HPI: 08/17 22:41 This 78 yrs old Female presents to ER via Unassigned with complaints of radhika aphasia at 930 pm, better at 10pm, still with difficulty. 22:41 The patient presents to the emergency department with a speech or higher order brain radhika function problem, aphasia. Onset: The symptoms/episode began/occurred at 21:30. Context: occurred at home, occurred while the patient was talking on a meeting. Associated signs and symptoms: The patient has no apparent associated signs or symptoms. Severity of symptoms: At their worst the symptoms were mild in the emergency department the symptoms are unchanged. Patient's baseline: Neuro: alert and fully oriented. Current symptoms: dysphasia. The patient has not experienced similar symptoms in the past. Historical: - Allergies: 22:14 Lisinopril; jw7 - Home Meds: 22:14 losartan potassium 50 mg BID [Active]; jw7 - PMHx: 22:14 Anxiety; CHF; Hypertension; jw7 - PSHx: 22:14 None; jw7 - Immunization history:: Adult Immunizations up to date, Pneumococcal vaccine is up to date, Flu vaccine is up to date. - Infectious Disease History:: Denies. - Social history:: Smoking status: Patient denies any tobacco usage or history of. Patient/guardian denies using alcohol, street drugs, IV drugs. ROS: 22:41 Constitutional: Negative for fever, chills, and weight loss, Eyes: Negative for injury, radhika pain, redness, and discharge, ENT: Negative for injury, pain, and discharge, Neck: Negative for injury, pain, and swelling, Cardiovascular: Negative for chest pain, palpitations, and edema, Respiratory: Negative for shortness of breath, cough, wheezing, and pleuritic chest pain, Abdomen/GI: Negative for abdominal pain, nausea, vomiting, diarrhea, and constipation, Back: Negative for injury and pain, : Negative for injury, bleeding, discharge, and swelling, MS/Extremity: Negative for injury and deformity, Skin: Negative for injury, rash, and discoloration, Psych: Negative for depression, anxiety, suicide ideation, homicidal ideation, and hallucinations, Allergy/Immunology: Negative for hives, rash, and allergies, Endocrine: Negative for neck swelling, polydipsia, polyuria, polyphagia, and marked weight changes, Hematologic/Lymphatic: Negative for swollen nodes, abnormal bleeding, and unusual bruising, 22:41 Neuro: Positive for speech changes, pt states speech not back to normal per pt, Exam: 22:41 Constitutional: This is a well developed, well nourished patient who is awake, alert, radhika and in no acute distress. Head/Face: Normocephalic, atraumatic. Eyes: Pupils equal round and reactive to light, extra-ocular motions intact. Lids and lashes normal. Conjunctiva and sclera are non-icteric and not injected. Cornea within normal limits. Periorbital areas with no swelling, redness, or edema. ENT: Nares patent. No nasal discharge, no septal abnormalities noted. Tympanic membranes are normal and external auditory canals are clear. Oropharynx with no redness, swelling, or masses, exudates, or evidence of obstruction, uvula midline. Mucous membranes moist. Neck: Trachea midline, no thyromegaly or masses palpated, and no cervical lymphadenopathy. Supple, full range of motion without nuchal rigidity, or vertebral point tenderness. No Meningismus. Chest/axilla: Normal chest wall appearance and motion. Nontender with no deformity. No lesions are appreciated. Cardiovascular: Regular rate and rhythm with a normal S1 and S2. No gallops, murmurs, or rubs. Normal PMI, no JVD. No pulse deficits. Respiratory: Lungs have equal breath sounds bilaterally, clear to auscultation and percussion. No rales, rhonchi or wheezes noted. No increased work of breathing, no retractions or nasal flaring. Abdomen/GI: Soft, non-tender, with normal bowel sounds. No distension or tympany. No guarding or rebound. No evidence of tenderness throughout. Back: No spinal tenderness. No costovertebral tenderness. Full range of motion. Female : Normal external genitalia. Skin: Warm, dry with normal turgor. Normal color with no rashes, no lesions, and no evidence of cellulitis. MS/ Extremity: Pulses equal, no cyanosis. Neurovascular intact. Full, normal range of motion. Neuro: Awake and alert, GCS 15, oriented to person, place, time, and situation. Cranial nerves II-XII grossly intact. Motor strength 5/5 in all extremities. Sensory grossly intact. Cerebellar exam normal. Normal gait. Psych: Awake, alert, with orientation to person, place and time. Behavior, mood, and affect are within normal limits. 23:03 ECG was reviewed by the Attending Physician. [facility] 23:03 Musculoskeletal/extremity: ROM: no acute changes, Circulation is intact in all [facility] extremities. Sensation intact. Compartment Syndrome exam of affected extremity: is normal. Weight bearing: able to fully bear weight, without difficulty, Calves: bilateral le chronic wounds, left leg mild erythema, 23:15 ECG was reviewed by the Attending Physician. [facility] Vital Signs: 22:14 BP 163 / 97; Pulse 88; Resp 20 S; Temp 97.5(O); Pulse Ox 99% on R/A; Weight 98 kg; Pain [facility] 0/10; 22:30 BP 174 / 78; Pulse 78; Resp 19; Pulse Ox 98% ; kd3 23:00 BP 159 / 74; Pulse 82; Resp 19; Pulse Ox 99% ; kd3 23:30 BP 178 / 66; Pulse 92; Resp 16; Pulse Ox 97% ; kd3 23:45 BP 168 / 68; Pulse 68; Resp 19; Pulse Ox 99% ; kd3 08/18 00:00 BP 188 / 84; Pulse 79; Resp 16; Pulse Ox 99% on R/A; kd3 08/17 22:14 Pain Scale: Adult jw NIH Stroke Scale Scores: 08/17 22:30 NIHSS Score: 0 kd3 22:32 NIHSS Score: 0 kd3 22:41 NIHSS Score: 1 [facility] 23:00 NIHSS Score: 0 kd3 23:45 NIHSS Score: 0 kd3 08/18 00:00 NIHSS Score: 0 kd3 [place] Coma Score: 08/17 22:30 Eye Response: spontaneous(4). Motor Response: obeys commands(6). Verbal Response: kd3 oriented(5). Total: 15. 23:30 Eye Response: spontaneous(4). Motor Response: obeys commands(6). Verbal Response: kd3 oriented(5). Total: 15. 23:45 Eye Response: spontaneous(4). Motor Response: obeys commands(6). Verbal Response: kd3 oriented(5). Total: 15. 08/18 00:00 Eye Response: spontaneous(4). Motor Response: obeys commands(6). Verbal Response: kd3 oriented(5). Total: 15. MDM: 08/17 22:27 Patient medically screened. [facility] 22:48 Data reviewed: vital signs, nurses notes, EMS record, lab test result(s), EKG, [facility] radiologic studies, CT scan, plain films. Consideration of Admission/Observation Patient was admitted/placed on observation. Escalation of care including admission/observation considered. I considered the following discharge prescriptions or medication management in the emergency department Medications were administered in the Emergency Department. See MAR. Independent interpretation of the following test(s) in the Emergency Department EKG: See my EKG interpretation above. Test considered but Not performed: MRI: no mri brain. Historians other than the Patient: EMS: ems well informed. Care significantly affected by the following chronic conditions: Congestive Heart Failure, Obesity, anxiety. Counseling: I had a detailed discussion with the patient and/or guardian regarding the historical points, exam findings, and any diagnostic results supporting the discharge/admit diagnosis, lab results, radiology results, the need for further work-up and treatment in the hospital. 08/17 22:30 Order name: Basic Metabolic Panel; Complete Time: 23:42 [facility] 08/17 22:30 Order name: CBC with Diff; Complete Time: 23:28 [facility] 08/17 22:30 Order name: LFT's; Complete Time: 23:42 [facility] 08/17 22:30 Order name: Magnesium; Complete Time: 23:42 [facility] 08/17 22:30 Order name: NT PRO-BNP; Complete Time: 23:42 [facility] 08/17 22:30 Order name: PT-INR; Complete Time: 23:15 [facility] 08/17 22:30 Order name: Troponin HS; Complete Time: 23:42 [facility] 08/17 22:30 Order name: CRP; Complete Time: 23:42 [facility] 08/17 23:18 Order name: Glucose, Ancillary Testing; Complete Time: 23:28 EDMS 08/17 22:30 Order name: XRAY Chest (1 view) [facility] 08/17 22:30 Order name: CT Stroke Brain w/o Contrast [facility] 08/17 22:45 Order name: CT Neck Angio vc1 08/17 22:51 Order name: Head angio EDMS 08/17 22:30 Order name: EKG; Complete Time: :31 [facility] 08/17 22:30 Order name: Cardiac monitoring; Complete Time: 23: [facility] 08/17 22:30 Order name: EKG - Nurse/Tech; Complete Time: 23:31 [facility] 08/17 22:30 Order name: IV Saline Lock; Complete Time: 23: [facility] 08/17 22:30 Order name: Labs collected and sent; Complete Time: : [facility] 08/17 22:30 Order name: O2 Per Protocol; Complete Time: 23: [facility] 08/17 22:30 Order name: O2 Sat Monitoring; Complete Time: : [facility] 08/17 23:06 Order name: Misc. Order: clean and dress lower extremities; Complete Time: :53 [facility] 08/17 23:15 Order name: Misc. Order: ct neg GIVE TNK; Complete Time: :31 [facility] EC:15 Rate is 96 beats/min. Rhythm is regular. QRS Rogers is Normal. IA interval is normal. QT radhika interval is normal. No Q waves. T waves are Normal. No ST changes noted. Clinical impression: NSR w/ Non-specific ST/T Changes and No evidence of ischemia. Interpreted by me. Reviewed by me. Administered Medications: 12:10 Drug: Ativan IVP 0.5 mg IVP once Route: IVP; Site: right antecubital; kd3 23:29 Drug: NS 0.9% IV 1000 ml IV at 1 bolus Per protocol; 1000 mL bolus Route: IV; Rate: 1 kd3 bolus; Site: right antecubital; 23:29 Drug: foLIC Acid IVPB 1 mg IVPB once Route: IVPB; Site: right antecubital; kd3 23:29 Drug: TNK FOR STROKE - Tenecteplase IV (Administer 10 ml NS flush BEFORE and kd3 AFTER tenecteplase) 0.25 mg/kg IV at per protocol once; MAX DOSE 25 mg, IVP over 5 seconds, if ct stroke neg {Co-Signature: jw7 (Dolores Pacheco RN).} Route: IV; Rate: per protocol; Site: right antecubital; 23:58 Drug: Mupirocin Topical Ointment 2 % 1 application Topical once Route: Topical; Site: jw7 affected area; Disposition Summary: 08/18/23 23:42 Transfer Ordered Notes: Transfer Location: [facility] radhika Reason: Higher level of care radhika Condition: Fair radhika Problem: new radhika Symptoms: have improved radhika Accepting Physician: TO [facility](08/19/23 01:08) kd3 Diagnosis - 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 Total time: 50 minutes NIH Stroke Scale - NIH Stroke Score Date: 08/18/2023 Time: 22:30 Total Score = 0 10. Dysarthria (speech clarity - read or repeat words) - 0(Normal) 11. Extinction and Inattention (visual/tactile/auditory/spatial/personal) - 0(No abnormality) 1a. Level of Consciousness (LOC) - 0(Alert) 1b. Level of Consciousness (LOC) (Month \T\ Age) - 0(Both) 1c. LOC Commands (Open \T\ Closes Eyes/Dental Scheduler) - 0(Both) 2. Best Gaze (Lateral Gaze Paresis) - 0(Normal) 3. Visual Field Loss - 0(No visual loss) 4. Facial Palsy - 0(Normal) 5a. Left Arm: Motor (10-second hold) - 0(No drift) 5b. Right Arm: Motor (10-second hold) - 0(No drift) 6a. Left Leg: Motor (5-second hold - always test supine) - 0(No drift) 6b. Right Leg: Motor (5-second hold - always test supine) - 0(No drift) 7. Limb Ataxia (finger/nose \T\ heel/case - test with eyes open) - 0(Absent) 8. Sensory Loss (pinprick arms/legs/face) - 0(Normal) 9. Best Language: Aphasia (description/naming/reading) - 0(No aphasia) Initials: kd3 NIH Stroke Scale - NIH Stroke Score Date: 08/18/2023 Time: 22:32 Total Score = 0 10. Dysarthria (speech clarity - read or repeat words) - 0(Normal) 11. Extinction and Inattention (visual/tactile/auditory/spatial/personal) - 0(No abnormality) 1a. Level of Consciousness (LOC) - 0(Alert) 1b. Level of Consciousness (LOC) (Month \T\ Age) - 0(Both) 1c. LOC Commands (Open \T\ Closes Eyes/Dental Scheduler) - 0(Both) 2. Best Gaze (Lateral Gaze Paresis) - 0(Normal) 3. Visual Field Loss - 0(No visual loss) 4. Facial Palsy - 0(Normal) 5a. Left Arm: Motor (10-second hold) - 0(No drift) 5b. Right Arm: Motor (10-second hold) - 0(No drift) 6a. Left Leg: Motor (5-second hold - always test supine) - 0(No drift) 6b. Right Leg: Motor (5-second hold - always test supine) - 0(No drift) 7. Limb Ataxia (finger/nose \T\ heel/case - test with eyes open) - 0(Absent) 8. Sensory Loss (pinprick arms/legs/face) - 0(Normal) 9. Best Language: Aphasia (description/naming/reading) - 0(No aphasia) Initials: kd3 NIH Stroke Scale - NIH Stroke Score Date: 08/18/2023 Time: 22:41 Total Score = 1 10. Dysarthria (speech clarity - read or repeat words) - 0(Normal) 11. Extinction and Inattention (visual/tactile/auditory/spatial/personal) - 0(No abnormality) 1a. Level of Consciousness (LOC) - 0(Alert) 1b. Level of Consciousness (LOC) (Month \T\ Age) - 0(Both) 1c. LOC Commands (Open \T\ Closes Eyes/Dental Scheduler) - 0(Both) 2. Best Gaze (Lateral Gaze Paresis) - 0(Normal) 3. Visual Field Loss - 0(No visual loss) 4. Facial Palsy - 0(Normal) 5a. Left Arm: Motor (10-second hold) - 0(No drift) 5b. Right Arm: Motor (10-second hold) - 0(No drift) 6a. Left Leg: Motor (5-second hold - always test supine) - 0(No drift) 6b. Right Leg: Motor (5-second hold - always test supine) - 0(No drift) 7. Limb Ataxia (finger/nose \T\ heel/case - test with eyes open) - 0(Absent) 8. Sensory Loss (pinprick arms/legs/face) - 0(Normal) 9. Best Language: Aphasia (description/naming/reading) - 1(Mild to moderate aphasia) Initials: radhika NIH Stroke Scale - NIH Stroke Score Date: 08/18/2023 Time: 23:00 Total Score = 0 10. Dysarthria (speech clarity - read or repeat words) - 0(Normal) 11. Extinction and Inattention (visual/tactile/auditory/spatial/personal) - 0(No abnormality) 1a. Level of Consciousness (LOC) - 0(Alert) 1b. Level of Consciousness (LOC) (Month \T\ Age) - 0(Both) 1c. LOC Commands (Open \T\ Closes Eyes/Dental Scheduler) - 0(Both) 2. Best Gaze (Lateral Gaze Paresis) - 0(Normal) 3. Visual Field Loss - 0(No visual loss) 4. Facial Palsy - 0(Normal) 5a. Left Arm: Motor (10-second hold) - 0(No drift) 5b. Right Arm: Motor (10-second hold) - 0(No drift) 6a. Left Leg: Motor (5-second hold - always test supine) - 0(No drift) 6b. Right Leg: Motor (5-second hold - always test supine) - 0(No drift) 7. Limb Ataxia (finger/nose \T\ heel/case - test with eyes open) - 0(Absent) 8. Sensory Loss (pinprick arms/legs/face) - 0(Normal) 9. Best Language: Aphasia (description/naming/reading) - 0(No aphasia) Initials: kd3 NIH Stroke Scale - NIH Stroke Score Date: 08/18/2023 Time: 23:45 Total Score = 0 10. Dysarthria (speech clarity - read or repeat words) - 0(Normal) 11. Extinction and Inattention (visual/tactile/auditory/spatial/personal) - 0(No abnormality) 1a. Level of Consciousness (LOC) - 0(Alert) 1b. Level of Consciousness (LOC) (Month \T\ Age) - 0(Both) 1c. LOC Commands (Open \T\ Closes Eyes/Dental Scheduler) - 0(Both) 2. Best Gaze (Lateral Gaze Paresis) - 0(Normal) 3. Visual Field Loss - 0(No visual loss) 4. Facial Palsy - 0(Normal) 5a. Left Arm: Motor (10-second hold) - 0(No drift) 5b. Right Arm: Motor (10-second hold) - 0(No drift) 6a. Left Leg: Motor (5-second hold - always test supine) - 0(No drift) 6b. Right Leg: Motor (5-second hold - always test supine) - 0(No drift) 7. Limb Ataxia (finger/nose \T\ heel/case - test with eyes open) - 0(Absent) 8. Sensory Loss (pinprick arms/legs/face) - 0(Normal) 9. Best Language: Aphasia (description/naming/reading) - 0(No aphasia) Initials: kd3 NIH Stroke Scale - NIH Stroke Score Date: 08/19/2023 Time: 00:00 Total Score = 0 10. Dysarthria (speech clarity - read or repeat words) - 0(Normal) 11. Extinction and Inattention (visual/tactile/auditory/spatial/personal) - 0(No abnormality) 1a. Level of Consciousness (LOC) - 0(Alert) 1b. Level of Consciousness (LOC) (Month \T\ Age) - 0(Both) 1c. LOC Commands (Open \T\ Closes Eyes/Dental Scheduler) - 0(Both) 2. Best Gaze (Lateral Gaze Paresis) - 0(Normal) 3. Visual Field Loss - 0(No visual loss) 4. Facial Palsy - 0(Normal) 5a. Left Arm: Motor (10-second hold) - 0(No drift) 5b. Right Arm: Motor (10-second hold) - 0(No drift) 6a. Left Leg: Motor (5-second hold - always test supine) - 0(No drift) 6b. Right Leg: Motor (5-second hold - always test supine) - 0(No drift) 7. Limb Ataxia (finger/nose \T\ heel/case - test with eyes open) - 0(Absent) 8. Sensory Loss (pinprick arms/legs/face) - 0(Normal) 9. Best Language: Aphasia (description/naming/reading) - 0(No aphasia) Initials: kd3 Signatures: Dispatcher [employer] EDPadilla Hensley MD MD cha Doucette, Kyli RN RN kd3 WaitsDolores RN RN jw7 Dolores Pacheco RN jw7 Corrections: (The following items were deleted from the chart) 22:31 22:31 BASIC METABOLIC PANEL+C.LAB.BRZ ordered. EDMS EDMS 22:31 22:31 CBC+H.LAB.BRZ ordered. EDMS EDMS 22:31 22:31 HEPATIC FUNCTION+C.LAB.BRZ ordered. EDMS EDMS 22:31 22:31 MAGNESIUM+C.LAB.BRZ ordered. EDMS EDMS 22:31 22:31 PROBNP+C.LAB.BRZ ordered. EDMS EDMS 22:31 22:31 PROTIME (+INR)+COAG.LAB.BRZ ordered. EDMS EDMS 22:31 22:31 Troponin High Sensitivity+C.LAB.BRZ ordered. EDMS EDMS 22:31 22:31 Urinalysis+U.LAB.BRZ ordered. EDMS EDMS 22:31 22:31 C-REACTIVE PROTEIN+C.LAB.BRZ ordered. EDMS EDMS 22:31 22:31 Neck Angio+CT.RAD.BRZ ordered. EDMA EDMS 23:16 23:03 Rate is 78 beats/min. Rhythm is regular. QRS Rogers is Normal. IA interval radhika is normal. QRS interval is normal. QT interval is normal. No Q waves. T waves are Normal. No ST changes noted. Clinical impression: NSR w/ Non-specific ST/T Changes and No evidence of ischemia. Interpreted by me. Reviewed by me. radhika 23:43 23:42 TO [facility] 08/18 01:08 08/17 23:43 TO [facility] kd3
--- NOTE | 2023-08-18 23:42 | ER ---
Nurse's Notes [facility] Name: Jazz Jones Age: 78 yrs Sex: Female : 1945 Arrival Date: 08/18/2023 Time: 22:11 Bed 6 Private MD: Diagnosis: Cerebral infarction due to unspecified occlusion or stenosis of right middle cerebral artery-LARGE VESSEL OCCLUSION, MID RIGHT ANTERIOR CEREBRAL ARTERY;Aphasia following cerebral infarction;Obesity, unspecified;Venous insufficiency (chronic) (peripheral)-WITH MILD LOCAL CELLULITIS;Other acute kidney failure-INSUFFICENCY Presentation: 08/17 22:14 Chief complaint: Patient states: I started to slur my speech around 2099 while I was on jw7 a call so my daughter called 911. The slurring started to go away around 2114. 22:14 Coronavirus screen: At this time, the client does not indicate any symptoms associated jw7 with coronavirus-19. Ebola Screen: No symptoms or risks identified at this time. Initial Sepsis Screen: Does the patient meet any 2 criteria? No. Patient's initial sepsis screen is negative. Does the patient have a suspected source of infection? No. Patient's initial sepsis screen is negative. Risk Assessment: Do you want to hurt yourself or someone else? Patient reports no desire to harm self or others. Onset of symptoms was August 18, 2023 at 21:00. 22:14 Method Of Arrival: EMS: [facility] 22:14 Acuity: ISABEL 2 jw7 Triage Assessment: 22:14 General: Appears in no apparent distress. comfortable, Behavior is calm, cooperative, jw7 appropriate for age. Pain: Denies pain. EENT: No deficits noted. No signs and/or symptoms were reported regarding the EENT system. 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 Full function Gait is unsteady, Speech is normal, Facial symmetry appears normal, Pupils are PERRLA, Intact Reports Slurred speech at home that started around 2099. Cardiovascular: Heart tones S1 S2 present Capillary refill < 3 seconds Clubbing of nail beds is absent JVD is absent Patient's skin is warm and dry. Respiratory: Airway is patent Trachea midline Respiratory effort is even, unlabored, Respiratory pattern is regular, symmetrical, Breath sounds are clear bilaterally. GI: Abdomen is round non-distended, obese, Bowel sounds present X 4 quads. Abd is soft and non tender X 4 quads. : No deficits noted. No signs and/or symptoms were reported regarding the genitourinary system. Derm: Skin is healthy with good turgor, Skin is dry, Skin is normal, Skin temperature is warm Wound noted right calf, right Achilles, lateral aspect of left calf, left calf, medial aspect of left calf and left case. Musculoskeletal: Circulation, motion, and sensation intact. Range of motion: intact in all extremities, Swelling present in right leg and left leg. Historical: - Allergies: 22:14 Lisinopril; jw7 - Home Meds: 22:14 losartan potassium 50 mg BID [Active]; jw7 - PMHx: 22:14 Anxiety; CHF; Hypertension; jw7 - PSHx: 22:14 None; jw7 - Immunization history:: Adult Immunizations up to date, Pneumococcal vaccine is up to date, Flu vaccine is up to date. - Infectious Disease History:: Denies. - Social history:: Smoking status: Patient denies any tobacco usage or history of. Patient/guardian denies using alcohol, street drugs, IV drugs. Screenin:14 [facility] ED Fall Risk Assessment (Adult) History of falling in the last 3 months, jw7 including since admission No falls in past 3 months (0 pts) Confusion or Disorientation No (0 pts) Intoxicated or Sedated No (0 pts) Impaired Gait Yes (1 pt) Mobility Assist Device Used Yes (1 pt) Altered Elimination No (0 pt) Score/Fall Risk Level 0 - 2 = Low Risk Oriented to surroundings, Maintained a safe environment, Educated pt \T\ family on fall prevention, incl call for assistance when getting out of bed. Abuse screen: Denies threats or abuse. Denies injuries from another. Nutritional screening: No deficits noted. Tuberculosis screening: No symptoms or risk factors identified. Assessment: 22:15 General: Appears in no apparent distress. Behavior is calm, cooperative, Pt presents to [facility] the ED after having an episode of slurred speech that started at 2100. Pt states that the episode only lasted a few minutes and resolved to her baseline. Pt decided to come into the ED anyway because she was worried. Pt denies history of CVA and reports recently firing her PCP. . Pain: Denies pain. Neuro: Level of Consciousness is awake, alert, obeys commands, Oriented to person, place, time, situation. Cardiovascular: Patient's skin is warm and dry. Respiratory: Airway is patent Trachea midline Respiratory effort is even, unlabored, Respiratory pattern is regular, symmetrical. 22:32 General: Provider at the bedside for evaluation. Current NIH is 0. Pt reports being at kd3 baseline. . 22:35 General: Pt is apprehensive about diagnostics and medications. Pt is uncooperative due kd3 to anxiety. Therapeutic communication utilized. Delay in diagnostics. . 22:39 General: Pt transported to CT by this RN vis stretcher. . kd3 23:00 General: EKG performed by tech at bedside . kd3 23:00 Neuro: Level of Consciousness is awake, alert, obeys commands, Oriented to person, kd3 place, time, situation. 23:20 General: Consent signed. PT does not consent to blood transfusion. provider aware. . kd3 23:29 General: TNK administered. . kd3 08/18 00:18 General: Life flight at bedside. Report given. . kd3 Vital Signs: 08/17 22:14 BP 163 / 97; Pulse 88; Resp 20 S; Temp 97.5(O); Pulse Ox 99% on R/A; Weight 98 kg; Pain jw7 0/10; 22:30 BP 174 / 78; Pulse 78; Resp 19; Pulse Ox 98% ; kd3 23:00 BP 159 / 74; Pulse 82; Resp 19; Pulse Ox 99% ; kd3 23:30 BP 178 / 66; Pulse 92; Resp 16; Pulse Ox 97% ; kd3 23:45 BP 168 / 68; Pulse 68; Resp 19; Pulse Ox 99% ; kd3 08/18 00:00 BP 188 / 84; Pulse 79; Resp 16; Pulse Ox 99% on R/A; kd3 08/17 22:14 Pain Scale: Adult jw7 [place] Coma Score: 08/17 22:30 Eye Response: spontaneous(4). Motor Response: obeys commands(6). Verbal Response: kd3 oriented(5). Total: 15. 23:30 Eye Response: spontaneous(4). Motor Response: obeys commands(6). Verbal Response: kd3 oriented(5). Total: 15. 23:45 Eye Response: spontaneous(4). Motor Response: obeys commands(6). Verbal Response: kd3 oriented(5). Total: 15. 08/18 00:00 Eye Response: spontaneous(4). Motor Response: obeys commands(6). Verbal Response: kd3 oriented(5). Total: 15. NIH Stroke Scale Scores: 08/17 22:30 NIHSS Score: 0 kd3 22:32 NIHSS Score: 0 kd3 22:41 NIHSS Score: 1 radhika 23:00 NIHSS Score: 0 kd3 23:45 NIHSS Score: 0 kd3 08/18 00:00 NIHSS Score: 0 kd3 ED Course: 08/17 22:14 Patient arrived in ED. vc1 22:14 Arm band placed on. jw7 22:14 Patient has correct armband on for positive identification. Bed in low position. Call jw7 light in reach. Side rails up X2. Provided Education on: Use of Call Light. 22:25 Padilla Dominique MD is Attending Physician. [facility] 22:45 Triage completed. jw7 22:45 Inserted saline lock: 20 gauge in right antecubital area, using aseptic technique. kd3 Blood collected. 22:45 Initial lab(s) drawn, by wi, sent to lab. kd3 22:50 Taylor Mcqueen, RN is Primary Nurse. kd3 22:57 CT Stroke Brain w/o Contrast In Process Unspecified. EDMS 22:58 CT Neck Angio In Process Unspecified. EDMS 22:58 Head angio In Process Unspecified. EDMS 23:00 EKG done, by histotechnician. reviewed by Padilla Dominique MD. kd3 23:05 Inserted saline lock: 20 gauge in left antecubital area, using aseptic technique. kd3 23:48 initiate contact with marci \T\ [facility] 2348. kmf 23:48 Initiated life flight \T\2348. kmf 23:54 XRAY Chest (1 view) In Process Unspecified. EDMS 08/18 01:44 Pt accepted to [facility] \T\2355. Accepting . Admin approval given by marci [facility] \\[id number]. Number for nurse to nurse report [phone]. Administered Medications: 08/17 12:10 Drug: Ativan IVP 0.5 mg IVP once Route: IVP; Site: right antecubital; kd3 23:29 Drug: NS 0.9% IV 1000 ml IV at 1 bolus Per protocol; 1000 mL bolus Route: IV; Rate: 1 kd3 bolus; Site: right antecubital; 23:29 Drug: foLIC Acid IVPB 1 mg IVPB once Route: IVPB; Site: right antecubital; kd3 23:29 Drug: TNK FOR STROKE - Tenecteplase IV (Administer 10 ml NS flush BEFORE and kd3 AFTER tenecteplase) 0.25 mg/kg IV at per protocol once; MAX DOSE 25 mg, IVP over 5 seconds, if ct stroke neg {Co-Signature: kiet7 (Dolores Pacheco RN).} Route: IV; Rate: per protocol; Site: right antecubital; 23:58 Drug: Mupirocin Topical Ointment 2 % 1 application Topical once Route: Topical; Site: [facility] affected area; Outcome: 23:42 ER care complete, transfer ordered by MD. garrido 08/18 01:08 Patient left the ED. kd3 NIH Stroke Scale - NIH Stroke Score Date: 08/18/2023 Time: 22:30 Total Score = 0 10. Dysarthria (speech clarity - read or repeat words) - 0(Normal) 11. Extinction and Inattention (visual/tactile/auditory/spatial/personal) - 0(No abnormality) 1a. Level of Consciousness (LOC) - 0(Alert) 1b. Level of Consciousness (LOC) (Month \T\ Age) - 0(Both) 1c. LOC Commands (Open \T\ Closes Eyes/Awning Frame Maker) - 0(Both) 2. Best Gaze (Lateral Gaze Paresis) - 0(Normal) 3. Visual Field Loss - 0(No visual loss) 4. Facial Palsy - 0(Normal) 5a. Left Arm: Motor (10-second hold) - 0(No drift) 5b. Right Arm: Motor (10-second hold) - 0(No drift) 6a. Left Leg: Motor (5-second hold - always test supine) - 0(No drift) 6b. Right Leg: Motor (5-second hold - always test supine) - 0(No drift) 7. Limb Ataxia (finger/nose \T\ heel/case - test with eyes open) - 0(Absent) 8. Sensory Loss (pinprick arms/legs/face) - 0(Normal) 9. Best Language: Aphasia (description/naming/reading) - 0(No aphasia) Initials: kd3 NIH Stroke Scale - NIH Stroke Score Date: 08/18/2023 Time: 22:32 Total Score = 0 10. Dysarthria (speech clarity - read or repeat words) - 0(Normal) 11. Extinction and Inattention (visual/tactile/auditory/spatial/personal) - 0(No abnormality) 1a. Level of Consciousness (LOC) - 0(Alert) 1b. Level of Consciousness (LOC) (Month \T\ Age) - 0(Both) 1c. LOC Commands (Open \T\ Closes Eyes/Awning Frame Maker) - 0(Both) 2. Best Gaze (Lateral Gaze Paresis) - 0(Normal) 3. Visual Field Loss - 0(No visual loss) 4. Facial Palsy - 0(Normal) 5a. Left Arm: Motor (10-second hold) - 0(No drift) 5b. Right Arm: Motor (10-second hold) - 0(No drift) 6a. Left Leg: Motor (5-second hold - always test supine) - 0(No drift) 6b. Right Leg: Motor (5-second hold - always test supine) - 0(No drift) 7. Limb Ataxia (finger/nose \T\ heel/case - test with eyes open) - 0(Absent) 8. Sensory Loss (pinprick arms/legs/face) - 0(Normal) 9. Best Language: Aphasia (description/naming/reading) - 0(No aphasia) Initials: kd3 NIH Stroke Scale - NIH Stroke Score Date: 08/18/2023 Time: 22:41 Total Score = 1 10. Dysarthria (speech clarity - read or repeat words) - 0(Normal) 11. Extinction and Inattention (visual/tactile/auditory/spatial/personal) - 0(No abnormality) 1a. Level of Consciousness (LOC) - 0(Alert) 1b. Level of Consciousness (LOC) (Month \T\ Age) - 0(Both) 1c. LOC Commands (Open \T\ Closes Eyes/Awning Frame Maker) - 0(Both) 2. Best Gaze (Lateral Gaze Paresis) - 0(Normal) 3. Visual Field Loss - 0(No visual loss) 4. Facial Palsy - 0(Normal) 5a. Left Arm: Motor (10-second hold) - 0(No drift) 5b. Right Arm: Motor (10-second hold) - 0(No drift) 6a. Left Leg: Motor (5-second hold - always test supine) - 0(No drift) 6b. Right Leg: Motor (5-second hold - always test supine) - 0(No drift) 7. Limb Ataxia (finger/nose \T\ heel/case - test with eyes open) - 0(Absent) 8. Sensory Loss (pinprick arms/legs/face) - 0(Normal) 9. Best Language: Aphasia (description/naming/reading) - 1(Mild to moderate aphasia) Initials: radhika NIH Stroke Scale - NIH Stroke Score Date: 08/18/2023 Time: 23:00 Total Score = 0 10. Dysarthria (speech clarity - read or repeat words) - 0(Normal) 11. Extinction and Inattention (visual/tactile/auditory/spatial/personal) - 0(No abnormality) 1a. Level of Consciousness (LOC) - 0(Alert) 1b. Level of Consciousness (LOC) (Month \T\ Age) - 0(Both) 1c. LOC Commands (Open \T\ Closes Eyes/Awning Frame Maker) - 0(Both) 2. Best Gaze (Lateral Gaze Paresis) - 0(Normal) 3. Visual Field Loss - 0(No visual loss) 4. Facial Palsy - 0(Normal) 5a. Left Arm: Motor (10-second hold) - 0(No drift) 5b. Right Arm: Motor (10-second hold) - 0(No drift) 6a. Left Leg: Motor (5-second hold - always test supine) - 0(No drift) 6b. Right Leg: Motor (5-second hold - always test supine) - 0(No drift) 7. Limb Ataxia (finger/nose \T\ heel/case - test with eyes open) - 0(Absent) 8. Sensory Loss (pinprick arms/legs/face) - 0(Normal) 9. Best Language: Aphasia (description/naming/reading) - 0(No aphasia) Initials: kd3 NIH Stroke Scale - NIH Stroke Score Date: 08/18/2023 Time: 23:45 Total Score = 0 10. Dysarthria (speech clarity - read or repeat words) - 0(Normal) 11. Extinction and Inattention (visual/tactile/auditory/spatial/personal) - 0(No abnormality) 1a. Level of Consciousness (LOC) - 0(Alert) 1b. Level of Consciousness (LOC) (Month \T\ Age) - 0(Both) 1c. LOC Commands (Open \T\ Closes Eyes/Awning Frame Maker) - 0(Both) 2. Best Gaze (Lateral Gaze Paresis) - 0(Normal) 3. Visual Field Loss - 0(No visual loss) 4. Facial Palsy - 0(Normal) 5a. Left Arm: Motor (10-second hold) - 0(No drift) 5b. Right Arm: Motor (10-second hold) - 0(No drift) 6a. Left Leg: Motor (5-second hold - always test supine) - 0(No drift) 6b. Right Leg: Motor (5-second hold - always test supine) - 0(No drift) 7. Limb Ataxia (finger/nose \T\ heel/case - test with eyes open) - 0(Absent) 8. Sensory Loss (pinprick arms/legs/face) - 0(Normal) 9. Best Language: Aphasia (description/naming/reading) - 0(No aphasia) Initials: kd3 NIH Stroke Scale - NIH Stroke Score Date: 08/19/2023 Time: 00:00 Total Score = 0 10. Dysarthria (speech clarity - read or repeat words) - 0(Normal) 11. Extinction and Inattention (visual/tactile/auditory/spatial/personal) - 0(No abnormality) 1a. Level of Consciousness (LOC) - 0(Alert) 1b. Level of Consciousness (LOC) (Month \T\ Age) - 0(Both) 1c. LOC Commands (Open \T\ Closes Eyes/Awning Frame Maker) - 0(Both) 2. Best Gaze (Lateral Gaze Paresis) - 0(Normal) 3. Visual Field Loss - 0(No visual loss) 4. Facial Palsy - 0(Normal) 5a. Left Arm: Motor (10-second hold) - 0(No drift) 5b. Right Arm: Motor (10-second hold) - 0(No drift) 6a. Left Leg: Motor (5-second hold - always test supine) - 0(No drift) 6b. Right Leg: Motor (5-second hold - always test supine) - 0(No drift) 7. Limb Ataxia (finger/nose \T\ heel/case - test with eyes open) - 0(Absent) 8. Sensory Loss (pinprick arms/legs/face) - 0(Normal) 9. Best Language: Aphasia (description/naming/reading) - 0(No aphasia) Initials: kd3 Signatures: Dispatcher [employer] EDMS Padilla Dominique MD MD cha Doucette, Kyli RN RN kd3 Babita Martins RN RN vc1 Dolores Pacheco, RN RN jw7 [facility] Dolores Pacheco RN jw7 Corrections: (The following items were deleted from the chart) 00:26 08/17 22:15 General: Appears in no apparent distress. Behavior is calm, kd3 cooperative, kd3 08/18 00:41 08/17 23:00 Neuro: Level of Consciousness is awake, alert, obeys commands, kd3 Oriented to person, place, time, situation, kd3
[2023-08-18] MEDS ORDERED: MUPIROCIN 2% OINT 22GM TUBE TOP ONE (23:54)
[2023-08-19] MEDS ORDERED: LORazepam 2 MG/ML VIAL ONE (00:09)
[2023-08-19 01:40] VITALS: BP 188/84; TEMP 97.5; O2SAT 99
--- NOTE | 2023-08-20 14:08 | EKG ---
Test Date: 2023-08-18 Test Time: 23:05:19 Food Adviser: [facility] MEASUREMENT RESULTS: Intervals: Rate: 96 [place]: 188 QRSD: 142 QT: 398 QTc: 502 [place]: P: 73 [place]: 188 QRS: 25 T: 79 INTERPRETIVE STATEMENTS: Sinus rhythm Left bundle branch block Abnormal ECG Compared to ECG 11/30/2021 10:46:12 Left bundle-branch block now present Electronically Signed On 08-20-23 14:06:11 CDT by Nahid Alonso
--- NOTE | 2023-08-21 11:10 | RAD REPORT ---
EXAM DESCRIPTION: RAD - Chest Single View - 08/18/2023 11:52 pm CLINICAL HISTORY: The patient is 78 years old and is Female; COUGH TECHNIQUE: Frontal view of the chest. COMPARISON: No relevant prior studies available. FINDINGS: LUNGS: Unremarkable. No consolidation. PLEURAL SPACE: Unremarkable. No pneumothorax. HEART: Unremarkable. No cardiomegaly. MEDIASTINUM: Unremarkable. Normal mediastinal contour. BONES/JOINTS: Multilevel degenerative change of the spine is present. No acute fracture. VASCULATURE: Atherosclerosis of the aorta is present. UPPER ABDOMEN: Unremarkable as visualized. IMPRESSION: No acute cardiopulmonary process. Electronically signed by: Angelica Ling MD 08/19/2023 12:03 AM CDT RP Due to temporary technical issues with the PACS/Fluency reporting system, reports are being signed by the in house radiologist without review as a courtesy to ensure prompt reporting. The interpreting r adiologist is fully responsible for the content of the report.
--- NOTE | 2023-08-21 11:11 | RAD REPORT ---
EXAM DESCRIPTION: CT - Head angio - 08/19/2023 7:06 am ADDENDUM #1 Critical findings were discussed with and acknowledged by Dr. Padilla Dominique MD on 08/18/2023 11:38 PM CDT. Electronically signed by: Eris Richter MD 08/18/2023 11:42 PM CDT RP End of Addendum CLINICAL HISTORY: Aphasia COMPARISON: None. TECHNIQUE: CT HEAD ANGIOGRAPHY WITH IV CONTRAST, CT NECK ANGIOGRAPHY WITH IV CONTRAST on 08/18/2023 1 0:30 PM CDT This exam was performed according to our departmental dose-optimization program, which includes autom ated exposure control, adjustment of the mA and/or kV according to patient size and/or use of iterati ve reconstruction technique. MIP reconstructions were generated. Stenoses are calculated by NASCET criteria. FINDINGS: The visualized aortic arch and origins of the great vessels unremarkable. The common carotid arteries are patent and symmetric bilaterally. No hemodynamically significant stenosis is observed at the common carotid bifurcations or origins of the internal carotid arteries bilaterally. There are extensive calcifications of the proximal right I CA. Vertebral arteries are unremarkable without evidence of pseudoaneurysm, hemodynamically significant s tenosis, or dissection. Intracranially the cavernous segments of the internal carotid arteries are patent and symmetric bilat erally. Vertebral basilar system within normal limits for age. No aneurysm identified within the [place] of [place]. Middle and posterior cerebral circulations are pa tent and symmetric bilaterally. There is suggestion of a short segment occlusion of the mid right ant erior cerebral artery. Dural sinuses are well opacified and without filling defect. IMPRESSION: Unremarkable CT angiogram of the neck for age without dissection or hemodynamically sign ificant stenosis. Short segment occlusion of the mid right anterior cerebral artery. CAROTID STENOSIS REFERENCE USING NASCET CRITERIA: % ICA stenosis = (1 - narrowest ICA diameter/diameter of distal cervical ICA) x 100. Mild - <50% stenosis. Moderate - 50-69% stenosis. Severe - 70-94% stenosis. Near occlusion - 95-99% stenosis. Occluded - 100% stenosis. Electronically signed by: Eris Richter MD 08/18/2023 11:21 PM CDT RP Due to temporary technical issues with the PACS/Fluency reporting system, reports are being signed by the in house radiologist without review as a courtesy to ensure prompt reporting. The interpreting r adiologist is fully responsible for the content of the report.
--- NOTE | 2023-08-21 11:24 | RAD REPORT ---
EXAM DESCRIPTION: CT - Ct Stroke Brain Wo Cont - 08/19/2023 7:05 am CLINICAL HISTORY: STROKE ALERT TECHNIQUE: Axial computed tomography images of the head/brain without intravenous contrast. Sagitt al and coronal reformatted images were created and reviewed. This CT exam was performed using one o r more of the following dose reduction techniques: automated exposure control, adjustment of the mA and/or kV according to patient size, and/or use of iterative reconstruction technique. COMPARISON: No relevant prior studies available. FINDINGS: Brain: Mild cerebral atrophy. Mild bilateral periventricular and subcortical white matte r low attenuation most compatible with chronic microvascular angiopathy. No hemorrhage. Ventricles: Unremarkable. No ventriculomegaly. Bones/joints: Unremarkable. No acute fracture. Soft tissues: Unremarkable. Vasculature: There is atherosclerotic disease of the internal carotid arteries bilaterally and left vertebral artery. Sinuses: Opacification of the left sphenoid sinus with wall thickening which can be seen in the set ting of chronic sinusitis. Mild left posterior ethmoid sinus mucosal thickening. Mastoid air cells: Unremarkable as visualized. No mastoid effusion. IMPRESSION: 1. No acute hemorrhage, focal mass or large territory infarction. 2. Other findings as above. CODE STROKE PROTOCOL CONFERENCE CALL: The findings were verbally discussed via telephone conference w cindy Dominique on 08/18/2023 11:14 PM CDT. The results were acknowledged and understood. Electronically signed by: José Antonio Lew MD 08/18/2023 11:14 PM CDT RP Due to temporary technical issues with the PACS/Fluency reporting system, reports are being signed by the in house radiologist without review as a courtesy to ensure prompt reporting. The interpreting r adiologist is fully responsible for the content of the report.
--- NOTE | 2023-08-21 11:25 | RAD REPORT ---
EXAM DESCRIPTION: CT - Neck Angio - 08/19/2023 7:06 am ADDENDUM #1 Critical findings were discussed with and acknowledged by Dr. Padilla Dominique MD on 08/18/2023 11:38 PM CDT. Electronically signed by: Eris Richter MD 08/18/2023 11:42 PM CDT RP End of Addendum CLINICAL HISTORY: Aphasia COMPARISON: None. TECHNIQUE: CT HEAD ANGIOGRAPHY WITH IV CONTRAST, CT NECK ANGIOGRAPHY WITH IV CONTRAST on 08/18/2023 1 0:30 PM CDT This exam was performed according to our departmental dose-optimization program, which includes autom ated exposure control, adjustment of the mA and/or kV according to patient size and/or use of iterati ve reconstruction technique. MIP reconstructions were generated. Stenoses are calculated by NASCET criteria. FINDINGS: The visualized aortic arch and origins of the great vessels unremarkable. The common carotid arteries are patent and symmetric bilaterally. No hemodynamically significant stenosis is observed at the common carotid bifurcations or origins of the internal carotid arteries bilaterally. There are extensive calcifications of the proximal right I CA. Vertebral arteries are unremarkable without evidence of pseudoaneurysm, hemodynamically significant s tenosis, or dissection. Intracranially the cavernous segments of the internal carotid arteries are patent and symmetric bilat erally. Vertebral basilar system within normal limits for age. No aneurysm identified within the [place] of [place]. Middle and posterior cerebral circulations are pa tent and symmetric bilaterally. There is suggestion of a short segment occlusion of the mid right ant erior cerebral artery. Dural sinuses are well opacified and without filling defect. IMPRESSION: Unremarkable CT angiogram of the neck for age without dissection or hemodynamically sign ificant stenosis. Short segment occlusion of the mid right anterior cerebral artery. CAROTID STENOSIS REFERENCE USING NASCET CRITERIA: % ICA stenosis = (1 - narrowest ICA diameter/diameter of distal cervical ICA) x 100. Mild - <50% stenosis. Moderate - 50-69% stenosis. Severe - 70-94% stenosis. Near occlusion - 95-99% stenosis. Occluded - 100% stenosis. Electronically signed by: Eris Richter MD 08/18/2023 11:21 PM CDT RP Due to temporary technical issues with the PACS/Fluency reporting system, reports are being signed by the in house radiologist without review as a courtesy to ensure prompt reporting. The interpreting r adiologist is fully responsible for the content of the report.
== END 2023-08-19 01:08 | disposition short-term general hospital (02) ==
LOC: ER 22:11
DX: I63.511 Cerebral infarction due to unspecified occlusion or stenosis of right middle cerebral artery (principal); R29.701 NIHSS score 1; I10 Essential (primary) hypertension; I87.2 Venous insufficiency (chronic) (peripheral); L03.90 Cellulitis, unspecified; N17.8 Other acute kidney failure; E66.9 Obesity, unspecified; Z88.8 Allergy status to other drugs, medicaments and biological substances
CPT/HCPCS: 92977; 93005; 85025; 80048; 36415; 83735; 85610; 82565; 82947; 80076; 84484; 83880; 86140; 70496; 70498; 70450; 71045; 96375; 96374; 99285; Q9967; J3101; J7030

== ENCOUNTER 2023-09-27 11:53 | Inpatient (IN) | payer OTHER ==
[2023-09-27 13:16] LABS: SARS-CoV-2 Antigen CONTROL BLUE LINE VIS/BG OK; SARS-CoV-2 Antigen Rapid Res Positive (Negative)
[2023-09-27 13:34] LABS: Absolute Eosinophils 0.1 K/uL (0-0.5); Absolute Lymphocytes (CBC) 1.1 K/uL (0.7-4.9); Absolute Monocytes 1.6 K/uL (0.1-1.3); Absolute Neutrophil 8.6 K/uL (1.8-8.0); Basophils % 0.4 % (0-1.3); Eosinophils % 0.5 % (0-4.4); Hematocrit 40.8 % (36.0-45.0); Hemoglobin 13.1 g/dL (12.0-15.0); MCH 27.8 pg (27.0-35.0); MCHC 32.1 g/dL (32.0-36.0); MCV 86.7 fL (80-100); MPV 9.6 fL (7.6-11.3); Monocytes % 13.7 % (3.3-12.3); Neutrophils % 75.4 % (41.7-73.7); Platelets 253 thou/uL (152-406); Red Cell Distribution Width 17.5 % (12.1-15.2)
[2023-09-27 13:52] LABS: Albumin 3.1 g/dL (3.4-5.0); Albumin/Globulin Ratio 0.6 (1.1-1.8); Anion Gap 9.3 mEq/L (5.0-15.0); Bilirubin Total 0.9 mg/dL (0.2-1.0); Globulin 4.9 g/dL (2.3-3.5); Potassium 3.3 mEq/L (3.5-5.1)
--- NOTE | 2023-09-27 14:21 | RAD REPORT ---
EXAM DESCRIPTION: RAD - Chest Single View - 09/27/2023 2:13 pm CLINICAL HISTORY: low o2 COMPARISON: <Comparisons> FINDINGS: Lines: None. Lungs: No evidence of edema or pneumonia. Pleural: No significant pleural effusions or pneumothorax. Cardiac: The heart size is within normal limits. Mediastinum: Within normal limits. Bones: No acute fractures. Other: None IMPRESSION: No acute cardiopulmonary disease.
[2023-09-27 14:36] LABS: PTT, Activated Partial Thromb 28.1 SECONDS (24.3-36.9); Protime INR 1.17
[2023-09-27] MEDS ORDERED: NA CHLORIDE 0.9% 250 ML ONE (15:12)
--- NOTE | 2023-09-27 15:14 | RAD REPORT ---
EXAM DESCRIPTION: CTAbdomen Pelvis Wo Contrast - 09/27/2023 2:46 pm CLINICAL HISTORY: abd pain COMPARISON: CT ABD PELVIS W CONTRAST dated 10/08/2012 TECHNIQUE: CT of the abdomen and pelvis was performed. All CT scans are performed using dose optimization technique as appropriate and may include automated exposure control or mA/KV adjustment according to patient size. FINDINGS: Lower chest: Coronary calcifications. Aortic valve calcifications. Liver: No acute abnormality or suspicious lesions. Biliary: Cholelithiasis. Stomach: No significant focal abnormality. Duodenum: No significant focal abnormality. Pancreas: Pancreatic atrophy. Spleen: No significant abnormality. Adrenal: No suspicious lesions. Kidney/ureter: No hydronephrosis. No renal calculi. Retroperitoneum: No retroperitoneal adenopathy. Vascular: No aneurysm. Atherosclerosis Bowel: Moderate rectal stool. Normal appendix.. Peritoneum: No ascites or free air. Bladder: Grossly unremarkable. Reproductive: No adnexal masses. Bones: Anterolisthesis of L5 on S1. Multilevel degenerative changes are present in the spine. Pars de fects at L5. Other: n/a IMPRESSION: No acute intra-abdominal or pelvic finding.
--- NOTE | 2023-09-27 15:53 | P.HP ---
Certification for Inpatient Patient admitted to: Observation With expected LOS: <2 Midnights Patient will require the following post-hospital care: None Practitioner: I am a practitioner with admitting privileges, knowledge of patient current condition, hospital course, and medical plan of care. Services: Services provided to patient in accordance with Admission requirements found in Title 42 Section 412.3 of the Code of Federal Regulations Patient History Date of Service: 09/27/23 Reason for admission: COVID positive, lethargic History of Present Illness: Jazz Jones is a 78 year old female with Pmhx anxiety, CHF, hypertension, cerebrovascular accident (non-verbal and right sided deficit) who presents to the ED with chief complaint of altered mental status and decreased responsiveness in the last few days. Daughter does report that she is not significantly different than her baseline, nonverbal. Daughter reports having diarrhea over the weekend and not to being given Lasix daily. Initial vital :BP 159 / 60; Pulse 69; Resp 16; Temp 97.9; Pulse Ox 95% Laboratory evaluation potassium 3.3, BUN/creatinine 90/1.65, serum glucose 132, BNP 2768, COVID positive CT abdomen pelvis reports: "No acute intra-abdominal or pelvic finding. Anterolisthesis of L5 on S1, multilevel degenerative changes are present in the spine, pars defects at L5." Chest x-ray reports "No acute cardiopulmonary disease." Jazz will be admitted to hospitalist service for further evaluation and treatment. Allergies lisinopril Adverse Reaction (Intermediate, Verified 04/04/23 12:35) continuous cough Home Medications: Amlodipine Besylate 10 mg PO DAILY 02/03/19 Losartan Potassium 50 mg PO DAILY AT SUPPER 02/03/19 Atorvastatin Calcium [Lipitor] 80 mg PO BEDTIME 09/27/23 Baclofen 10 mg PO TID 09/27/23 Carvedilol [Coreg] 12.5 mg PO BID 09/27/23 Clopidogrel Bisulfate [Plavix] 75 mg PO DAILY 09/27/23 Escitalopram [Lexapro] 10 mg PO DAILY 09/27/23 Furosemide 40 mg PO DAILY 09/27/23 Hydralazine HCl 75 mg PO TID 09/27/23 Methylphenidate HCl 5 mg PO BID 09/27/23 - Past Medical/Surgical History Diabetic: No -: CVA -: HTN -: anxiety -: CHF Past Surgical History: Reviewed- Non-Contributory Psychosocial/ Personal History: Patient is - Family History Father -: Heart disease, Hypertension - Social History Smoking Status: Never smoker Alcohol use: No CD- Drugs: No Caffeine use: Yes Review of Systems is unable to be obtained Physical Examination - Physical Exam General: Alert, In no apparent distress, Other (Awake, nonverbal) HEENT: Atraumatic, Normocephalic, PERRLA Neck: Supple, 2+ carotid pulse no bruit Respiratory: Clear to auscultation bilaterally, Normal air movement Cardiovascular: Normal pulses, Regular rate/rhythm, Normal S1 S2 Capillary refill: <2 Seconds Gastrointestinal: Soft and benign, Distended (obese) Musculoskeletal: No clubbing Integumentary: No rashes Neurological: Other (right sided deficit, nonverbal), Abnormal speech, Abnormal tone - Studies Laboratory Data (last 24 hrs) 09/27/23 09/27/23 09/27/23 13:20 13:20 13:20 WBC 11.50 H Hgb 13.1 Hct 40.8 Plt Count 253 PT 13.0 H INR 1.17 APTT 28.1 Sodium 147 H Potassium 3.3 L BUN 91 H Creatinine 1.65 H Glucose 132 H Total Bilirubin 0.9 AST 30 ALT 27 Alkaline Phosphatase 92 Assessment and Plan - Plan Assessment and plan Fluid volume overload secondary to CHF exacerbation -Chest x-ray reports "No acute cardiopulmonary disease." -BNP 2768 -Lasix home dose -Intake output records -Daily weights Hypokalemia -Potassium 3.3 -Replacement protocol in place COVID-positive -Isolation precautions -Not a candidate for remdesivir ARIEL -BUN/creatinine 90/1.65 -Gentle IV fluids given in the ED Decreased PO intake -speech therapy consulted History of anxiety History of hypertension History of cerebrovascular accident -Continue home medication Anterolithesis of L5 on S1 multilevel degenerative changes in spine Pas defects at L5 -Follow up outpatient DVT PPx SCDs full code LOS 24 hour OBs Discharge Plan: Home Plan to discharge in: 24 Hours - Advance Directives Does patient have a Living Will: No Does patient have a Durable POA for Healthcare: Yes
[2023-09-27] MEDS ORDERED: HYDRALAZINE HCL 20 MG/ML VIAL IV PRN (16:37)
[2023-09-27] MEDS ORDERED: ACETAMINOPHEN 325 MG/SUPP PR PRN ×2 (16:39→16:40)
--- NOTE | 2023-09-27 17:15 | ER ---
Nurse's Notes [facility] Name: Jazz Jones Age: 78 yrs Sex: Female : 1945 Arrival Date: 09/27/2023 Time: 11:53 Bed 3 Private MD: Diagnosis: SARS-associated coronavirus as the cause of diseases classified elsewhere;Muscle weakness (generalized);Acute kidney failure, unspecified;Dehydration Presentation: 09/26 11:55 Chief complaint: EMS states: HOME HEALTH CALLED FOR ALLEGED LOW SPO2, NORMAL EN ROUTE. bp Coronavirus screen: At this time, the client does not indicate any symptoms associated with coronavirus-19. Ebola Screen: No symptoms or risks identified at this time. Initial Sepsis Screen: Does the patient meet any 2 criteria? No. Patient's initial sepsis screen is negative. Does the patient have a suspected source of infection? No. Patient's initial sepsis screen is negative. Risk Assessment: Do you want to hurt yourself or someone else? Patient reports no desire to harm self or others. Onset of symptoms is unknown. 11:55 Method Of Arrival: EMS: [facility] bp 11:55 Acuity: ISABEL 3 bp Triage Assessment: 11:56 General: Appears in no apparent distress. Behavior is NON-VERBAL. Pain: Unable to use bp pain scale. Does not appear to understand pain scale. EENT: No deficits noted. Neuro: Level of Consciousness is awake, Oriented to none Promotion Writer are weak on right. Cardiovascular: Rhythm is sinus rhythm. Respiratory: No deficits noted. GI: No signs and/or symptoms were reported involving the gastrointestinal system. : No signs and/or symptoms were reported regarding the genitourinary system. Derm: No deficits noted. Historical: - Allergies: 11:56 Lisinopril; bp - PMHx: 11:56 Anxiety; CHF; Hypertension; Cerebrovascular accident; bp - Immunization history:: Adult Immunizations up to date. - Infectious Disease History:: Denies. - Social history:: Smoking status: Patient denies any tobacco usage or history of. - Family history:: not pertinent. - Hospitalizations: : No recent hospitalization is reported. Screenin:58 [facility] ED Fall Risk Assessment (Adult) History of falling in the last 3 months, bp including since admission No falls in past 3 months (0 pts) Confusion or Disorientation Yes (5 pts) Intoxicated or Sedated No (0 pts) Impaired Gait No (0 pts) Mobility Assist Device Used No (0 pt) Altered Elimination No (0 pt) Score/Fall Risk Level 3 or more points = High Risk Oriented to surroundings, Maintained a safe environment. Abuse screen: Denies threats or abuse. Denies injuries from another. Nutritional screening: No deficits noted. Tuberculosis screening: No symptoms or risk factors identified. Assessment: 11:58 General: SEE TRIAGE NOTE. bp 13:22 Reassessment: No changes from previously documented assessment. Patient is alert, bp oriented x 3, equal unlabored respirations, skin warm/dry/pink. 15:07 Reassessment: Patient appears in no apparent distress at this time. Patient is alert, bp oriented x 3, equal unlabored respirations, skin warm/dry/pink. 16:00 Reassessment: Patient appears in no apparent distress at this time. Patient and/or bp family updated on plan of care and expected duration. Pain level reassessed. Patient is alert, oriented x 3, equal unlabored respirations, skin warm/dry/pink. 16:57 Reassessment: REPORT FAXED TO 407. bp Vital Signs: 11:55 BP 159 / 60; Pulse 69; Resp 16; Temp 97.9; Pulse Ox 95% ; bp 13:20 BP 155 / 59; Pulse 66; Resp 16; Pulse Ox 92% ; bp 15:05 BP 161 / 102; Pulse 66; Resp 19; Pulse Ox 93% ; bp 16:00 BP 179 / 59; Pulse 77; Resp 16; Pulse Ox 95% ; bp ED Course: 11:54 Patient arrived in ED. rn 11:54 Elian Mccormack MD is Attending Physician. rn 11:55 Paul Rodrigues, RN is Primary Nurse. bp 11:56 Triage completed. bp 11:56 Arm band placed on. bp 11:58 Patient has correct armband on for positive identification. bp 12:35 Initial lab(s) drawn, by me, sent to lab. First set of blood cultures drawn by me, bp Second set of blood cultures drawn by me, EKG done, by ED staff, reviewed by Elian Mccormack MD COVID swab sent to lab. 12:41 Inserted saline lock: 22 gauge in right hand, using aseptic technique. Blood collected. bp Flushed with 10 mL NS. 13:22 Lab(s) recollected, by me, sent to lab. bp 14:15 Chest Single View In Process Unspecified. EDMS 14:48 Abdomen In Process Unspecified. EDMS 15:34 Kevin Blue is Hospitalizing Provider. rn 16:33 Pulse ox on. NIBP on. Door closed. Noise minimized. Lights dimmed. Warm blanket given. ko1 Pillow given. Repositioned patient. Cleaned of incontinence. 16:57 No provider procedures requiring assistance completed. Patient admitted, IV remains in bp place. Administered Medications: 15:14 Drug: NS 0.9% IV 250 ml IV at calculated rate once Route: IV; Rate: calculated rate; bp Site: right hand; 16:54 Follow up: IV Status: Completed infusion; IV Intake: 250ml bp Medication: 11:58 VIS not applicable for this client. bp Intake: 16:54 IV: 250ml; Total: 250ml. bp Outcome: 15:34 Decision to Hospitalize by Provider. rn 16:57 Admitted to Med/surg accompanied by tech, family with patient, via stretcher, room 407, bp with chart, 16:57 Condition: stable 16:57 Instructed on the need for admit, 20:10 Patient left the ED. vc1 Signatures: Dispatcher [employer] EDMS Elian Mccormack MD MD rn Peltier, Brian, RN RN bp Babita Martins RN RN vc1 Tammy Raymundo, RN RN ko1
--- NOTE | 2023-09-27 17:15 | EDPHYS ---
Physician Documentation [facility] Name: Jazz Jones Age: 78 yrs Sex: Female : 1945 Arrival Date: 09/27/2023 Time: 11:53 Bed 3 Private MD: ED Physician Elian Mccormack HPI: 09/26 12:29 This 78 yrs old Female presents to ER via EMS with complaints of diarrhea, AMS.rn 12:29 The patient presents with decreased responsiveness. Onset: The symptoms/episode rn began/occurred 4 day(s) ago. Possible causes: unknown. Current symptoms: In the emergency department the patient's symptoms are unchanged from the initial presentation. The patient has not experienced similar symptoms in the past. Daughter reports altered mental status and decreased responsiveness that began a few days ago. Had diarrhea, nonbloody, over the weekend. No fever or chills. No vomiting. Daughter also reports nonproductive cough. Patient was not receiving her Lasix on a daily basis. EMS reported oxygen status initially about 90%, came up to 96% without intervention. Patient has subacute stroke with residual right-sided deficits and inability to communicate.. Historical: - Allergies: 11:56 Lisinopril; bp - PMHx: 11:56 Anxiety; CHF; Hypertension; Cerebrovascular accident; bp - Immunization history:: Adult Immunizations up to date. - Infectious Disease History:: Denies. - Social history:: Smoking status: Patient denies any tobacco usage or history of. - Family history:: not pertinent. - Hospitalizations: : No recent hospitalization is reported. ROS: 12:29 Unable to obtain ROS due to altered mental status, previous stroke, rn Exam: 12:29 Constitutional: This is a well developed, well nourished patient who is awake, alert, rn and in no acute distress. Head/Face: Normocephalic, atraumatic. ENT: dry MM, no stridor Cardiovascular: Regular rate and rhythm. No pulse deficits. Respiratory: Mild tachypnea with coarse bilateral breath sounds. No retractions Abdomen/GI: soft, non-tender, non-distended MS/ Extremity: Pulses equal, no cyanosis. Neuro: Awake and alert, + right sided stiffness and weakness. Unable to communicate. 16:43 ECG was reviewed by the Attending Physician. rn Vital Signs: 11:55 BP 159 / 60; Pulse 69; Resp 16; Temp 97.9; Pulse Ox 95% ; bp 13:20 BP 155 / 59; Pulse 66; Resp 16; Pulse Ox 92% ; bp 15:05 BP 161 / 102; Pulse 66; Resp 19; Pulse Ox 93% ; bp 16:00 BP 179 / 59; Pulse 77; Resp 16; Pulse Ox 95% ; bp MDM: 11:54 Patient medically screened. rn 15:33 Differential Diagnosis: electrolyte abnormality, pneumonia, UTI, volume depletion, rn COVID, pneumonia. Data reviewed: vital signs, nurses notes, lab test result(s), radiologic studies, CT scan, plain films, and as a result, I will admit patient. Consideration of Admission/Observation Patient was admitted/placed on observation. Escalation of care including admission/observation considered. Counseling: I had a detailed discussion with the patient and/or guardian regarding the historical points, exam findings, and any diagnostic results supporting the discharge/admit diagnosis, lab results, radiology results, the need for further work-up and treatment in the hospital. Response to treatment: There is no appreciated change of the patient's symptoms at this time. 09/26 11:56 Order name: Blood Culture Adult (2) rn 09/26 11:56 Order name: CBC with Diff rn 09/26 11:56 Order name: CMP rn 09/26 11:56 Order name: Lactate w/ 2H reflex if indic. rn 09/26 11:56 Order name: Protime (+inr) rn 09/26 11:56 Order name: Ptt, Activated rn 09/26 11:56 Order name: Urinalysis w/ reflexes rn 09/26 11:56 Order name: BNP rn 09/26 12:54 Order name: Comprehensive Metabolic Panel; Complete Time: 14:10 EDMS 09/26 12:54 Order name: NT PRO-BNP; Complete Time: 14:10 EDMS 09/26 12:54 Order name: Lactate w/ 2H reflex if indic.; Complete Time: 13:50 EDMS 09/26 12:54 Order name: SARS-COV-2 Antigen Rapid; Complete Time: 13:18 EDMS 09/26 12:54 Order name: CBC with Automated Diff; Complete Time: 13:50 EDMS 09/26 12:56 Order name: Blood Culture EDSC 09/26 12:56 Order name: Protime (+INR); Complete Time: 14:58 EDMS 08 12:56 Order name: PTT, Activated Partial Thromb; Complete Time: 14:58 EDMS 08 12:56 Order name: Blood Culture EDMS 09/26 16:38 Order name: T4 Free EDMS 09/26 16:38 Order name: Thyroid Stimulating Hormone EDMS 09/26 16:38 Order name: Urinalysis w/ reflexes EDMS 09/26 16:38 Order name: Basic Metabolic Panel EDMS 09/26 16:38 Order name: Basic Metabolic Panel EDMS 09/26 16:38 Order name: CBC with Automated Diff EDMS 09/26 16:38 Order name: CBC with Automated Diff EDMS 09/26 16:38 Order name: Magnesium EDMS 09/26 16:38 Order name: Magnesium EDMS 09/26 16:38 Order name: Phosphorus EDMS 09/26 16:38 Order name: Phosphorus EDMS 09/26 13:56 Order name: Chest Single View; Complete Time: 14:58 EDMS 09/26 14:29 Order name: Abdomen ; Complete Time: 15:28 EDMS 09/26 16:38 Order name: Speech Therapy Consult EDMS 09/26 11:56 Order name: Accucheck; Complete Time: 12:02 rn 08/06 11:56 Order name: Cardiac monitoring; Complete Time: 11:59 rn 09/26 11:56 Order name: EKG - Nurse/Tech; Complete Time: 13:20 rn 08/06 11:56 Order name: IV Saline Lock - Large Bore; Complete Time: 12:41 rn 08/06 11:56 Order name: Labs collected and sent; Complete Time: 12:41 rn 06 11:56 Order name: O2 Per Protocol; Complete Time: 11:59 rn 06 11:56 Order name: O2 Sat Monitoring; Complete Time: 11:59 rn 06 11:56 Order name: Vital Signs; Complete Time: 11:59 rn 06 12:53 Order name: Labs - recollect needed: hemolyzed specimen. recollect all blood; Complete eb Time: 13:07 EC:43 Rate is 65 beats/min. Rhythm is regular. QRS [place] is Normal. [place] interval is normal. QRS rn interval is normal. QT interval is normal. No Q waves. T waves are Normal. No ST changes noted. Clinical impression: NSR w/ Non-specific ST/T Changes. Interpreted by me. Reviewed by me. Administered Medications: 15:14 Drug: NS 0.9% IV 250 ml IV at calculated rate once Route: IV; Rate: calculated rate; bp Site: right hand; 16:54 Follow up: IV Status: Completed infusion; IV Intake: 250ml bp Disposition Summary: 09/27/23 15:34 Hospitalization Ordered Notes: Hospitalization Status: Inpatient Admission rn Provider: Kevin Blue rn Location: Telemetry/MedSurg (Inpatient) rn Condition: Stable rn Problem: new rn Symptoms: are unchanged rn Bed/Room Type: Standard rn Room Assignment: 407(09/27/23 16:47) eb Diagnosis - SARS-associated coronavirus as the cause of diseases classified elsewhere rn - Muscle weakness (generalized) rn - Acute kidney failure, unspecified rn - Dehydration rn Forms: - Medication Reconciliation Form rn - SBAR form rn - Leadership Thank You Letter rn Signatures: Dispatcher [employer] EDMS Elian Mccormack MD MD rn Peltier, Brian, RN RN bp Botello, Elizabeth eb Corrections: (The following items were deleted from the chart) 14:29 13:56 Abdomen ordered. EDMS EDMS 16:47 15:34 rn eb 16:59 16:59 BLOOD CULTURE*+BA.LAB.BRZ ordered. EDMS EDMS 16:59 16:59 CBC+H.LAB.BRZ ordered. EDMS EDMS 16:59 16:59 COMPREHENSIVE METABOLIC PANEL+C.LAB.BRZ ordered. EDMS EDMS 16:59 16:59 LACTATE+C.LAB.BRZ ordered. EDMS EDMS 16:59 16:59 PROTIME (+INR)+COAG.LAB.BRZ ordered. EDMS EDMS 16:59 16:59 PTT, ACTIVATED+COAG.LAB.BRZ ordered. EDMS EDMS 16:59 16:59 Urinalysis+U.LAB.BRZ ordered. EDMS EDMS 16:59 16:59 PROBNP+C.LAB.BRZ ordered. EDMS EDMS 16:59 16:59 SARS-COV-2 Antigen Rapid+I.LAB.BRZ ordered. EDMS EDMS 16:59 16:59 Chest Single View+RAD.RAD.BRZ ordered. EDMS EDMS 17:01 17:01 Abdomen Pelvis W Con+CT.RAD.BRZ ordered. EDMS EDMS
[2023-09-27 19:32] LABS: Thyroid Stimulating Hormone 0.588 uIU/mL (0.358-3.740)
[2023-09-27] MEDS ORDERED: BACLOFEN 10 MG TAB PO SCH (21:00)
[2023-09-27 22:36] LABS: Specific Gravity 1.018 (1.005-1.030); Sqamous Epithelial <5 /HPF (None Seen); Urine Bacteria >50 /HPF (<20); Urine Bilirubin NEGATIVE (Negative); Urine Blood 1+ (Negative); Urine Clarity Extremely Turbid (Clear); Urine Color Light-Yellow (Yellow); Urine Culture Reflex Order NOT NEEDED; Urine Glucose NEGATIVE (Negative); Urine Ketones NEGATIVE (Negative); Urine Microscopic Reflex YN ORDER UMIC; Urine Nitrite NEGATIVE (Negative); Urine Protein 1+ (Negative); Urine RBC None Seen /HPF (None Seen); Urine Urobilinogen Normal (Normal); Urine WBC <5 /HPF (<5); Urine pH 5.5 (5.0-7.0)
[2023-09-27] MEDS: NA CHLORIDE 0.9% 500 ML ONE (22:36)
[2023-09-27] MEDS: KCL 20 MEQ/100 mL IVPB 20 MEQ/100 ML BAG IV SCH (22:39)
[2023-09-27 23:37] VITALS: BMI 40.4
[2023-09-28 06:37] LABS: Absolute Eosinophils 0.1 K/uL (0-0.5); Absolute Lymphocytes (CBC) 0.9 K/uL (0.7-4.9); Absolute Monocytes 1.5 K/uL (0.1-1.3); Absolute Neutrophil 5.3 K/uL (1.8-8.0); Basophils % 0.3 % (0-1.3); Eosinophils % 0.8 % (0-4.4); Hematocrit 40.8 % (36.0-45.0); Hemoglobin 13.2 g/dL (12.0-15.0); MCH 28.3 pg (27.0-35.0); MCHC 32.3 g/dL (32.0-36.0); MCV 87.5 fL (80-100); MPV 9.3 fL (7.6-11.3); Monocytes % 19.6 % (3.3-12.3); Neutrophils % 67.3 % (41.7-73.7); Platelets 224 thou/uL (152-406); RBC Red Blood Cell Count 4.67 M/uL (3.86-4.86); Red Cell Distribution Width 17.4 % (12.1-15.2)
[2023-09-28 06:55] LABS: Anion Gap 8.8 mEq/L (5.0-15.0); Magnesium 3.1 mg/dL (1.6-2.4); Potassium 3.8 mEq/L (3.5-5.1)
[2023-09-28 07:59] LABS: Differential Total Cells Count 100; Lymphocytes 17 % (15-42); Monocytes 9 % (0-10); Segmented Neutrophils 74 % (40-80)
[2023-09-28 08:00] LABS: Blood Morphology Comment NOT SEEN (NOT SEEN); Platelet Estimate ADEQ
[2023-09-28] MEDS: carvediloL 12.5 MG TAB PO SCH (08:00)
--- NOTE | 2023-09-28 08:32 | P.PN ---
Date of Service: 09/28/23 Subjective Seems more awake today Daughter reports she is at her baseline ROS 10 point ROS as noted above, otherwise negative Physical Exam General: Awake, Alert, NAD, Other (nonverbal) HEENT: Atraumatic, Normocephalic, PERRLA Neck: Supple, 2+ carotid pulse no bruit Respiratory: Clear to auscultation bilaterally, Normal air movement, on RA Cardiovascular: Normal pulses, NSR, Normal S1 S2 Capillary refill: <2 Seconds Gastrointestinal: Soft and benign on palpation, NT, Distended (obese) Musculoskeletal: No clubbing Integumentary: No rashes Neurological: Other (right sided deficit, nonverbal), Abnormal speech, Abnormal tone Vitals Reviewed Problem list Mild Leukocytosis CHF exacerbation Hypokalemia COVID-positive ARIEL Decreased PO intake History of anxiety History of hypertension History of cerebrovascular accident Anterolithesis of L5 on S1 multilevel degenerative changes in spine Pas defects at L5 Assessment and Plan Mild Leukocytosis Hypernatremia Altered mental status 2/2 Dehydration -Chest x-ray reports "No acute cardiopulmonary disease." -BNP 2768, Na 147/150 -Lasix on hold -Intake output records -Daily weights -D5W for 6 hours, repeat BMP with Na 150 Hypokalemia -Potassium 3.8/4.0 -Replacement protocol in place COVID-positive -Isolation precautions -Not a candidate for paxlovid ARIEL -BUN/creatinine 75/1.21, 62/1.10 -Gentle IV fluids given in the ED Decreased PO intake -speech therapy consulted History of anxiety History of hypertension History of cerebrovascular accident -Continue home medication Anterolithesis of L5 on S1 multilevel degenerative changes in spine Pas defects at L5 -Follow up outpatient DVT PPx SCDs full code LOS 24 hour OBs
[2023-09-28] MEDS: AMLODIPINE 10 MG TAB PO SCH (09:00)
[2023-09-28] MEDS: FUROSEMIDE 40 MG TABLET PO SCH (09:00)
[2023-09-28] MEDS: HYDRALAZINE HCL 25 MG TABLET PO SCH (09:00)
[2023-09-28] MEDS: ESCITALOPRAM 20 MG TAB PO SCH (09:00)
[2023-09-28] MEDS ORDERED: CLOPIDOGREL 75 MG TABLET PO SCH (09:00)
[2023-09-28] MEDS: METHYLPHENIDATE HCL 5 MG PO SCH (09:00)
[2023-09-28] MEDS: KCL 20 MEQ/100 mL IVPB 20 MEQ/100 ML BAG IV SCH (09:40)
[2023-09-28] MEDS: D5W 1,000 ML IV SCH (09:41)
[2023-09-28] MEDS: LOSARTAN POTASSIUM 50 MG TABLET PO SCH (16:58)
[2023-09-28] MEDS: ATORVASTATIN 80 MG TAB PO SCH (21:11)
[2023-09-29 06:28] LABS: Absolute Eosinophils 0.1 K/uL (0-0.5); Absolute Lymphocytes (CBC) 1.5 K/uL (0.7-4.9); Absolute Monocytes 1.4 K/uL (0.1-1.3); Absolute Neutrophil 4.3 K/uL (1.8-8.0); Basophils % 0.3 % (0-1.3); Eosinophils % 1.3 % (0-4.4); Hematocrit 39.7 % (36.0-45.0); Hemoglobin 12.9 g/dL (12.0-15.0); Lymphocytes % 20.3 % (15.3-44.8); MCH 28.2 pg (27.0-35.0); MCHC 32.5 g/dL (32.0-36.0); MCV 86.7 fL (80-100); MPV 8.8 fL (7.6-11.3); Monocytes % 19.2 % (3.3-12.3); Neutrophils % 58.9 % (41.7-73.7); Nucleated Red Blood Cells % 0.1 % (0-0); Platelets 227 thou/uL (152-406); RBC Red Blood Cell Count 4.58 M/uL (3.86-4.86); Red Cell Distribution Width 17.7 % (12.1-15.2)
[2023-09-29 06:30] LABS: Anion Gap 8.9 mEq/L (5.0-15.0); Magnesium 2.6 mg/dL (1.6-2.4); Phosphorus 2.5 mg/dL (2.5-4.9); Potassium 3.9 mEq/L (3.5-5.1)
[2023-09-29] MEDS: D5W 1,000 ML IV SCH (10:33)
--- NOTE | 2023-09-29 13:13 | EKG ---
Test Date: 2023-09-27 Test Time: 13:17:38 Body Shop Manager: BP MEASUREMENT RESULTS: Intervals: Rate: 65 NH: 174 QRSD: 72 QT: 440 QTc: 457 [place]: P: 74 NH: 174 QRS: 50 T: 79 INTERPRETIVE STATEMENTS: Normal sinus rhythm Septal infarct, age undetermined Abnormal ECG Compared to ECG 08/18/2023 23:05:19 Myocardial infarct finding now present Left bundle-branch block no longer present Electronically Signed On 09-29-23 13:06:32 CDT by Tiago Woo
[2023-09-29 16:10] LABS: Anion Gap 7.9 mEq/L (5.0-15.0); Potassium 3.9 mEq/L (3.5-5.1)
--- NOTE | 2023-09-29 19:04 | P.PN ---
Date of Service: 09/29/23 Subjective Awake and making eye contact no new complaints Increased IVF rate, Sodium improved through out the day ROS 10 point ROS as noted above, otherwise negative Physical Exam General: Awake, Alert, NAD, Other (nonverbal), making eye contact HEENT: Atraumatic, Normocephalic, PERRLA Neck: Supple, 2+ carotid pulse no bruit Respiratory: Clear to auscultation bilaterally,symmetrical chest on movement, on RA Cardiovascular: Regular rate and rhythm, Normal S1 S2, no murmur noted Capillary refill: <2 Seconds Gastrointestinal: Soft on palpation, NT, Distended (obese) Musculoskeletal: No clubbing Integumentary: No rashes Neurological: Other (right sided deficit, nonverbal), Abnormal speech, Abnormal tone Vitals Reviewed Problem list Mild Leukocytosis Hypernatremia Altered mental status 2/2 Dehydration Hyperglycemia CHF exacerbation Hypokalemia COVID-positive ARIEL Decreased PO intake History of anxiety History of hypertension History of cerebrovascular accident Anterolithesis of L5 on S1 multilevel degenerative changes in spine Pas defects at L5 Assessment and Plan Mild Leukocytosis Hypernatremia Altered mental status 2/2 Dehydration -Chest x-ray reports "No acute cardiopulmonary disease." -BNP 2768 -trend Na 147/150/ 150/146 -Lasix on hold -Intake output records -Daily weights -D5W 100 ml/hr, improved sodium to 146 Hyperglycemia -A1C 6.3 -serum glucose 155 -chronic steroids Hypokalemia -Potassium 3.8/4.0/3.9 -Replacement protocol in place COVID-positive -Isolation precautions -Not a candidate for paxlovid ARIEL -BUN/creatinine 75/1.21, 62/1.10, 52/1.2 -Gentle IV fluids given in the ED -continued IVF on the floor Decreased PO intake -speech therapy consulted History of anxiety History of hypertension History of cerebrovascular accident -Continue home medication Anterolithesis of L5 on S1 multilevel degenerative changes in spine Pas defects at L5 -Follow up outpatient DVT PPx SCDs full code LOS likely dc in the AM
[2023-09-30 06:16] LABS: Absolute Eosinophils 0.1 K/uL (0-0.5); Absolute Lymphocytes (CBC) 1.6 K/uL (0.7-4.9); Absolute Neutrophil 4.2 K/uL (1.8-8.0); Basophils % 0.5 % (0-1.3); Eosinophils % 1.4 % (0-4.4); Hematocrit 40.6 % (36.0-45.0); Hemoglobin 13.2 g/dL (12.0-15.0); Lymphocytes % 23.1 % (15.3-44.8); MCH 28.5 pg (27.0-35.0); MCHC 32.5 g/dL (32.0-36.0); MCV 87.7 fL (80-100); MPV 8.9 fL (7.6-11.3); Monocytes % 15.1 % (3.3-12.3); Neutrophils % 59.9 % (41.7-73.7); Platelets 215 thou/uL (152-406); RBC Red Blood Cell Count 4.63 M/uL (3.86-4.86); Red Cell Distribution Width 17.8 % (12.1-15.2)
[2023-09-30 06:38] LABS: Anion Gap 9.4 mEq/L (5.0-15.0); Magnesium 2.3 mg/dL (1.6-2.4); Phosphorus 2.9 mg/dL (2.5-4.9); Potassium 3.4 mEq/L (3.5-5.1)
--- NOTE | 2023-09-30 09:06 | P.DS ---
Admission Date: 09/28/23 Discharge Date: 10/01/23 Hospital Course: Diagnosis Acute metabolic encephalopathy secondary to dehydration and hypernatremia Hypernatremia Hyperglycemia CHF exacerbation Hypokalemia COVID-positive ARIEL Decreased PO intake History of anxiety History of hypertension History of cerebrovascular accident Anterolithesis of L5 on S1 multilevel degenerative changes in spine Pas defects at L5 <sukhjinder kent - Last Filed: 10/01/23 17:27> Admission Date: 09/28/23 Discharge Date: 09/30/23 Reason for Admission: COVID positive, lethargic Brief History of Present Illness: HPI 09/27/23 Jazz Jones is a 78 year old female with Pmhx anxiety, CHF, hypertension, cerebrovascular accident (non-verbal and right sided deficit) who presents to the ED with chief complaint of altered mental status and decreased responsiveness in the last few days. Daughter does report that she is not significantly different than her baseline, nonverbal. Daughter reports having diarrhea over the weekend and not to being given Lasix daily. Initial vital :BP 159 / 60; Pulse 69; Resp 16; Temp 97.9; Pulse Ox 95% Laboratory evaluation potassium 3.3, BUN/creatinine 90/1.65, serum glucose 132, BNP 2768, COVID positive CT abdomen pelvis reports: "No acute intra-abdominal or pelvic finding. Anterolisthesis of L5 on S1, multilevel degenerative changes are present in the spine, pars defects at L5." Chest x-ray reports "No acute cardiopulmonary disease." Jazz will be admitted to hospitalist service for further evaluation and treatment. Hospital Course: Jazz Jones is a pleasant 78 year old female with a past medical history significant for anxiety, CHF, hypertension, cerebrovascular accident (non-verbal and right sided deficit) who was admitted to the [facility] on 09/27/23 for Alterd mental status. Jazz presented to the ED because her daughter felt she was not acting like herself, although she is normally non-verbal. She was found to be dehydrated and COVID positive. Chest xray negative for acute infectious process. She has tolerated gentle IV fluids and potassium replaced. She is tolerating PO diet, responding more active, on room air, remained afebrile, and hemodynamically stable for discharge. On 09/30/23, Jazz was seen on morning rounds and deemed medically stable for discharge with her daughter and home health. Jazz was discharged with instructions to schedule follow-up appointments with PCP. She was provided prescriptions for Ciprofloxacin and mucinex. Physical Exam General: Awake and Alert, NAD, Other (nonverbal) HEENT: Atraumatic, Normocephalic, PERRLA Neck: Supple, 2+ carotid pulse no bruit Respiratory: Clear to auscultation bilaterally, Nonlabored breathing, on RA Cardiovascular: NSR, Normal S1 S2, no murmur noted Capillary refill: <2 Seconds Gastrointestinal: Soft on palpation, NT, Distended (obese) Musculoskeletal: No clubbing Integumentary: No rashes Neurological: Other (right sided deficit, nonverbal), Abnormal speech, Abnormal tone <Erika Stephens - Last Filed: 10/01/23 18:48> Disposition: ROUTINE DISCHARGE Discharge Condition: GOOD Vital Signs/Physical Exam: Temp Pulse Resp BP Pulse Ox 98.1 F 68 18 140/57 L 94 09/30/23 12:00 09/30/23 12:00 09/30/23 12:00 09/30/23 12:00 09/30/23 12:00 Laboratory Data at Discharge: WBC 6.90 thou/uL (4.3-10.9) 09/30/23 05:45 Hgb 13.2 g/dL (12.0-15.0) 09/30/23 05:45 Hct 40.6 % (36.0-45.0) 09/30/23 05:45 Plt Count 215 thou/uL (152-406) 09/30/23 05:45 PT 13.0 SECONDS (9.4-12.5) H 09/27/23 13:20 INR 1.17 09/27/23 13:20 APTT 28.1 SECONDS (24.3-36.9) 09/27/23 13:20 Sodium 147 mEq/L (136-145) H 09/30/23 05:45 Potassium 3.4 mEq/L (3.5-5.1) L 09/30/23 05:45 BUN 42 mg/dL (7-18) H 09/30/23 05:45 Creatinine 0.90 mg/dL (0.55-1.02) 09/30/23 05:45 Glucose 126 mg/dL (74-106) H 09/30/23 05:45 Phosphorus 2.9 mg/dL (2.5-4.9) 09/30/23 05:45 Magnesium 2.3 mg/dL (1.6-2.4) 09/30/23 05:45 Total Bilirubin 0.9 mg/dL (0.2-1.0) 09/27/23 13:20 AST 30 U/L (15-37) 09/27/23 13:20 ALT 27 U/L (13-56) 09/27/23 13:20 Alkaline Phosphatase 92 U/L (45-117) 09/27/23 13:20 <sukhjinder eknt - Last Filed: 10/01/23 17:27> Vital Signs/Physical Exam: Temp Pulse Resp BP Pulse Ox 97.1 F 65 19 172/70 H 94 09/30/23 04:00 09/30/23 04:00 09/30/23 04:00 09/30/23 04:00 09/30/23 04:00 Laboratory Data at Discharge: WBC 6.90 thou/uL (4.3-10.9) 09/30/23 05:45 Hgb 13.2 g/dL (12.0-15.0) 09/30/23 05:45 Hct 40.6 % (36.0-45.0) 09/30/23 05:45 Plt Count 215 thou/uL (152-406) 09/30/23 05:45 PT 13.0 SECONDS (9.4-12.5) H 09/27/23 13:20 INR 1.17 09/27/23 13:20 APTT 28.1 SECONDS (24.3-36.9) 09/27/23 13:20 Sodium 147 mEq/L (136-145) H 09/30/23 05:45 Potassium 3.4 mEq/L (3.5-5.1) L 09/30/23 05:45 BUN 42 mg/dL (7-18) H 09/30/23 05:45 Creatinine 0.90 mg/dL (0.55-1.02) 09/30/23 05:45 Glucose 126 mg/dL (74-106) H 09/30/23 05:45 Phosphorus 2.9 mg/dL (2.5-4.9) 09/30/23 05:45 Magnesium 2.3 mg/dL (1.6-2.4) 09/30/23 05:45 Total Bilirubin 0.9 mg/dL (0.2-1.0) 09/27/23 13:20 AST 30 U/L (15-37) 09/27/23 13:20 ALT 27 U/L (13-56) 09/27/23 13:20 Alkaline Phosphatase 92 U/L (45-117) 09/27/23 13:20 <Erika Stephens - Last Filed: 10/01/23 18:48> <sukhjinder kent - Last Filed: 10/01/23 17:27> Diet: Regular Activity: Fall precautions <Erika Stephens - Last Filed: 10/01/23 18:48> Home Medications: Amlodipine Besylate 10 mg PO DAILY 02/03/19 Losartan Potassium 50 mg PO DAILY AT SUPPER 02/03/19 Atorvastatin Calcium [Lipitor] 80 mg PO BEDTIME 09/27/23 Baclofen 10 mg PO TID 09/27/23 Carvedilol [Coreg] 12.5 mg PO BID 09/27/23 Clopidogrel Bisulfate [Plavix] 75 mg PO DAILY 09/27/23 Escitalopram [Lexapro*] 10 mg PO DAILY 09/27/23 Furosemide 40 mg PO DAILY 09/27/23 Hydralazine HCl 75 mg PO TID 09/27/23 Methylphenidate HCl 5 mg PO BID 09/27/23 Ciprofloxacin HCl [Cipro 500 MG Tablet] 500 mg PO BID 7 Days #14 tab 09/30/23 Guaifenesin [Mucinex] 600 mg PO BID PRN 6 Days #12 tab 09/30/23 New Medications: Ciprofloxacin HCl [Cipro 500 MG Tablet] 500 mg PO BID 7 Days #14 tab Guaifenesin [Mucinex] 600 mg PO BID PRN 6 Days #12 tab PRN Reason: Cough Physician Discharge Instructions: Jazz Jones was admitted with dehydration, IV fluids were tolerated to balance her hydration. Electrolytes were replaced as well, please encourage more food and nutrition to support her electrolyte balance. 1. Please call and schedule a follow-up appointment with your PCP in 3-5 days -Admitted for dehydration -UTI starting PO antibiotics - Please follow-up with your PCP for medication refills/adjustments 2. Please call and schedule a follow-up appointment with [text] in 3-5 days 3. Continue regular diet 4. activity restrictions, fall precautions 5. Return to the ED if symptoms worsen New medications Ciprofloxacin 500 mg p.o. twice daily x 7 days Mucinex 600 mg BID as needed for congestion/cough Established home health: [facility] [place] P:[phone] F:[phone] Followup: OOT,OOT [UNKNOWN] -
[2023-09-30 12:02] VITALS: BP 140/57; TEMP 98.1
[2023-09-30 16:17] VITALS: O2SAT 94
== END 2023-09-30 14:19 | disposition home health service (06) | DRG 177 ==
LOC: ER 11:53 → 4TH 16:28 → OBSVTOIN 09-28 12:50
PROVIDERS: ADMIT Internal Medicine; ATTEND Internal Medicine
DX: U07.1 COVID-19 (principal); G93.41 Metabolic encephalopathy; I69.351 Hemiplegia and hemiparesis following cerebral infarction affecting right dominant side; N17.9 Acute kidney failure, unspecified; N39.0 Urinary tract infection, site not specified; E87.0 Hyperosmolality and hypernatremia; E86.0 Dehydration; I50.9 Heart failure, unspecified; I11.0 Hypertensive heart disease with heart failure; E87.6 Hypokalemia; F41.9 Anxiety disorder, unspecified; R73.9 Hyperglycemia, unspecified; Z88.8 Allergy status to other drugs, medicaments and biological substances; Z79.02 Long term (current) use of antithrombotics/antiplatelets; Z79.899 Other long term (current) drug therapy
CPT/HCPCS: 36415; 71045; 74176; 80048; 80053; 81001; 83036; 83605; 83735; 83880; 84100; 84439; 84443; 85025; 85610; 85730; 87040; 87811; 92610; 93005; 96365; 96366; 99285; G0378; J3480; J7040; J7050; Q9967

== ENCOUNTER 2024-03-22 11:33 | Emergency (ER) | payer OTHER ==
[2024-03-22] MEDS ORDERED: NA CHLORIDE 0.9% 100 ML ONE (12:07)
[2024-03-22] MEDS ORDERED: LEVETIRACETAM 500 MG/5 ML VIAL IV ONE (12:07)
[2024-03-22 12:11] LABS: Absolute Basophils 0.1 K/uL (0-0.5); Absolute Eosinophils 0.3 K/uL (0-0.5); Absolute Lymphocytes (CBC) 1.4 K/uL (0.7-4.9); Absolute Monocytes 0.9 K/uL (0.1-1.3); Absolute Neutrophil 6.9 K/uL (1.8-8.0); Basophils % 0.6 % (0-1.3); Eosinophils % 3.6 % (0-4.4); Hematocrit 34.7 % (36.0-45.0); Hemoglobin 11.9 g/dL (12.0-15.0); Lymphocytes % 14.9 % (15.3-44.8); MCH 31.3 pg (27.0-35.0); MCHC 34.3 g/dL (32.0-36.0); MCV 91.2 fL (80-100); MPV 8.7 fL (7.6-11.3); Monocytes % 9.3 % (3.3-12.3); Neutrophils % 71.6 % (41.7-73.7); Platelets 247 thou/uL (152-406); RBC Red Blood Cell Count 3.81 M/uL (3.86-4.86); Red Cell Distribution Width 14.7 % (12.1-15.2)
[2024-03-22 12:13] LABS: Protime INR 1.14
[2024-03-22 12:25] LABS: AST/SGOT 16 U/L (15-37); Albumin/Globulin Ratio 0.7 (1.1-1.8); Alkaline Phosphatase 71 U/L (45-117); Anion Gap 12.8 mEq/L (5.0-15.0); BUN Blood Urea Nitrogen 23 mg/dL (7-18); Bicarbonate 23 mEq/L (21-32); Bilirubin Total 0.5 mg/dL (0.2-1.0); Globulin 4.1 g/dL (2.3-3.5); Glomerular Filtration Rate 60 ml/min (=/>90); Glucose Level 90 mg/dL (74-106); Magnesium 2.1 mg/dL (1.6-2.4); NT PRO-BNP 811 pg/mL (<450); Potassium 3.8 mEq/L (3.5-5.1); Protein, Total 7.1 g/dL (6.4-8.2); Sodium Level 138 mEq/L (136-145); Troponin High Sensitivity 23.9 pg/mL (<58.9)
[2024-03-22 12:29] LABS: ALT/SGPT < 14 U/L (13-56); Bilirubin Direct < 0.2 mg/dL (0-0.2); Bilirubin Indirect, Calculated 0.3 mg/dL (0.2-0.8)
[2024-03-22 12:40] LABS: Specific Gravity 1.009 (1.005-1.030); Sqamous Epithelial <5 /HPF (None Seen); Urine Bacteria <20 /HPF (<20); Urine Bilirubin NEGATIVE (Negative); Urine Blood Negative (Negative); Urine Clarity Turbid (Clear); Urine Color Colorless (Yellow); Urine Culture Reflex Order NOT NEEDED; Urine Glucose NEGATIVE (Negative); Urine Ketones NEGATIVE (Negative); Urine Microscopic Reflex YN ORDER UMIC; Urine Mucus Slight /HPF (None Seen); Urine Nitrite NEGATIVE (Negative); Urine Protein TRACE (Negative); Urine RBC None Seen /HPF (None Seen); Urine Urobilinogen Normal (Normal); Urine WBC <5 /HPF (<5)
--- NOTE | 2024-03-22 12:42 | RAD REPORT ---
Procedure: Chest Single View HISTORY: Seizure COMPARISON: October 2023 FINDINGS: The lungs appear clear of acute infiltrate.. Chronic appearing interstitial lung opacities are presen t. No significant pleural effusion noted. The heart is normal size. IMPRESSION: No acute abnormality is displayed.
--- NOTE | 2024-03-22 12:46 | RAD REPORT ---
EXAM: CT brain without contrast HISTORY: Seizure COMPARISON: 2023 TECHNIQUE: Multiple contiguous axial images were obtained and a CT of the brain without contrast.. Sagittal and coronal reconstruction performed. Automated exposure control, adjustment of the mA and/or kV according to patient size, and/or iterative reconstruction. Unless otherwise specified, incidental f indings do not require dedicated imaging follow-up FINDINGS: An intracranial bleed is not seen Ventricles are normal caliber Cystic encephalomalacia left cerebrum unchanged. No extra-axial fluid collection Chronic opacification sphenoid sinus. IMPRESSION: No acute intracranial abnormality noted. If the patient continues to have symptoms to suggest an acute intracranial abnormality then MRI of th e brain would be recommended.
--- NOTE | 2024-03-22 12:58 | EDPHYS ---
Physician Documentation [facility] Name: Jazz Jones Age: 78 yrs Sex: Female : 1945 Arrival Date: 03/22/2024 Time: 11:33 Bed 4 Private MD: ED Physician Elian Mccormack HPI: 03/22 11:51 This 78 yrs old Female presents to ER via Unassigned with complaints of rn Seizure. 11:51 The patient presents after having a single isolated seizure. Seizure onset: just prior rn to arrival. Associated injury: The patient did not suffer any apparent associated injury. Current symptoms: confusion. The patient has experienced a previous episode. EMS reports patient had seizure that lasted approximately 8 minutes, happened at home and rest while seated. No trauma. Has had 1 seizure like episode in the past 4 months ago, does not take any seizure medication. Daughter denies any new medication or fever or signs of infection. No skin changes or signs of cellulitis either. Patient has had a large stroke with residual speech problems as well as right sided weakness and paralysis. No meds given by family or EMS and patient was postictal, continues to improve near her baseline now.. Historical: - Allergies: 11:38 Lisinopril; aa5 - PMHx: 11:38 Anxiety; Cerebrovascular accident; CHF; Hypertension; Myocardial infarction; Right aa5 sided weakness (Unknown); Speech impediment post CVA (Unknown); - Immunization history:: Adult Immunizations unknown. - Infectious Disease History:: unknown . - Family history:: not pertinent. - Social history:: Smoking status: unknown. - Hospitalizations: : No recent hospitalization is reported. - History obtained from: daughter, EMS. ROS: 11:51 Unable to obtain ROS due to altered mental status, rn Exam: 11:51 Constitutional: This is a well developed, well nourished patient who is awake, alert, rn and in no acute distress. Head/Face: Normocephalic, atraumatic. ENT: Dry mucous membranes, no stridor, small tongue injury but no active bleeding Cardiovascular: Regular rate and rhythm. No pulse deficits. Respiratory: No increased work of breathing, no retractions or nasal flaring. Abdomen/GI: Soft, non-tender Skin: Mild skin breakdown inguinal regions without signs of cellulitis or fungal infection Neuro: Awake, alert, right-sided weakness which is her baseline. Slurred speech and difficult to comprehend. 12:07 ECG was reviewed by the Attending Physician. rn Vital Signs: 11:38 BP 152 / 69; Pulse 83; Resp 18 S; Temp 97.8(TE); Pulse Ox 97% on R/A; aa5 13:15 BP 162 / 68; Pulse 75; Resp 14; Pulse Ox 100% ; jb4 13:47 BP 158 / 72; Pulse 78; Resp 15; Pulse Ox 99% ; jb4 Rex Coma Score: 11:35 Eye Response: spontaneous(4). Motor Response: obeys commands(6). Verbal Response: jb4 incomprehensible(2). Total: 12. MDM: 11:38 Medical Screening Exam initiated rn 12:55 Differential diagnosis: cerebral vascular accident, cardiac arrhythmia, seizure. Data rn reviewed: vital signs, nurses notes, lab test result(s), EKG, radiologic studies, CT scan, and as a result, I will discharge patient. Counseling: I had a detailed discussion with the patient and/or guardian regarding the historical points, exam findings, and any diagnostic results supporting the discharge/admit diagnosis, lab results, radiology results, the need for outpatient follow up, to return to the emergency department if symptoms worsen or persist or if there are any questions or concerns that arise at home. Response to treatment: the patient's symptoms have markedly improved after treatment, the patient's condition has returned to base line, the patient is now symptom free, and as a result, I will discharge patient. Special discussion: I discussed with the patient/guardian in detail that at this point there is no indication for admission to the hospital. It is understood, however, that if the symptoms persist or worsen the patient needs to return immediately for re-evaluation. Based on the history and exam findings, there is no indication for further emergent testing or inpatient evaluation. I discussed with the patient/guardian the need to see the neurologist for further evaluation of the symptoms. ED course: Patient now sounds like she has had her second seizure, after discussion with family, will start on antiepileptic medication and follow-up with neurology. Patient completely back to baseline. No etiology found for seizure trigger.. 03/22 11:40 Order name: Basic Metabolic Panel; Complete Time: 12:47 rn 03/22 11:40 Order name: CBC with Diff; Complete Time: 12:47 rn 03/22 11:40 Order name: LFT's; Complete Time: 12:47 rn 03/22 11:40 Order name: Magnesium; Complete Time: 12:47 rn 03/22 11:40 Order name: NT PRO-BNP; Complete Time: 12:47 rn 03/22 11:40 Order name: PT-INR; Complete Time: 12:47 rn 03/22 11:40 Order name: Troponin HS; Complete Time: 12:47 rn 03/22 11:40 Order name: Urinalysis w/ reflexes; Complete Time: 12:47 rn 03/22 11:40 Order name: CT Head Brain wo Cont; Complete Time: 12:47 rn 03/22 11:40 Order name: XRAY Chest (1 view); Complete Time: 12:47 rn 03/22 11:40 Order name: Cardiac monitoring; Complete Time: 11:53 rn 03/22 11:40 Order name: EKG - Nurse/Tech; Complete Time: 12:00 rn 03/22 11:40 Order name: IV Saline Lock; Complete Time: 12:00 rn 03/22 11:40 Order name: Labs collected and sent; Complete Time: 12:00 rn 03/22 11:40 Order name: O2 Per Protocol; Complete Time: 11:53 rn 03/22 11:40 Order name: O2 Sat Monitoring; Complete Time: 11:53 rn EC:07 Rate is 78 beats/min. Rhythm is regular. QRS Henry is Normal. TX interval is prolonged. rn QRS interval is normal. No Q waves. T waves are Normal. No ST changes noted. Clinical impression: NSR w/ Non-specific ST/T Changes and 1st degree heart block. Interpreted by me. Reviewed by me. Administered Medications: 12:10 Drug: Keppra IV 1000 mg IV at calculated rate once Route: IV; Rate: calculated rate; aa5 Site: left wrist; 12:25 Follow up: Response: No adverse reaction; IV Status: Completed infusion; IV Intake: aa5 100ml Disposition Summary: 03/22/24 12:57 Discharge Ordered Notes: Location: Home rn Problem: new rn Symptoms: have improved rn Condition: Stable rn Diagnosis - Other seizures rn Followup: rn - With: Private Physician - When: As needed - Reason: Recheck today's complaints, Re-evaluation by your physician Discharge Instructions: - Discharge Summary Sheet rn - Seizure, Adult rn Forms: - Medication Reconciliation Form rn - Antibiotic morning news anchor - Prescription Opioid Use rn - Patient Portal Instructions rn - Leadership Thank You Letter rn Prescriptions: - Keppra 500 mg Oral tablet - take 1 tablet ORAL route every 12 hours; 60 tablet; Refills: 0, Product rn Selection Permitted Signatures: Dispatcher [employer] EDAR Elian Mccormack MD MD rn Calderon, Audri, RN RN aa5 Corrections: (The following items were deleted from the chart) 11:41 11:41 BASIC METABOLIC PANEL+C.LAB.BRZ ordered. EDMS EDMS 11:41 11:41 CBC+H.LAB.BRZ ordered. EDMS EDMS 11:41 11:41 HEPATIC FUNCTION+C.LAB.BRZ ordered. EDMS EDMS 11:41 11:41 MAGNESIUM+C.LAB.BRZ ordered. EDMS EDMS 11:41 11:41 PROBNP+C.LAB.BRZ ordered. EDMS EDMS 11:41 11:41 PROTIME (+INR)+COAG.LAB.BRZ ordered. EDMS EDMS 11:41 11:41 Troponin High Sensitivity+C.LAB.BRZ ordered. EDMS EDMS 11:41 11:41 Urinalysis+U.LAB.BRZ ordered. EDMS EDMS 11:41 11:41 Chest Single View+RAD.RAD.BRZ ordered. EDMS EDMS
--- NOTE | 2024-03-22 12:58 | ER ---
Nurse's Notes [facility] Name: Jazz Jones Age: 78 yrs Sex: Female : 1945 Arrival Date: 03/22/2024 Time: 11:33 Bed 4 Private MD: Diagnosis: Other seizures Presentation: 03/22 11:38 Chief complaint: EMS states: seizure reported by pt's daughter that lasted aa5 approximately 8 minutes, pt was post-ictal upon scene arrival by EMS. Pt currently awake and alert. 11:38 Coronavirus screen: At this time, the client does not indicate any symptoms associated aa5 with coronavirus-19. Ebola Screen: Patient denies travel to an Ebola-affected area in the 21 days before illness onset. Initial Sepsis Screen: Does the patient meet any 2 criteria? No. Patient's initial sepsis screen is negative. Does the patient have a suspected source of infection? No. Patient's initial sepsis screen is negative. Risk Assessment: Do you want to hurt yourself or someone else? Patient reports no desire to harm self or others. Onset of symptoms was March 22, 2024. 11:38 Method Of Arrival: EMS: [facility] aa5 11:38 Acuity: ISABEL 2 aa5 Triage Assessment: 11:35 General: Appears in no apparent distress. Behavior is calm. jb4 Historical: - Allergies: 11:38 Lisinopril; aa5 - PMHx: 11:38 Anxiety; Cerebrovascular accident; CHF; Hypertension; Myocardial infarction; Right aa5 sided weakness (Unknown); Speech impediment post CVA (Unknown); - Immunization history:: Adult Immunizations unknown. - Infectious Disease History:: unknown . - Family history:: not pertinent. - Social history:: Smoking status: unknown. - Hospitalizations: : No recent hospitalization is reported. - History obtained from: daughter, EMS. Screenin:01 [facility] ED Fall Risk Assessment (Adult) History of falling in the last 3 months, ko1 including since admission No falls in past 3 months (0 pts) Confusion or Disorientation No (0 pts) Intoxicated or Sedated No (0 pts) Impaired Gait No (0 pts) Mobility Assist Device Used No (0 pt) Altered Elimination Yes (1 pt) Score/Fall Risk Level 0 - 2 = Low Risk Oriented to surroundings, Maintained a safe environment, Educated pt \\T\\ family on fall prevention, incl call for assistance when getting out of bed, Assessed \\T\\ reinforced patient's understanding of fall precautions, Provided non-skid footwear, Hourly rounding (assess needs \\T\\ fall precautionary measures) done. Abuse screen: Denies threats or abuse. Denies injuries from another. Nutritional screening: No deficits noted. Tuberculosis screening: No symptoms or risk factors identified. Assessment: 11:38 General: Appears comfortable, Behavior is calm, cooperative. Pain: Denies pain. Neuro: aa5 Level of Consciousness is awake, alert, obeys commands, Oriented to none Pt only able to answer yes/no questions, pt only states "mama". Right sided deficit from previous CVA noted. . Cardiovascular: Heart tones S1 S2 present Rhythm is regular. Respiratory: Airway is patent Respiratory effort is even, unlabored, Respiratory pattern is regular, symmetrical. GI: No signs and/or symptoms were reported involving the gastrointestinal system. Abdomen is obese. : Brief noted. EENT: No signs and/or symptoms were reported regarding the EENT system. Derm: Skin is pink, warm \\T\\ dry. Musculoskeletal: right leg noted to be contracted. 12:00 Reassessment: Pt's daughter at bedside reports pt does not take any medication for aa5 seizures, reports 1st seizure was approximately 3-4 months ago. . 12:20 Reassessment: Pt to CT scan . aa5 Vital Signs: 11:38 BP 152 / 69; Pulse 83; Resp 18 S; Temp 97.8(TE); Pulse Ox 97% on R/A; aa5 13:15 BP 162 / 68; Pulse 75; Resp 14; Pulse Ox 100% ; jb4 13:47 BP 158 / 72; Pulse 78; Resp 15; Pulse Ox 99% ; jb4 [place] Coma Score: 11:35 Eye Response: spontaneous(4). Motor Response: obeys commands(6). Verbal Response: jb4 incomprehensible(2). Total: 12. ED Course: 11:38 Patient arrived in ED. ko1 11:38 Elian Mccormack MD is Attending Physician. rn 11:38 Patient has correct armband on for positive identification. Placed in gown. Bed in low aa5 position. Call light in reach. Side rails up X2. Adult w/ patient. Seizure precautions initiated. Client placed on continuous cardiac and pulse oximetry monitoring. NIBP monitoring applied. environmental monitoring specialist on. 11:40 Arm band placed on right wrist. Patient placed in an exam room, on a stretcher, on jb4 diagnostic cardiac sonographer, on pulse oximetry, Patient notified of wait time. 11:57 Urine collected: straight cath specimen, sent to lab. aa5 11:59 Initial lab(s) drawn, by mt, sent to lab. Inserted saline lock: 20 gauge in left wrist, aa5 using aseptic technique. Blood collected. Flushed with 10 mL NS. 12:00 Urinalysis w/ reflexes Sent. ko1 12:00 Basic Metabolic Panel Sent. ko1 12:00 CBC with Diff Sent. ko1 12:01 LFT's Sent. ko1 12: Magnesium Sent. ko1 12: NT PRO-BNP Sent. ko1 12:01 PT-INR Sent. ko1 12: Troponin HS Sent. ko1 12:01 EKG done, by ED staff, reviewed by Elian Mccormack MD. ko1 12:01 Provided Education on: labs, meds. Door closed. Noise minimized. Lights dimmed. Warm ko1 blanket given. Pillow given. Cleaned of incontinence. Linen changed. 12:10 Hortencia Cheema, RN is Primary Nurse. aa5 12:13 Triage completed. aa5 12:31 CT Head Brain wo Cont In Process Unspecified. EDMS 12:34 XRAY Chest (1 view) In Process Unspecified. EDMS 13:15 No provider procedures requiring assistance completed. IV discontinued, intact, jb4 bleeding controlled, No redness/swelling at site. Pressure dressing applied. Administered Medications: 12:10 Drug: Keppra IV 1000 mg IV at calculated rate once Route: IV; Rate: calculated rate; aa5 Site: left wrist; 12:25 Follow up: Response: No adverse reaction; IV Status: Completed infusion; IV Intake: aa5 100ml Medication: 12:16 VIS not applicable for this client. aa5 Intake: 12:25 IV: 100ml; Total: 100ml. aa5 Outcome: 12:57 Discharge ordered by . rn 13:47 Discharged to home via ambulance, with family, jb4 13:47 Condition: stable 13:47 Discharge instructions given to family, Instructed on discharge instructions, follow up and referral plans. medication usage, Demonstrated understanding of instructions, follow-up care, medications, Prescriptions given X 1, 13:49 Patient left the ED. jb4 Signatures: Dispatcher [employer] EDMS Elian Mccormack MD MD rn Calderon, Audri RN RN aa5 Moi Cano RN RN jb4 Tammy Raymundo RN RN ko1 Corrections: (The following items were deleted from the chart) 12:13 11:38 Chief complaint: EMS states: seizure reported by pt's daughter that lasted aa5 approximately 8 minutes, pt was post-ictal upon scene arrival by EMS. Pt currently awake and alert. aa5 12:16 12:01 Patient has correct armband on for positive identification. Placed in gown. Bed aa5 in low position. Call light in reach. Side rails up X2. Adult w/ patient. ko1 12:16 12:01 Client placed on continuous cardiac and pulse oximetry monitoring. NIBP aa5 monitoring applied. environmental monitoring specialist on. ko1 12:16 12:01 Seizure precautions initiated. ko1 aa5 19:17 13:17 Response: No adverse reaction; IV Status: Completed infusion; IV Intake: 250ml [id number] 19:17 12:20 Response: No adverse reaction; IV Status: Completed infusion; IV Intake: 100ml [id number]
[2024-03-22 20:21] VITALS: TEMP 97.8
[2024-03-22 20:24] VITALS: BP 158/72; O2SAT 99
== END 2024-03-22 13:49 | disposition home or self-care (01) ==
LOC: ER 11:33
DX: R56.9 Unspecified convulsions (principal); Z86.73 Personal history of transient ischemic attack (TIA), and cerebral infarction without residual deficits; I10 Essential (primary) hypertension
CPT/HCPCS: 85025; 81001; 80048; 36415; 83735; 85610; 80076; 84484; 83880; 70450; 71045; 96374; 99285; J1953; 93005

== ENCOUNTER 2024-11-26 19:48 | Emergency (ER) | payer OTHER ==
[2024-11-26] MEDS ORDERED: NA CHLORIDE 0.9% 500 ML ONE (20:13)
[2024-11-26 20:56] LABS: Absolute Lymphocytes (CBC) 1.7 K/uL (0.7-4.9); Hematocrit 38.2 % (36.0-45.0); Hemoglobin 13.0 g/dL (12.0-15.0); MCH 29.8 pg (27.0-35.0); MCHC 34.1 g/dL (32.0-36.0); MCV 87.6 fL (80-100); MPV 9.2 fL (7.6-11.3); Nucleated RBC Absolute Count 0.0 (0-0); Nucleated Red Blood Cells % 0.0 % (0-0); RBC Red Blood Cell Count 4.35 M/uL (3.86-4.86); White Blood Count 9.30 thou/uL (4.3-10.9)
--- NOTE | 2024-11-26 20:58 | RAD REPORT ---
EXAMINATION: Head Brain Wo Cont CLINICAL INDICATION: Female, 79 years old.AMS TECHNIQUE: Axial CT images from the skull base to the vertex without intravenous contrast. Coronal an d sagittal reformatted images were created from the data set. One or more of the following dose reduction techniques were used: Automated exposure control, adjustment of the mA and/or kV according to patient size, and/or iterative reconstruction. Unless otherwise specified, incidental findings do not require dedicated imaging follow-up. [id number]. COMPARISON: 09/03/2024 FINDINGS: INTRACRANIAL: No acute intracranial hemorrhage. No acute large vascular territory infarct. No hydroce phalus. No mass effect or midline shift. Remote moderate left MCA territory infarct. VASCULATURE: No visualized abnormalities in the arteries or dural venous sinuses. SCALP/SKULL: No calvarial fracture identified. No acute soft tissue abnormality. SINUSES: The visualized paranasal sinuses are mostly clear. No significant mastoid fluid. IMPRESSION: No acute intracranial abnormality.
[2024-11-26 21:03] LABS: Urine Crystals Unidentified Few /HPF (None Seen); Urine Culture Reflex Order NOT NEEDED; Urine Microscopic Reflex YN ORDER UMIC; Urine WBC Clump Few /HPF (None Seen)
[2024-11-26 21:04] LABS: PT Prothrombin Time 13.3 SECONDS (10-13.0); Protime INR 1.18
--- NOTE | 2024-11-26 21:13 | RAD REPORT ---
EXAM: Chest Single View HISTORY: 79 years Female CHEST PAIN COMPARISON: 09/03/2024 FINDINGS: LUNGS/PLEURA: Possible developing consolidation in the right upper lobe. Right midlung scarring. CARDIAC/MEDIASTINUM: The cardiac silhouette is within normal limits. UPPER ABDOMEN: No significant abnormality. BONES: No acute abnormality. LINES/TUBES/OTHER: N/A IMPRESSION: Possible developing right upper lobe consolidation. This could be related to overlapping anatomy due to patient's positioning. Could consider either a standard PA and lateral if the patient's condition permits or chest CT if indicated.
[2024-11-26 21:21] LABS: ALT/SGPT 16.0 U/L (13-56); AST/SGOT 16.0 U/L (15-37); Albumin 3.3 g/dL (3.4-5.0); Albumin/Globulin Ratio 0.9 (1.1-1.8); Alkaline Phosphatase 81.0 U/L (45-117); Anion Gap 8.8 mEq/L (5.0-15.0); BUN Blood Urea Nitrogen 24.0 mg/dL (7-18); Bilirubin Indirect, Calculated 0.4 mg/dL (0.2-0.8); Globulin 3.8 g/dL (2.3-3.5); Glucose Level 105.0 mg/dL (74-106); Magnesium 2.1 mg/dL (1.6-2.4); NT PRO-BNP 2679.0 pg/mL (<450); Potassium 3.8 mEq/L (3.5-5.1); Troponin High Sensitivity 27.0 pg/mL (<58.9)
[2024-11-26 21:32] LABS: Thyroid Stimulating Hormone 1.75 uIU/mL (0.358-3.740)
[2024-11-26] MEDS ORDERED: ALBUMIN HUMAN 25% 0 ML IV ONE (21:56)
[2024-11-26] MEDS ORDERED: NA CHLORIDE 0.9% 50 ML ONE (22:20)
[2024-11-26] MEDS ORDERED: CEFTRIAXONE 1000 MG/VIAL ONE (22:20)
--- NOTE | 2024-11-26 23:05 | ER ---
Nurse's Notes [facility] Name: Jazz Jones Age: 79 yrs Sex: Female : 1945 Arrival Date: 11/26/2024 Time: 19:58 Bed 8 Private MD: Diagnosis: UTI/ Urinary tract infection, site not specified;Physical deconditioning secondary to prolonged immobility, acute urinary tract infection, Presentation: 11/26 20:07 Chief complaint: EMS states: toned out because patient has had episodes of giggling for me1 no reason and daughter is concerned she is having a TIA or another stroke. Reports she is also sleeping more than normal. Since CVA in 2023 patient has expressive aphasia and right sided weakness with RLE contracture. Coronavirus screen: At this time, the client does not indicate any symptoms associated with coronavirus-19. Ebola Screen: No symptoms or risks identified at this time. Initial Sepsis Screen: Does the patient meet any 2 criteria? No. Patient's initial sepsis screen is negative. Does the patient have a suspected source of infection? No. Patient's initial sepsis screen is negative. Risk Assessment: Do you want to hurt yourself or someone else? Patient reports no desire to harm self or others. Onset of symptoms was November 25, 2024. 20:07 Method Of Arrival: EMS: [facility] 20:07 Acuity: ISABEL 3 me1 Triage Assessment: 23:30 General: Appears in no apparent distress. comfortable, Behavior is calm, cooperative. kb4 Cardiovascular: Patient's skin is warm and dry. Respiratory: Airway is patent Respiratory effort is even, unlabored. 23:30 EENT: No signs and/or symptoms were reported regarding the EENT system. Neuro: Level of kb4 Consciousness is awake, alert, obeys commands, Oriented to person, place, time, situation. GI: No signs and/or symptoms were reported involving the gastrointestinal system. : No signs and/or symptoms were reported regarding the genitourinary system. Derm: No signs and/or symptoms reported regarding the dermatologic system. Musculoskeletal: Range of motion: limited in right sideded weakness. Historical: - Allergies: 20:10 Lisinopril; me1 - PMHx: 20:10 Anxiety; Cerebrovascular accident; CHF; Hypertension; Myocardial infarction; Right me1 sided weakness (Unknown); expressive aphasia (Unknown); - PSHx: 20:10 None; me1 - Immunization history:: Adult Immunizations up to date. - Infectious Disease History:: Denies. - Social history:: Smoking status: Patient denies any tobacco usage or history of. - Family history:: not pertinent. Screenin:32 [facility] ED Fall Risk Assessment (Adult) History of falling in the last 3 months, kb4 including since admission No falls in past 3 months (0 pts) Confusion or Disorientation No (0 pts) Intoxicated or Sedated No (0 pts) Impaired Gait Yes (1 pt) Mobility Assist Device Used Yes (1 pt) Altered Elimination Yes (1 pt) Score/Fall Risk Level 3 or more points = High Risk. Abuse screen: Denies threats or abuse. Denies injuries from another. Nutritional screening: No deficits noted. Tuberculosis screening: No symptoms or risk factors identified. Assessment: 20:30 Reassessment: daughter at bedside , see triage, no change. kb4 21:11 General: Appears in no apparent distress. comfortable, Behavior is calm, cooperative. zm 21:11 Pain: Denies pain. Neuro: Level of Consciousness is awake, alert, obeys commands, zm Oriented to person, Reports weakness caregiver (daughter) reports more fatigue than usual and sporadic laughter . Cardiovascular: Heart tones S1 S2 present Patient's skin is warm and dry. Rhythm is sinus bradycardia. Respiratory: Airway is patent Respiratory effort is even, unlabored, Respiratory pattern is regular, symmetrical, Breath sounds are clear bilaterally. GI: No signs and/or symptoms were reported involving the gastrointestinal system. : No signs and/or symptoms were reported regarding the genitourinary system. Derm: No signs and/or symptoms reported regarding the dermatologic system. Musculoskeletal: Range of motion: limited in right arm and right leg from previous stoke. 22:00 Reassessment: Patient and/or family updated on plan of care and expected duration. Pain zm level reassessed. 22:55 Reassessment: Patient and/or family updated on plan of care and expected duration. Pain zm level reassessed. 23:20 Reassessment: FAMILY MEMBER REQUESTING TRANSPORTATION FOR PATIENT. PROVIDED EDUCATION ha1 ON ARRANGEMENTS FOR TRANSPORTATION. I EXPLAINED THAT PATIENTS HAVE TO MEET A CRITERIA IN ORDER TO QUALIFIED FOR TRANSPORTATION. FAMILY STATES" THIS IS RIDICULOUS AND STUPID." NOTIFIED CHARGE NURSE AND PROPERTY VALUER. Vital Signs: 20:07 BP 152 / 55; Pulse 57; Resp 18; Temp 97.8; Pulse Ox 100% ; Weight 84 kg; me1 22:00 BP 147 / 44; Pulse 56; Resp 18 S; Pulse Ox 98% on R/A; zm 22:30 BP 109 / 73; Pulse 55; Resp 16; Temp 97.9; Pulse Ox 98% on R/A; zm 23:10 BP 126 / 99; Pulse 56; Resp 19 S; Pulse Ox 97% on R/A; ha1 [place] Coma Score: 22:30 Eye Response: spontaneous(4). Motor Response: obeys commands(6). Verbal Response: zm inappropriate words(3). Total: 13. ED Course: 19:59 Patient arrived in ED. vc1 20:00 Kevin Pate MD is Attending Physician. sp4 20:10 Triage completed. me1 20:10 Arm band placed on Patient placed in an exam room. me1 20:24 Initial lab(s) drawn, by tn, sent to lab. First set of blood cultures drawn by tn, kb4 Second set of blood cultures drawn by tn. 20:30 Kaila Jefferson RN is Primary Nurse. kb4 20:31 Inserted saline lock: 20 gauge in left antecubital area, using aseptic technique. kb4 20:32 Patient has correct armband on for positive identification. Bed in low position. Call kb4 light in reach. Side rails up X2. 20:46 CT Head Brain wo Cont In Process Unspecified. EDMS 21:02 XRAY Chest (1 view) In Process Unspecified. EDMS 21:11 Report received from FILIPE Bright. zm 23:03 Lei Pulido MD is Referral Physician. sp4 11/27 00:00 Provided Education on: MEDICATION ADMINISTRATION . ha1 00:00 No provider procedures requiring assistance completed. ha1 00:00 IV discontinued, intact, bleeding controlled, No redness/swelling at site. Pressure ha1 dressing applied. Administered Medications: 11/26 20:24 Drug: NS 0.9% IV 500 ml 500 ml IV at 1 bolus once; to be given as a bolus over 30 al5 minutes Volume: 500 ml; Route: IV; Rate: 1 bolus; Site: left antecubital; 22:48 Follow up: Response: No adverse reaction; IV Status: Completed infusion ha1 22:09 Not Given (Physician Discretion): [id number] grams 100 ml IVPB once; (Note: Albumin 25% sp4 concentration) 22:09 Not Given (Physician Discretion): [id number] grams 100 ml IVPB once; (Note: Albumin 25% sp4 concentration) 22:29 Drug: Rocephin - Rocephin (cefTRIAXone) IVPB 1 grams IVPB once over 30 mins; (mix in 50 zm mL NS) Route: IVPB; Infused Over: 30 mins; Site: left antecubital; 22:48 Follow up: Response: No adverse reaction; IV Status: Completed infusion ha1 Medication: 23:01 VIS not applicable for this client. zm Outcome: 23:04 Discharge ordered by . sp4 11/27 00:00 Discharged to home via wheelchair, with family, ha1 Condition: stable Discharge instructions given to patient, family, Instructed on discharge instructions, follow up and referral plans. medication usage, Demonstrated understanding of instructions, follow-up care, medications, Prescriptions given X 1, 00:11 Patient left the ED. ha1 Signatures: Dispatcher [employer] EDMS Babita Martins RN RN 1 Kristyn Banegas RN RN Serene Gallo RN FILIPE 1 Kevin Pate MD MD sp4 Julianna Martinez RN RN tn1 Lisa Felix RN RN al5 Kaila Jefferson RN RN kb4 Corrections: (The following items were deleted from the chart) 11/26 20:11 20:10 PMHx: Speech impediment post CVA (Unknown); me1 me1 23:09 23:02 BP 109 / 73; Pulse 55bpm; Resp 16bpm; Pulse Ox 98% RA; Temp 97.9F; zm zm 11/27 00:12 10 23:00 BP 126 / 99; Pulse 56bpm; Resp 19bpm; Spontaneous; Pulse Ox 97% RA; zm ha1
--- NOTE | 2024-11-26 23:05 | EDPHYS ---
Physician Documentation [facility] Name: Jzaz Jones Age: 79 yrs Sex: Female : 1945 Arrival Date: 11/26/2024 Time: 19:58 Bed 8 Private MD: ED Physician Kevin Pate HPI: 11/26 20:01 This 79 yrs old Female presents to ER via Unassigned with complaints of sp4 general weakness . 11/27 19:31 Patient's family reported that she had some episodes of inappropriate laughter. Refused sp4 to take her medicines. Patient has history of prior CVA with right-sided hemiparesis and contractures on the right side. She is currently bedbound. Patient is being cared for at home . . 19:33 Patient's daughter reported associated symptom of unusual somnolence in the patient sp4 today. Patient has severe speech impairment and is nonverbal. . Historical: - Allergies: 11/26 20:10 Lisinopril; me1 - PMHx: 20:10 Anxiety; Cerebrovascular accident; CHF; Hypertension; Myocardial infarction; Right me1 sided weakness (Unknown); expressive aphasia (Unknown); - PSHx: 20:10 None; me1 - Immunization history:: Adult Immunizations up to date. - Infectious Disease History:: Denies. - Social history:: Smoking status: Patient denies any tobacco usage or history of. - Family history:: not pertinent. ROS: 11/27 19:33 Constitutional: Negative for fever, chills, and weight loss, positive for reported sp4 somnolence, inappropriate laughter, and refusal to take medicines at home All other systems are negative, Exam: 04:08 ECG was reviewed by the Attending Physician. EKG 2008 normal sinus bradycardia rate sp4 57 otherwise normal 19:34 Constitutional: Frail elderly female, with chronic right-sided hemiparesis from prior sp4 CVA. Patient is able to make sounds but is not able to speak on arrival. EMS reports patient nonverbal status is her baseline. Head/Face: Normocephalic, atraumatic. Eyes: Pupils equal round and reactive to light, extra-ocular motions intact. Lids and lashes normal. Conjunctiva and sclera are not injected. Cornea within normal limits. Periorbital areas with no swelling, redness, or edema. ENT: Nares patent. No nasal discharge, no septal abnormalities noted. Tympanic membranes are normal and external auditory canals are clear. Oropharynx with no redness, swelling, or masses, exudates, or evidence of obstruction, uvula midline. Mucous membranes moist. Neck: Trachea midline, no thyromegaly or masses palpated, and no cervical lymphadenopathy. Supple, full range of motion without nuchal rigidity, or vertebral point tenderness. Chest/axilla: Normal chest wall appearance and motion. Nontender with no deformity. No lesions are appreciated. Cardiovascular: Regular rate and rhythm with a normal S1 and S2. No gallops, murmurs, or rubs. No pulse deficits. Respiratory: Lungs have equal breath sounds bilaterally, clear to auscultation and percussion. No rales, rhonchi or wheezes noted. No increased work of breathing, no retractions or nasal flaring. Abdomen/GI: Soft, with normal bowel sounds. No distension or tympany. No guarding or rebound. No evidence of tenderness throughout. Back: No spinal tenderness. No costovertebral tenderness. Skin: Warm, dry with normal turgor. Normal color with no rashes, no lesions, and no evidence of cellulitis. MS/ Extremity: Pulses equal, no cyanosis. Right leg chronic contractures from prolonged immobility and CVA, right hand and arm contractures from prior CVA. Diffuse muscular atrophy significant physical debility. Neuro: Awake and alert, follows basic commands, moderate aphasia able to make sounds. Patient has right-sided hemiparesis from prior CVA, no new neurologic deficits reported Vital Signs: 11/26 20:07 BP 152 / 55; Pulse 57; Resp 18; Temp 97.8; Pulse Ox 100% ; Weight 84 kg; me1 22:00 BP 147 / 44; Pulse 56; Resp 18 S; Pulse Ox 98% on R/A; zm 22:30 BP 109 / 73; Pulse 55; Resp 16; Temp 97.9; Pulse Ox 98% on R/A; zm 23:10 BP 126 / 99; Pulse 56; Resp 19 S; Pulse Ox 97% on R/A; ha1 [place] Coma Score: 22:30 Eye Response: spontaneous(4). Motor Response: obeys commands(6). Verbal Response: zm inappropriate words(3). Total: 13. MDM: 21:43 Medical Screening Exam initiated sp4 21:46 ED course: COMPARISON: 09/03/2024 FINDINGS: INTRACRANIAL: No acute intracranial sp4 hemorrhage. No acute large vascular territory infarct. No hydrocephalus. No mass effect or midline shift. Remote moderate left MCA territory infarct. VASCULATURE: No visualized abnormalities in the arteries or dural venous sinuses. SCALP/SKULL: No calvarial fracture identified. No acute soft tissue abnormality. SINUSES: The visualized paranasal sinuses are mostly clear. No significant mastoid fluid. IMPRESSION: No acute intracranial abnormality. . ED course: COMPARISON: 09/03/2024 FINDINGS: LUNGS/PLEURA: Possible developing consolidation in the right upper lobe. Right midlung scarring. CARDIAC/MEDIASTINUM: The cardiac silhouette is within normal limits. UPPER ABDOMEN: No significant abnormality. BONES: No acute abnormality. LINES/TUBES/OTHER: N/A IMPRESSION: Possible developing right upper lobe consolidation. This could be related to overlapping anatomy due to patient's positioning. Could consider either a standard PA and lateral if the patient's condition permits or chest CT if indicated.. 11/27 19:34 Differential Diagnosis: electrolyte abnormality, hypoglycemia, pneumonia, seizure, TIA, sp4 volume depletion. Data reviewed: vital signs, nurses notes, EMS record. Data reviewed: lab test result(s), EKG, radiologic studies, CT scan, plain films. Consideration of Admission/Observation Escalation of care including admission/observation considered. ED course: Was offered admission for further assessment and hospital. However patient's vital signs are stable and her UTI could be managed by at home cefdinir. I looked at the chest x-ray and did not see evidence of significant lung infection. No signs of respiratory distress. All neurologic deficits are from prior hemiparesis. At this time patient stable for discharge. Patient's family opted to take her home.. 11/26 20:01 Order name: Basic Metabolic Panel; Complete Time: 21:43 sp4 11/26 20:01 Order name: CBC with Diff; Complete Time: 21:43 sp4 11/26 20:01 Order name: LFT's; Complete Time: 21:43 sp4 11/26 20:01 Order name: Magnesium; Complete Time: 21:43 sp4 11/26 20:01 Order name: NT PRO-BNP; Complete Time: 21:43 sp4 11/26 20:01 Order name: PT-INR; Complete Time: 21:43 sp4 11/26 20: Order name: Troponin HS; Complete Time: 21:43 sp4 11/26 20:02 Order name: UA Rfx Hai Cult if indicated; Complete Time: 21:43 sp4 11/26 20:03 Order name: CK; Complete Time: 21:43 sp4 11/26 20:03 Order name: TSH; Complete Time: 21:43 sp4 11/26 20:03 Order name: T4 Free; Complete Time: 21:43 sp4 11/26 20:03 Order name: Blood Culture Adult (2) sp4 11/26 20:03 Order name: Lactate w/ 2H reflex if indic.; Complete Time: 21:43 sp4 11/26 20:01 Order name: XRAY Chest (1 view); Complete Time: 21:43 sp4 11/26 20:01 Order name: CT Head Brain wo Cont; Complete Time: 21:43 sp4 11/26 20:01 Order name: Cardiac monitoring; Complete Time: 20:24 sp4 11/26 20:01 Order name: EKG - Nurse/Tech; Complete Time: 20:10 sp4 11/26 20:01 Order name: IV Saline Lock; Complete Time: 20:24 sp4 11/26 20:01 Order name: Labs collected and sent; Complete Time: 20:24 sp4 11/26 20:01 Order name: O2 Per Protocol; Complete Time: 20:10 sp4 11/26 20:01 Order name: O2 Sat Monitoring; Complete Time: 20:10 sp4 EC/06 20:08 Rate is 57 beats/min. Rhythm is regular, Sinus bradycardia. QRS [place] is Normal. [place] sp4 interval is normal. QRS interval is normal. QT interval is normal. No Q waves. T waves are Normal. No ST changes noted. Clinical impression: No evidence of ischemia. Interpreted by me. Reviewed by me. Administered Medications: 20:24 Drug: NS 0.9% IV 500 ml 500 ml IV at 1 bolus once; to be given as a bolus over 30 al5 minutes Volume: 500 ml; Route: IV; Rate: 1 bolus; Site: left antecubital; 22:48 Follow up: Response: No adverse reaction; IV Status: Completed infusion ha1 22:09 Not Given (Physician Discretion): grams 100 ml IVPB once; (Note: Albumin 25% sp4 concentration) 22:09 Not Given (Physician Discretion): grams 100 ml IVPB once; (Note: Albumin 25% sp4 concentration) 22:29 Drug: Rocephin - Rocephin (cefTRIAXone) IVPB 1 grams IVPB once over 30 mins; (mix in 50 zm mL NS) Route: IVPB; Infused Over: 30 mins; Site: left antecubital; 22:48 Follow up: Response: No adverse reaction; IV Status: Completed infusion ha1 Disposition Summary: 11/26/24 23:04 Discharge Ordered Notes: Location: Home sp4 Problem: new sp4 Symptoms: have improved sp4 Condition: Stable sp4 Diagnosis - UTI/ Urinary tract infection, site not specified sp4 - Physical deconditioning secondary to prolonged immobility, acute urinary tract sp4 infection, Followup: sp4 - With: Lei Pulido MD - When: 5 - 6 days - Reason: Recheck today's complaints Discharge Instructions: - Discharge Summary Sheet sp4 - Urinary Tract Infection, Adult, [id number] sp4 Forms: - Patient Portal Instructions sp4 Prescriptions: - cefdinir 300 mg Oral capsule - take 1 capsule ORAL route every 12 hours for 10 days; 20 capsule; Refills: 0, sp4 Product Selection Permitted Signatures: Dispatcher [employer] Kristyn Ariza RN RN zm Potepalov, Sergey, MD MD sp4 Julianna Martinez RN RN me1 Lisa Felix RN RN al5 Serene Gallo RN ha1 Corrections: (The following items were deleted from the chart) 20:02 20:02 BASIC METABOLIC PANEL+C.LAB.BRZ ordered. EDMS EDMS 20:02 20:02 CBC+H.LAB.BRZ ordered. EDMS EDMS 20:02 20:02 HEPATIC FUNCTION+C.LAB.BRZ ordered. EDMS EDMS 20:02 20:02 MAGNESIUM+C.LAB.BRZ ordered. EDMS EDMS 20:02 20:02 PROBNP+C.LAB.BRZ ordered. EDMS EDMS 20:02 20:02 PROTIME (+INR)+COAG.LAB.BRZ ordered. EDMS EDMS 20:02 20:02 Troponin High Sensitivity+C.LAB.BRZ ordered. EDMS EDMS 20:02 20:02 Chest Single View+RAD.RAD.BRZ ordered. EDMS EDMS 20:02 20:02 Head Brain Wo Cont+CT.RAD.BRZ ordered. EDMS EDMS 20:03 20:03 THYROID STIMULAT HORMONE+C.LAB.BRZ ordered. EDMS EDMS 20:03 20:03 T4 FREE+C.LAB.BRZ ordered. EDMS EDMS 20:11 20:10 PMHx: Speech impediment post CVA (Unknown); me1 me1
[2024-11-27 00:38] VITALS: TEMP 97.9
[2024-11-27 00:40] VITALS: BP 126/99; O2SAT 97
== END 2024-11-27 00:11 | disposition home or self-care (01) ==
LOC: ER 19:58
DX: N39.0 Urinary tract infection, site not specified (principal); R53.81 Other malaise; G81.91 Hemiplegia, unspecified affecting right dominant side
CPT/HCPCS: 96365; 96361; 93005; 87040 ×2; 85025; 81001; 80048; 36415; 83735; 82550; 85610; 80076; 83605; 84443; 84484; 84439; 83880; 70450; 71045; 99284; J7040; J0696; P9047